=== PATIENT | male | born 1940 | race Caucasian/White ===

== ENCOUNTER 2017-06-29 17:19 | Emergency (ER) | payer MEDICARE ==
[~2017-06-29] VITALS: Ht 182.9 cm; Wt 115.7 kg
[~2017-06-29 17:19] MED LIST: ALBU3IS INH; ALBU90OI6 INH; ASPI325 PO; AZIT250; CAPT25; CAPT25 PO; CEPH500 PO; CIPR500 PO; CLAR500 PO; CLIN300 PO; Cipro500 MG PO; DILT120ERA PO; DILT60 PO; DIPH25 PO; DOXY100 PO; ELIQUIS5 MG PO; ESOM20; ESOM20 PO; FLUSAL2505; FLUSAL2505 IH; FURO40; FURO40 PO; Flonase 0.05% N16 GM; GABA300 PO; GLIP2.5ER PO; GLYB2.5 PO; GUAI600T33 PO; HYDACE10B PO; HYDACE5 PO; HYDACE7.5; HYDCHL25; HYDCHL50; INDO50 PO; ISRA5 PO; LEVFLO500 PO; LEVO750 PO; LISI20 PO; LORA2 PO; METF500; METF500 PO; METO.5 PO; METO100ER PO; METO2.5 PO; METO25ER; METO25ER PO; METO50ER; METO50ER PO; METR500 PO; MONT10T; MONT10T PO; Micro-K10 MEQ PO; Mupirocin22 GM TOP; Norco 7.5-3251 EACH PO; OMEPRAZOLE MAGN20 MG PO; ONDA4 PO; OSEL75CA PO; PIOG15; PIOG30 PO; PIOG45 PO; POTCHL10ER; POTCHL10ER PO; PRED10 PO; PRED20 PO; PROCODE120 PO; Prednisone50 MG PO; Prinivil5 MG; RANI150 PO; SIMV40 PO; SODCHL.65S; Silvadene20 GM TOP; TRAZ100; Zofran Odt4 MG SL; [UNRECOGNIZED DRUG - CODE]; [UNRECOGNIZED DRUG - REMARK]
[2017-06-29] MEDS ORDERED: Voltaren100 GM TOP (18:49)
[2018-01-10] MEDS ORDERED: METO100ER PO (19:55)
[2018-01-11] MEDS ORDERED: GABA300 PO (08:26)
[2018-01-11] MEDS ORDERED: CITA20 PO (17:30)
[2018-01-17] MEDS ORDERED: LIDO700A20 TOP (13:00)
[2018-01-17] MEDS ORDERED: CLARITIN10 MG PO (13:02)
[2018-01-17] MEDS ORDERED: LORA2 PO (13:03)
[2018-01-17] MEDS ORDERED: PIOG30 PO (13:04)
[2018-05-26] MEDS ORDERED: ALLO100 PO (17:10)
[2018-05-26] MEDS ORDERED: METO2.5 PO (17:11)
[2018-05-26] MEDS ORDERED: LOSA50 PO (17:15)
[2018-05-26] MEDS ORDERED: MONT10T PO (17:17)
[2018-05-26] MEDS ORDERED: ONDA8 PO (17:18)
[2018-05-26] MEDS ORDERED: ALBU90OI INH (17:19)
[2018-05-26] MEDS ORDERED: CEPH500 PO (17:27)
[2018-06-01] MEDS ORDERED: ALBU90OI INH (14:39)
[2018-06-01] MEDS ORDERED: FURO40 PO (14:47)
== END 2017-06-29 18:52 | disposition home or self-care (01) ==
LOC: ER 17:19
DX: M25.561 Pain in right knee (principal); E11.9 Type 2 diabetes mellitus without complications; I10 Essential (primary) hypertension; I48.91 Unspecified atrial fibrillation; Z79.84 Long term (current) use of oral hypoglycemic drugs; Z87.891 Personal history of nicotine dependence; Z88.0 Allergy status to penicillin; Z91.018 Allergy to other foods; Z79.899 Other long term (current) drug therapy
CPT/HCPCS: 73562-RT; 99282

== ENCOUNTER → 2017-07-15 | Outpatient (CLI) | payer MEDICARE ==
[~2017-07-15] MED LIST changes: +ALBU90OI INH; +ALLO100 PO; +BENZ100A PO; +CITA20 PO; +CLARITIN10 MG PO; +HYDR1TAB94 PO; +K-Tab10 MEQ PO; +LIDO700A20 TOP; +LOSA50 PO; +ONDA8 PO; +Voltaren100 GM TOP
[2017-07-15 14:26] LABS: BASOPHILS ABSOLUTE AUTO 0.05 K/mm3 (0.00-0.23); BASOPHILS PERCENT AUTO 1 % (0-2); EOSINOPHILS ABSOLUTE AUTO 0.16 K/mm3 (0.00-0.68); EOSINOPHILS PERCENT AUTO 2 % (0-6); Hematocrit 33.5 % (37.0-53.0); Hemoglobin 11.1 g/dL (13.5-17.5); IMMATURE GRAN ABSOLUTE AUTO 0.09 K/mm3 (0.00-0.10); IMMATURE GRAN PERCENT AUTO 1 % (0-1); LYMPHOCYTES ABSOLUTE AUTO 1.96 K/mm3 (0.84-5.20); LYMPHOCYTES PERCENT AUTO 24 % (21-46); MONOCYTES ABSOLUTE AUTO 0.63 K/mm3 (0.16-1.47); MONOCYTES PERCENT AUTO 8 % (4-13); Mean Corpuscular HGB 28.3 pg (26.0-34.0); Mean Corpuscular HGB Conc 33.1 g/dL (31.5-36.5); Mean Corpuscular Volume 86 fL (80-100); Mean Platelet Volume 10.1 fL (9.1-12.4); NEUTROPHILS ABSOLUTE AUTO 5.39 K/mm3 (1.96-9.15); NEUTROPHILS PERCENT AUTO 65 % (41-73); Platelet Count 207 K/mm3 (150-400); RDW Coefficient Variation 16.1 % (11.7-14.2); RDW Standard Deviation 49.5 fL (35.1-46.3); Red Blood Cell Count 3.92 M/mm3 (4.30-5.90); White Blood Cell Count 8.28 K/mm3 (4.00-11.30)
[2017-07-15 14:34] LABS: Alanine Aminotransfer (ALT/SGP 20 U/L (12-78); Albumin, Blood 3.5 g/dL (3.4-5.0); Albumin/Globulin Ratio 1.1 (0.8-1.8); Alk Phos 99 U/L (40-126); Anion Gap 8 mmol/L (6-16); Aspartate Aminotrans (AST/SGOT 19 U/L (12-37); Bilirubin, Total 0.9 mg/dL (0.1-1.0); Blood Urea Nitrogen 10 mg/dL (8-24); Bun/Creatinine Ratio 9.5 (12.0-20.0); CO2, Blood 25 mmol/L (21-32); Calcium, Blood 8.6 mg/dL (8.5-10.1); Chloride, Blood 98 mmol/L (98-108); Creatinine, Blood 1.05 mg/dL (0.60-1.20); Globulin, Blood 3.1 g/dL (2.2-4.0); Glomerular Filtration Rate >60 (60-); Glucose, Blood 124 mg/dL (70-99); Potassium, Blood 4.4 mmol/L (3.5-5.5); Sodium, Blood 131 mmol/L (136-145); Total Protein, Blood 6.6 g/dL (6.4-8.2)
== END ==
LOC: LAB SHORT 14:11
PROVIDERS: Physician Assistant
DX: R06.00 Dyspnea, unspecified (principal)
CPT/HCPCS: 80053; 83880; 85025

== ENCOUNTER → 2017-11-30 | Outpatient (CLI) | payer MEDICARE ==
[~2017-11-30] MED LIST changes: -ALBU90OI INH; -ALLO100 PO; -BENZ100A PO; -CITA20 PO; -CLARITIN10 MG PO; +DILT120 PO; -GLIP2.5ER PO; +GLIP5 PO; -HYDR1TAB94 PO; -K-Tab10 MEQ PO; -LIDO700A20 TOP; -LOSA50 PO; +Norco 10-325 T1 EACH PO; -ONDA8 PO
== END | disposition home or self-care (01) ==
LOC: LAB 14:30 → LAB SHORT 14:30
DX: L03.115 Cellulitis of right lower limb (principal)
CPT/HCPCS: 87070; 87205

== ENCOUNTER 2018-01-05 14:08 | Emergency (ER) | payer MEDICARE ==
[~2018-01-05] VITALS: Ht 185.4 cm; Wt 118.8 kg
[2018-01-05 16:24] LABS: BASOPHILS ABSOLUTE AUTO 0.06 K/mm3 (0.00-0.23); BASOPHILS PERCENT AUTO 1 % (0-2); EOSINOPHILS ABSOLUTE AUTO 0.17 K/mm3 (0.00-0.68); EOSINOPHILS PERCENT AUTO 2 % (0-6); Hemoglobin 12.3 g/dL (13.5-17.5); IMMATURE GRAN ABSOLUTE AUTO 0.09 K/mm3 (0.00-0.10); IMMATURE GRAN PERCENT AUTO 1 % (0-1); LYMPHOCYTES ABSOLUTE AUTO 2.57 K/mm3 (0.84-5.20); LYMPHOCYTES PERCENT AUTO 22 % (21-46); MONOCYTES ABSOLUTE AUTO 1.65 K/mm3 (0.16-1.47); MONOCYTES PERCENT AUTO 14 % (4-13); Mean Corpuscular HGB 28.1 pg (26.0-34.0); Mean Corpuscular HGB Conc 33.2 g/dL (31.5-36.5); Mean Corpuscular Volume 85 fL (80-100); Mean Platelet Volume 9.4 fL (9.1-12.4); NEUTROPHILS ABSOLUTE AUTO 6.91 K/mm3 (1.96-9.15); NEUTROPHILS PERCENT AUTO 60 % (41-73); Platelet Count 325 K/mm3 (150-400); RDW Coefficient Variation 14.2 % (11.7-14.2); Red Blood Cell Count 4.37 M/mm3 (4.30-5.90); White Blood Cell Count 11.45 K/mm3 (4.00-11.30)
[2018-01-05 16:39] LABS: Bun/Creatinine Ratio 33.8 (12.0-20.0); Calcium, Blood 9.4 mg/dL (8.5-10.1); Creatinine, Blood 1.45 mg/dL (0.60-1.20); Potassium, Blood 2.7 mmol/L (3.5-5.5)
[2018-01-05] MEDS ORDERED: HYDR1TAB94 PO (17:22)
[2018-01-05] MEDS ORDERED: K-Tab10 MEQ PO (17:22)
== END 2018-01-05 19:22 | disposition home or self-care (01) ==
LOC: ER 14:08
PROVIDERS: Emergency Medicine
DX: M17.0 Bilateral primary osteoarthritis of knee (principal); E87.6 Hypokalemia; E11.40 Type 2 diabetes mellitus with diabetic neuropathy, unspecified; I10 Essential (primary) hypertension; I48.91 Unspecified atrial fibrillation; Z88.0 Allergy status to penicillin; Z91.018 Allergy to other foods; Z79.899 Other long term (current) drug therapy; Z79.01 Long term (current) use of anticoagulants; Z79.84 Long term (current) use of oral hypoglycemic drugs
CPT/HCPCS: 36415; 80048; 82550; 85025; 96365; 96366; 96368; 99283-25; J3475; J3480

== ENCOUNTER → 2018-01-24 | Outpatient (CLI) | payer MEDICARE ==
[~2018-01-24] MED LIST changes: +CITA20 PO; +CLARITIN10 MG PO; +HYDR1TAB94 PO; +K-Tab10 MEQ PO; +LIDO700A20 TOP
== END | disposition home or self-care (01) ==
LOC: LAB SHORT 17:00 → LAB 17:00
DX: L03.115 Cellulitis of right lower limb (principal)
CPT/HCPCS: 87070; 87077; 87147; 87186; 87205

== ENCOUNTER 2018-02-18 12:33 | Inpatient (IN) | payer MEDICARE ==
[~2018-02-18] VITALS: Ht 182.9 cm; Wt 125.0 kg
[2018-02-18 13:01] LABS: BASOPHILS ABSOLUTE AUTO 0.06 K/mm3 (0.00-0.23); BASOPHILS PERCENT AUTO 1 % (0-2); EOSINOPHILS ABSOLUTE AUTO 0.14 K/mm3 (0.00-0.68); EOSINOPHILS PERCENT AUTO 2 % (0-6); Hematocrit 35.1 % (37.0-53.0); Hemoglobin 11.1 g/dL (13.5-17.5); IMMATURE GRAN ABSOLUTE AUTO 0.04 K/mm3 (0.00-0.10); IMMATURE GRAN PERCENT AUTO 1 % (0-1); LYMPHOCYTES ABSOLUTE AUTO 2.13 K/mm3 (0.84-5.20); LYMPHOCYTES PERCENT AUTO 26 % (21-46); MONOCYTES ABSOLUTE AUTO 0.86 K/mm3 (0.16-1.47); MONOCYTES PERCENT AUTO 11 % (4-13); Mean Corpuscular HGB 26.9 pg (26.0-34.0); Mean Corpuscular HGB Conc 31.6 g/dL (31.5-36.5); Mean Corpuscular Volume 85 fL (80-100); Mean Platelet Volume 9.4 fL (9.1-12.4); NEUTROPHILS ABSOLUTE AUTO 4.91 K/mm3 (1.96-9.15); NEUTROPHILS PERCENT AUTO 60 % (41-73); Platelet Count 298 K/mm3 (150-400); RDW Coefficient Variation 15.9 % (11.7-14.2); RDW Standard Deviation 48.5 fL (35.1-46.3); Red Blood Cell Count 4.12 M/mm3 (4.30-5.90); White Blood Cell Count 8.14 K/mm3 (4.00-11.30)
[2018-02-18 13:25] LABS: Alanine Aminotransfer (ALT/SGP 21 U/L (12-78); Albumin/Globulin Ratio 0.7 (0.8-1.8); Alk Phos 106 U/L (50-136); Anion Gap 10 mmol/L (6-16); Aspartate Aminotrans (AST/SGOT 36 U/L (12-37); Bilirubin, Total 3.2 mg/dL (0.1-1.0); Blood Urea Nitrogen 8 mg/dL (8-24); Bun/Creatinine Ratio 9.5 (12.0-20.0); CO2, Blood 25 mmol/L (21-32); Calcium, Blood 7.9 mg/dL (8.5-10.1); Chloride, Blood 91 mmol/L (98-108); Creatinine, Blood 0.84 mg/dL (0.60-1.20); Ethanol (Alcohol), Blood, Med <3 mg/dL; Globulin, Blood 4.2 g/dL (2.2-4.0); Glomerular Filtration Rate >60 (60-); Glucose, Blood 139 mg/dL (70-99); Magnesium, Blood 1.7 mg/dL (1.6-2.4); Potassium, Blood 4.1 mmol/L (3.5-5.5); Sodium, Blood 126 mmol/L (136-145); Total Protein, Blood 7.2 g/dL (6.4-8.2); Troponin I <0.015 ng/mL (0.000-0.040)
[2018-02-18 13:40] LABS: Bicarbonate Venous 26.7 mmol/L (24.0-30.0); PCO2 Venous 44.3 mmHg (38-42); PO2 Venous 149 mmHg (38-42); pH Blood Venous 7.41 (7.34-7.37)
[2018-02-18 13:52] LABS: Source, Urine Clean Catch
[2018-02-18 14:07] LABS: Appearance, Urine Clear (Clear); Bilirubin, Urine Neg (Neg); Blood, Urine Neg (Neg); Color, Urine Yellow (P-Yellow); Glucose Qualitative, Urine Neg (Neg); Ketones, Urine Neg (Neg); Leukocyte Esterase, Urine Neg (Neg); Nitrite, Urine Neg (Neg); Protein, Urine 1+ (Neg); Urobilinogen, Urine 1+ (Normal); pH, Urine 6.5 (5.0-8.0)
[2018-02-18 14:11] LABS: U Amphetamine Screen Not Detected; U Barbituate Screen Not Detected; U Benzodiazapine Screen DETECTED; U Buprenorphine Screen Not Detected; U Cannabinoids Screen Not Detected; U Cocaine Screen Not Detected; U Methadone Screen Not Detected; U Methamphetamine Screen Not Detected; U Opiates Screen DETECTED; U Oxycodone Screen Not Detected; U Phencyclidine Screen Not Detected; U Propoxyphene Screen Not Detected
[2018-02-19 04:14] LABS: Hematocrit 34.4 % (37.0-53.0); Hemoglobin 11.1 g/dL (13.5-17.5); Mean Corpuscular HGB 27.3 pg (26.0-34.0); Mean Corpuscular HGB Conc 32.3 g/dL (31.5-36.5); Mean Corpuscular Volume 85 fL (80-100); Mean Platelet Volume 8.8 fL (9.1-12.4); Platelet Count 270 K/mm3 (150-400); RDW Coefficient Variation 15.8 % (11.7-14.2); RDW Standard Deviation 48.3 fL (35.1-46.3); Red Blood Cell Count 4.07 M/mm3 (4.30-5.90); White Blood Cell Count 7.92 K/mm3 (4.00-11.30)
[2018-02-19 04:33] LABS: Alanine Aminotransfer (ALT/SGP 16 U/L (12-78); Albumin/Globulin Ratio 0.8 (0.8-1.8); Alk Phos 99 U/L (50-136); Anion Gap 10 mmol/L (6-16); Aspartate Aminotrans (AST/SGOT 26 U/L (12-37); Bilirubin, Total 2.5 mg/dL (0.1-1.0); Blood Urea Nitrogen 8 mg/dL (8-24); CO2, Blood 26 mmol/L (21-32); Chloride, Blood 95 mmol/L (98-108); Creatinine, Blood 0.89 mg/dL (0.60-1.20); Globulin, Blood 3.8 g/dL (2.2-4.0); Glomerular Filtration Rate >60 (60-); Glucose, Blood 100 mg/dL (70-99); Potassium, Blood 3.9 mmol/L (3.5-5.5); Sodium, Blood 131 mmol/L (136-145); Total Protein, Blood 6.8 g/dL (6.4-8.2)
[2018-02-19 09:00] LABS: Adenovirus F 40/41 Not Detected (NOT DETECT); Astrovirus Not Detected (NOT DETECT); Campylobacter Sp Not Detected (NOT DETECT); Cryptosporidium Not Detected (NOT DETECT); Cyclospora Cayetanensis Not Detected (NOT DETECT); E. Coli O157 Not Detected (NOT DETECT); Entamoeba Histolytica Not Detected (NOT DETECT); Enteroaggregative E. coli-EAEC Not Detected (NOT DETECT); Enteropathogenic E. coli-EPEC Not Detected (NOT DETECT); Enterotoxigenic E. coli-ETEC Not Detected (NOT DETECT); Giardia Lamblia Not Detected (NOT DETECT); Norovirus GI/GII Not Detected (NOT DETECT); Plesiomonas Shigelloides Not Detected (NOT DETECT); Rotavirus A Not Detected (NOT DETECT); Sapovirus Not Detected (NOT DETECT); Shiga Toxin-prod E. coli-STEC Not Detected (NOT DETECT); Shigella/Enteroin E. coli-EIEC Not Detected (NOT DETECT); Vibrio Cholerae Not Detected (NOT DETECT); Vibrio Sp Not Detected (NOT DETECT); Yersinia Enterocolitica Not Detected (NOT DETECT)
[2018-02-19 10:35] LABS: Salmonella Sp Detected (NOT DETECT)
[2018-02-20 04:58] LABS: Anion Gap 10 mmol/L (6-16); Blood Urea Nitrogen 9 mg/dL (8-24); Bun/Creatinine Ratio 10.1 (12.0-20.0); CO2, Blood 28 mmol/L (21-32); Calcium, Blood 8.4 mg/dL (8.5-10.1); Chloride, Blood 97 mmol/L (98-108); Creatinine, Blood 0.89 mg/dL (0.60-1.20); Glomerular Filtration Rate >60 (60-); Glucose, Blood 132 mg/dL (70-99); Potassium, Blood 3.3 mmol/L (3.5-5.5); Sodium, Blood 135 mmol/L (136-145)
== END 2018-02-20 14:04 | disposition home or self-care (01) | DRG 372 ==
LOC: ER 12:33 → SURS 12:34
PROVIDERS: Emergency Medicine; Hospitalist; Internal Medicine
DX: A02.0 Salmonella enteritis (principal); E87.1 Hypo-osmolality and hyponatremia; I50.30 Unspecified diastolic (congestive) heart failure; L97.919 Non-pressure chronic ulcer of unspecified part of right lower leg with unspecified severity; I11.0 Hypertensive heart disease with heart failure; I48.2 Chronic atrial fibrillation; E11.40 Type 2 diabetes mellitus with diabetic neuropathy, unspecified; E78.00 Pure hypercholesterolemia, unspecified; G47.33 Obstructive sleep apnea (adult) (pediatric); J44.9 Chronic obstructive pulmonary disease, unspecified; K21.9 Gastro-esophageal reflux disease without esophagitis; M19.90 Unspecified osteoarthritis, unspecified site; K80.20 Calculus of gallbladder without cholecystitis without obstruction; F32.9 Major depressive disorder, single episode, unspecified; G89.4 Chronic pain syndrome; Z99.81 Dependence on supplemental oxygen; Z87.891 Personal history of nicotine dependence; Z88.0 Allergy status to penicillin; Z91.018 Allergy to other foods; Z79.01 Long term (current) use of anticoagulants; Z79.84 Long term (current) use of oral hypoglycemic drugs; Z79.899 Other long term (current) drug therapy
CPT/HCPCS: 36415; 71045; 74177; 76705; 80048; 80053; 82803; 82947; 83690; 83735; 84484; 85025; 85027; 87507; 93005; 93010; 94640; 94760; 96374; 96375; 99285-25; G0480; J1200; J1940; J2405; J2765; J7030; J7120; Q9967

== ENCOUNTER 2018-02-21 10:51 | Inpatient (IN) | payer MEDICARE ==
[~2018-02-21] VITALS: Ht 182.9 cm; Wt 142.0 kg
[2018-02-21 11:53] LABS: BASOPHILS ABSOLUTE AUTO 0.06 K/mm3 (0.00-0.23); BASOPHILS PERCENT AUTO 0 % (0-2); EOSINOPHILS PERCENT AUTO 0 % (0-6); Hematocrit 35.8 % (37.0-53.0); Hemoglobin 11.4 g/dL (13.5-17.5); IMMATURE GRAN ABSOLUTE AUTO 0.11 K/mm3 (0.00-0.10); IMMATURE GRAN PERCENT AUTO 1 % (0-1); LYMPHOCYTES ABSOLUTE AUTO 1.38 K/mm3 (0.84-5.20); LYMPHOCYTES PERCENT AUTO 9 % (21-46); MONOCYTES ABSOLUTE AUTO 1.46 K/mm3 (0.16-1.47); MONOCYTES PERCENT AUTO 9 % (4-13); Mean Corpuscular HGB 27.3 pg (26.0-34.0); Mean Corpuscular HGB Conc 31.8 g/dL (31.5-36.5); Mean Corpuscular Volume 86 fL (80-100); Mean Platelet Volume 8.7 fL (9.1-12.4); NEUTROPHILS ABSOLUTE AUTO 12.94 K/mm3 (1.96-9.15); NEUTROPHILS PERCENT AUTO 81 % (41-73); Platelet Count 244 K/mm3 (150-400); RDW Coefficient Variation 16.6 % (11.7-14.2); RDW Standard Deviation 50.3 fL (35.1-46.3); Red Blood Cell Count 4.18 M/mm3 (4.30-5.90); White Blood Cell Count 15.95 K/mm3 (4.00-11.30)
[2018-02-21 12:10] LABS: Alanine Aminotransfer (ALT/SGP 19 U/L (12-78); Albumin, Blood 3.1 g/dL (3.4-5.0); Albumin/Globulin Ratio 0.8 (0.8-1.8); Alk Phos 96 U/L (50-136); Anion Gap 11 mmol/L (6-16); Aspartate Aminotrans (AST/SGOT 29 U/L (12-37); Bilirubin, Total 2.5 mg/dL (0.1-1.0); Blood Urea Nitrogen 7 mg/dL (8-24); Bun/Creatinine Ratio 9.3 (12.0-20.0); CO2, Blood 25 mmol/L (21-32); Calcium, Blood 8.2 mg/dL (8.5-10.1); Chloride, Blood 92 mmol/L (98-108); Creatinine, Blood 0.76 mg/dL (0.60-1.20); Glomerular Filtration Rate >60 (60-); Glucose, Blood 129 mg/dL (70-99); Potassium, Blood 3.8 mmol/L (3.5-5.5); Sodium, Blood 128 mmol/L (136-145); Total Protein, Blood 7.1 g/dL (6.4-8.2)
[2018-02-21 16:11] LABS: Source, Urine Clean Catch
[2018-02-21 16:16] LABS: Appearance, Urine Clear (Clear); Bilirubin, Urine Neg (Neg); Blood, Urine 2+ (Neg); Color, Urine Yellow (P-Yellow); Glucose Qualitative, Urine Neg (Neg); Ketones, Urine 3+ (Neg); Leukocyte Esterase, Urine 1+ (Neg); Nitrite, Urine Neg (Neg); Protein, Urine 2+ (Neg); Specific Gravity, Urine 1.015 (1.003-1.022); Urobilinogen, Urine NORM (Normal)
[2018-02-21 16:28] LABS: Bacteria Rare /hpf; Red Blood Cells, Urine 0-2 /hpf (0-2); Squamous Epithelial Cells Rare /hpf (Few); White Blood Cells, Urine 0-2 /hpf (0-5)
[2018-02-22 05:34] LABS: BASOPHILS ABSOLUTE AUTO 0.02 K/mm3 (0.00-0.23); BASOPHILS PERCENT AUTO 0 % (0-2); EOSINOPHILS PERCENT AUTO 0 % (0-6); Hematocrit 32.5 % (37.0-53.0); Hemoglobin 10.4 g/dL (13.5-17.5); IMMATURE GRAN ABSOLUTE AUTO 0.05 K/mm3 (0.00-0.10); IMMATURE GRAN PERCENT AUTO 1 % (0-1); LYMPHOCYTES ABSOLUTE AUTO 0.65 K/mm3 (0.84-5.20); LYMPHOCYTES PERCENT AUTO 7 % (21-46); MONOCYTES ABSOLUTE AUTO 0.85 K/mm3 (0.16-1.47); MONOCYTES PERCENT AUTO 10 % (4-13); Mean Corpuscular HGB 26.8 pg (26.0-34.0); Mean Corpuscular Volume 84 fL (80-100); Mean Platelet Volume 9.1 fL (9.1-12.4); NEUTROPHILS ABSOLUTE AUTO 7.26 K/mm3 (1.96-9.15); NEUTROPHILS PERCENT AUTO 82 % (41-73); Platelet Count 201 K/mm3 (150-400); RDW Coefficient Variation 16.4 % (11.7-14.2); RDW Standard Deviation 49.4 fL (35.1-46.3); Red Blood Cell Count 3.88 M/mm3 (4.30-5.90); White Blood Cell Count 8.83 K/mm3 (4.00-11.30)
[2018-02-22 05:57] LABS: Alanine Aminotransfer (ALT/SGP 18 U/L (12-78); Albumin, Blood 2.5 g/dL (3.4-5.0); Albumin/Globulin Ratio 0.7 (0.8-1.8); Alk Phos 74 U/L (50-136); Anion Gap 11 mmol/L (6-16); Aspartate Aminotrans (AST/SGOT 32 U/L (12-37); Bilirubin, Direct 0.7 mg/dL (0.0-0.3); Bilirubin, Indirect 1.2 mg/dL (0.1-0.7); Bilirubin, Total 1.9 mg/dL (0.1-1.0); Blood Urea Nitrogen 8 mg/dL (8-24); Bun/Creatinine Ratio 11.2 (12.0-20.0); CO2, Blood 23 mmol/L (21-32); Calcium, Blood 7.9 mg/dL (8.5-10.1); Chloride, Blood 93 mmol/L (98-108); Creatinine, Blood 0.71 mg/dL (0.60-1.20); Globulin, Blood 3.5 g/dL (2.2-4.0); Glomerular Filtration Rate >60 (60-); Glucose, Blood 134 mg/dL (70-99); Potassium, Blood 2.9 mmol/L (3.5-5.5); Sodium, Blood 127 mmol/L (136-145)
[2018-02-23 04:59] LABS: BASOPHILS ABSOLUTE AUTO 0.02 K/mm3 (0.00-0.23); BASOPHILS PERCENT AUTO 0 % (0-2); EOSINOPHILS ABSOLUTE AUTO 0.03 K/mm3 (0.00-0.68); EOSINOPHILS PERCENT AUTO 1 % (0-6); Hemoglobin 10.2 g/dL (13.5-17.5); IMMATURE GRAN ABSOLUTE AUTO 0.04 K/mm3 (0.00-0.10); IMMATURE GRAN PERCENT AUTO 1 % (0-1); LYMPHOCYTES ABSOLUTE AUTO 0.93 K/mm3 (0.84-5.20); LYMPHOCYTES PERCENT AUTO 15 % (21-46); MONOCYTES ABSOLUTE AUTO 0.93 K/mm3 (0.16-1.47); MONOCYTES PERCENT AUTO 15 % (4-13); Mean Corpuscular HGB 27.1 pg (26.0-34.0); Mean Corpuscular HGB Conc 32.9 g/dL (31.5-36.5); Mean Corpuscular Volume 82 fL (80-100); NEUTROPHILS ABSOLUTE AUTO 4.38 K/mm3 (1.96-9.15); NEUTROPHILS PERCENT AUTO 69 % (41-73); Platelet Count 184 K/mm3 (150-400); RDW Coefficient Variation 16.1 % (11.7-14.2); RDW Standard Deviation 48.1 fL (35.1-46.3); Red Blood Cell Count 3.76 M/mm3 (4.30-5.90); White Blood Cell Count 6.33 K/mm3 (4.00-11.30)
[2018-02-23 05:16] LABS: Alanine Aminotransfer (ALT/SGP 17 U/L (12-78); Albumin, Blood 2.4 g/dL (3.4-5.0); Albumin/Globulin Ratio 0.7 (0.8-1.8); Alk Phos 68 U/L (50-136); Anion Gap 9 mmol/L (6-16); Aspartate Aminotrans (AST/SGOT 27 U/L (12-37); Bilirubin, Total 1.5 mg/dL (0.1-1.0); Blood Urea Nitrogen 10 mg/dL (8-24); Bun/Creatinine Ratio 13.9 (12.0-20.0); CO2, Blood 25 mmol/L (21-32); Calcium, Blood 7.4 mg/dL (8.5-10.1); Chloride, Blood 94 mmol/L (98-108); Creatinine, Blood 0.72 mg/dL (0.60-1.20); Globulin, Blood 3.3 g/dL (2.2-4.0); Glomerular Filtration Rate >60 (60-); Glucose, Blood 114 mg/dL (70-99); Sodium, Blood 128 mmol/L (136-145); Total Protein, Blood 5.7 g/dL (6.4-8.2)
[2018-02-24 04:52] LABS: BASOPHILS ABSOLUTE AUTO 0.03 K/mm3 (0.00-0.23); BASOPHILS PERCENT AUTO 1 % (0-2); EOSINOPHILS ABSOLUTE AUTO 0.12 K/mm3 (0.00-0.68); EOSINOPHILS PERCENT AUTO 2 % (0-6); Hematocrit 31.6 % (37.0-53.0); Hemoglobin 10.1 g/dL (13.5-17.5); IMMATURE GRAN ABSOLUTE AUTO 0.04 K/mm3 (0.00-0.10); IMMATURE GRAN PERCENT AUTO 1 % (0-1); LYMPHOCYTES ABSOLUTE AUTO 1.32 K/mm3 (0.84-5.20); LYMPHOCYTES PERCENT AUTO 25 % (21-46); MONOCYTES ABSOLUTE AUTO 0.76 K/mm3 (0.16-1.47); MONOCYTES PERCENT AUTO 15 % (4-13); Mean Corpuscular HGB 26.8 pg (26.0-34.0); Mean Corpuscular Volume 84 fL (80-100); Mean Platelet Volume 9.2 fL (9.1-12.4); NEUTROPHILS ABSOLUTE AUTO 2.96 K/mm3 (1.96-9.15); NEUTROPHILS PERCENT AUTO 57 % (41-73); Platelet Count 181 K/mm3 (150-400); RDW Coefficient Variation 15.8 % (11.7-14.2); RDW Standard Deviation 47.9 fL (35.1-46.3); Red Blood Cell Count 3.77 M/mm3 (4.30-5.90); White Blood Cell Count 5.23 K/mm3 (4.00-11.30)
[2018-02-24 05:06] LABS: Anion Gap 8 mmol/L (6-16); Blood Urea Nitrogen 11 mg/dL (8-24); Bun/Creatinine Ratio 14.9 (12.0-20.0); CO2, Blood 25 mmol/L (21-32); Calcium, Blood 7.7 mg/dL (8.5-10.1); Chloride, Blood 98 mmol/L (98-108); Creatinine, Blood 0.74 mg/dL (0.60-1.20); Glomerular Filtration Rate >60 (60-); Glucose, Blood 102 mg/dL (70-99); Potassium, Blood 3.1 mmol/L (3.5-5.5); Sodium, Blood 131 mmol/L (136-145)
[2018-02-25 06:09] LABS: BASOPHILS ABSOLUTE AUTO 0.04 K/mm3 (0.00-0.23); BASOPHILS PERCENT AUTO 1 % (0-2); EOSINOPHILS ABSOLUTE AUTO 0.25 K/mm3 (0.00-0.68); EOSINOPHILS PERCENT AUTO 4 % (0-6); Hematocrit 33.5 % (37.0-53.0); Hemoglobin 10.6 g/dL (13.5-17.5); IMMATURE GRAN ABSOLUTE AUTO 0.03 K/mm3 (0.00-0.10); IMMATURE GRAN PERCENT AUTO 1 % (0-1); LYMPHOCYTES ABSOLUTE AUTO 1.67 K/mm3 (0.84-5.20); LYMPHOCYTES PERCENT AUTO 29 % (21-46); MONOCYTES ABSOLUTE AUTO 0.77 K/mm3 (0.16-1.47); MONOCYTES PERCENT AUTO 14 % (4-13); Mean Corpuscular HGB 26.6 pg (26.0-34.0); Mean Corpuscular HGB Conc 31.6 g/dL (31.5-36.5); Mean Corpuscular Volume 84 fL (80-100); Mean Platelet Volume 9.4 fL (9.1-12.4); NEUTROPHILS ABSOLUTE AUTO 2.93 K/mm3 (1.96-9.15); NEUTROPHILS PERCENT AUTO 52 % (41-73); Platelet Count 195 K/mm3 (150-400); RDW Coefficient Variation 15.9 % (11.7-14.2); RDW Standard Deviation 48.7 fL (35.1-46.3); Red Blood Cell Count 3.99 M/mm3 (4.30-5.90); White Blood Cell Count 5.69 K/mm3 (4.00-11.30)
[2018-02-25 06:23] LABS: Anion Gap 9 mmol/L (6-16); Blood Urea Nitrogen 9 mg/dL (8-24); Bun/Creatinine Ratio 12.9 (12.0-20.0); CO2, Blood 26 mmol/L (21-32); Calcium, Blood 7.9 mg/dL (8.5-10.1); Chloride, Blood 101 mmol/L (98-108); Glomerular Filtration Rate >60 (60-); Glucose, Blood 127 mg/dL (70-99); Potassium, Blood 3.1 mmol/L (3.5-5.5); Sodium, Blood 136 mmol/L (136-145)
[2018-02-26 04:58] LABS: BASOPHILS ABSOLUTE AUTO 0.04 K/mm3 (0.00-0.23); BASOPHILS PERCENT AUTO 1 % (0-2); EOSINOPHILS ABSOLUTE AUTO 0.24 K/mm3 (0.00-0.68); EOSINOPHILS PERCENT AUTO 4 % (0-6); Hematocrit 33.6 % (37.0-53.0); Hemoglobin 10.6 g/dL (13.5-17.5); IMMATURE GRAN ABSOLUTE AUTO 0.04 K/mm3 (0.00-0.10); IMMATURE GRAN PERCENT AUTO 1 % (0-1); LYMPHOCYTES ABSOLUTE AUTO 1.63 K/mm3 (0.84-5.20); LYMPHOCYTES PERCENT AUTO 29 % (21-46); MONOCYTES PERCENT AUTO 13 % (4-13); Mean Corpuscular HGB Conc 31.5 g/dL (31.5-36.5); Mean Corpuscular Volume 86 fL (80-100); Mean Platelet Volume 9.3 fL (9.1-12.4); NEUTROPHILS PERCENT AUTO 52 % (41-73); Platelet Count 223 K/mm3 (150-400); RDW Coefficient Variation 16.2 % (11.7-14.2); RDW Standard Deviation 50.3 fL (35.1-46.3); Red Blood Cell Count 3.92 M/mm3 (4.30-5.90); White Blood Cell Count 5.55 K/mm3 (4.00-11.30)
[2018-02-26 05:14] LABS: Anion Gap 10 mmol/L (6-16); Blood Urea Nitrogen 5 mg/dL (8-24); Bun/Creatinine Ratio 7.1 (12.0-20.0); CO2, Blood 26 mmol/L (21-32); Calcium, Blood 7.8 mg/dL (8.5-10.1); Chloride, Blood 102 mmol/L (98-108); Creatinine, Blood 0.71 mg/dL (0.60-1.20); Glomerular Filtration Rate >60 (60-); Glucose, Blood 167 mg/dL (70-99); Potassium, Blood 3.2 mmol/L (3.5-5.5); Sodium, Blood 138 mmol/L (136-145)
[2018-02-28] MEDS ORDERED: SIMV40 PO (10:21)
[2018-02-28] MEDS ORDERED: BENZ100A PO (10:21)
== END 2018-02-28 11:05 | disposition home or self-care (01) | DRG 372 ==
LOC: ER 10:51 → MEDS 10:52 → ENPENDDIS 02-28 10:07 → MEDS 02-28 11:05
PROVIDERS: Emergency Medicine; Hospitalist
DX: A02.0 Salmonella enteritis (principal); F11.20 Opioid dependence, uncomplicated; E87.1 Hypo-osmolality and hyponatremia; I50.30 Unspecified diastolic (congestive) heart failure; I13.0 Hypertensive heart and chronic kidney disease with heart failure and stage 1 through stage 4 chronic kidney disease, or unspecified chronic kidney disease; K81.0 Acute cholecystitis; Z99.81 Dependence on supplemental oxygen; Z87.891 Personal history of nicotine dependence; G25.81 Restless legs syndrome; T43.3X5A Adverse effect of phenothiazine antipsychotics and neuroleptics, initial encounter; Y92.9 Unspecified place or not applicable; E11.40 Type 2 diabetes mellitus with diabetic neuropathy, unspecified; J44.9 Chronic obstructive pulmonary disease, unspecified; I48.2 Chronic atrial fibrillation; E78.00 Pure hypercholesterolemia, unspecified; I07.1 Rheumatic tricuspid insufficiency; K21.9 Gastro-esophageal reflux disease without esophagitis; G89.4 Chronic pain syndrome; M19.90 Unspecified osteoarthritis, unspecified site; R26.89 Other abnormalities of gait and mobility; K52.9 Noninfective gastroenteritis and colitis, unspecified; E87.6 Hypokalemia; M79.604 Pain in right leg; R06.02 Shortness of breath; Z79.84 Long term (current) use of oral hypoglycemic drugs
CPT/HCPCS: 36415; 36416; 71045; 78226; 80048; 80053; 81001; 82247; 82248; 82947; 84145; 85025; 87040; 87081; 87086; 87493; 94640; 94664; 94667; 94760; 96361; 96365; 96366; 96367; 96368; 96372; 96374; 96375; 96376; 97116; 97161; 97166; 97530; 97535; 98960; 99284-25; A9537; G0378; G8978; G8979; G8987; G8988; J0696; J1200; J1644; J2405; J3480; J7030; J7050

== ENCOUNTER 2018-03-24 21:10 | Emergency (ER) | payer MEDICARE ==
[~2018-03-24] VITALS: Ht 185.4 cm; Wt 102.1 kg
[~2018-03-24 21:10] MED LIST changes: +BENZ100A PO
== END 2018-03-24 23:01 | disposition home or self-care (01) ==
LOC: ER 21:10
DX: S90.421A Blister (nonthermal), right great toe, initial encounter (principal); E11.9 Type 2 diabetes mellitus without complications; I10 Essential (primary) hypertension; I48.91 Unspecified atrial fibrillation; Z88.0 Allergy status to penicillin; Z91.018 Allergy to other foods; Z79.899 Other long term (current) drug therapy; Z79.01 Long term (current) use of anticoagulants; Z79.84 Long term (current) use of oral hypoglycemic drugs; Z87.891 Personal history of nicotine dependence; X19.XXXA Contact with other heat and hot substances, initial encounter
CPT/HCPCS: 73630; 99283-25

== ENCOUNTER 2018-07-09 23:37 | Emergency (ER) | payer MEDICARE ==
[~2018-07-09] VITALS: Ht 182.9 cm; Wt 122.5 kg
[~2018-07-09 23:37] MED LIST changes: +ALBU90OI INH; +ALLO100 PO; -DILT120 PO; +GLIP2.5ER PO; -GLIP5 PO; +LOSA50 PO; -Norco 10-325 T1 EACH PO; +ONDA8 PO
[2018-07-10 00:25] LABS: BASOPHILS ABSOLUTE AUTO 0.05 K/mm3 (0.00-0.23); BASOPHILS PERCENT AUTO 1 % (0-2); EOSINOPHILS ABSOLUTE AUTO 0.13 K/mm3 (0.00-0.68); EOSINOPHILS PERCENT AUTO 2 % (0-6); Hematocrit 28.9 % (37.0-53.0); Hemoglobin 9.2 g/dL (13.5-17.5); IMMATURE GRAN ABSOLUTE AUTO 0.05 K/mm3 (0.00-0.10); IMMATURE GRAN PERCENT AUTO 1 % (0-1); LYMPHOCYTES PERCENT AUTO 21 % (21-46); MONOCYTES ABSOLUTE AUTO 0.69 K/mm3 (0.16-1.47); MONOCYTES PERCENT AUTO 10 % (4-13); Mean Corpuscular HGB 27.2 pg (26.0-34.0); Mean Corpuscular HGB Conc 31.8 g/dL (31.5-36.5); Mean Corpuscular Volume 86 fL (80-100); Mean Platelet Volume 8.8 fL (9.1-12.4); NEUTROPHILS ABSOLUTE AUTO 4.29 K/mm3 (1.96-9.15); NEUTROPHILS PERCENT AUTO 65 % (41-73); Platelet Count 285 K/mm3 (150-400); RDW Coefficient Variation 15.1 % (11.7-14.2); RDW Standard Deviation 46.8 fL (35.1-46.3); Red Blood Cell Count 3.38 M/mm3 (4.30-5.90); White Blood Cell Count 6.61 K/mm3 (4.00-11.30)
[2018-07-10 00:36] LABS: Source, Urine Voided
[2018-07-10 00:41] LABS: Albumin, Blood 3.1 g/dL (3.4-5.0); Albumin/Globulin Ratio 0.7 (0.8-1.8); Bilirubin, Total 0.9 mg/dL (0.1-1.0); Bun/Creatinine Ratio 19.4 (12.0-20.0); Calcium, Blood 8.1 mg/dL (8.5-10.1); Creatinine, Blood 1.34 mg/dL (0.60-1.20); Globulin, Blood 4.4 g/dL (2.2-4.0); Total Protein, Blood 7.5 g/dL (6.4-8.2)
[2018-07-10 00:44] LABS: Bilirubin, Urine Neg (Neg); Blood, Urine 1+ (Neg); Glucose Qualitative, Urine Neg (Neg); Ketones, Urine Neg (Neg); Leukocyte Esterase, Urine Neg (Neg); Nitrite, Urine Neg (Neg); Protein, Urine Neg (Neg); Urobilinogen, Urine NORM (Normal)
[2018-07-10 00:51] LABS: Appearance, Urine Clear (Clear); Color, Urine Yellow (P-Yellow)
[2018-07-10 00:52] LABS: Bacteria Few /hpf; Red Blood Cells, Urine 0-2 /hpf (0-2); Squamous Epithelial Cells Not Seen /hpf (Few); White Blood Cells, Urine 0-2 /hpf (0-5)
== END 2018-07-10 03:01 | disposition home or self-care (01) ==
LOC: ER 23:37
PROVIDERS: Emergency Medicine
DX: E87.6 Hypokalemia (principal); I11.9 Hypertensive heart disease without heart failure; E11.9 Type 2 diabetes mellitus without complications; I48.91 Unspecified atrial fibrillation; Z88.0 Allergy status to penicillin; Z91.018 Allergy to other foods; Z79.899 Other long term (current) drug therapy
CPT/HCPCS: 80053; 81001; 83735; 85025; 93005; 93010; 96365; 96374; 96376; 99285-25; J1170; J3475

== ENCOUNTER → 2018-07-17 | Outpatient (CLI) | payer MEDICARE ==
[2018-07-17 17:33] LABS: BASOPHILS ABSOLUTE AUTO 0.07 K/mm3 (0.00-0.23); BASOPHILS PERCENT AUTO 1 % (0-2); EOSINOPHILS PERCENT AUTO 3 % (0-6); Hematocrit 28.9 % (37.0-53.0); Hemoglobin 9.4 g/dL (13.5-17.5); IMMATURE GRAN ABSOLUTE AUTO 0.06 K/mm3 (0.00-0.10); IMMATURE GRAN PERCENT AUTO 1 % (0-1); LYMPHOCYTES PERCENT AUTO 21 % (21-46); MONOCYTES ABSOLUTE AUTO 0.86 K/mm3 (0.16-1.47); MONOCYTES PERCENT AUTO 12 % (4-13); Mean Corpuscular HGB 26.9 pg (26.0-34.0); Mean Corpuscular HGB Conc 32.5 g/dL (31.5-36.5); NEUTROPHILS ABSOLUTE AUTO 4.39 K/mm3 (1.96-9.15); NEUTROPHILS PERCENT AUTO 62 % (41-73); Platelet Count 329 K/mm3 (150-400); RDW Coefficient Variation 15.3 % (11.7-14.2); RDW Standard Deviation 46.1 fL (35.1-46.3); White Blood Cell Count 7.08 K/mm3 (4.00-11.30)
[2018-07-17 17:44] LABS: Mean Corpuscular Volume 83 fL (80-100)
[2018-07-17 17:46] LABS: Albumin, Blood 3.2 g/dL (3.4-5.0); Albumin/Globulin Ratio 0.7 (0.8-1.8); Bilirubin, Total 1.4 mg/dL (0.1-1.0); Bun/Creatinine Ratio 15.8 (12.0-20.0); Calcium, Blood 8.9 mg/dL (8.5-10.1); Creatinine, Blood 1.39 mg/dL (0.60-1.20); Globulin, Blood 4.8 g/dL (2.2-4.0); Potassium, Blood 3.3 mmol/L (3.5-5.5)
== END ==
LOC: LAB EV 17:30 → LAB SHORT 17:30
PROVIDERS: Emergency Medicine
DX: L03.119 Cellulitis of unspecified part of limb (principal)
CPT/HCPCS: 80053; 85025; 87040

== ENCOUNTER 2018-08-14 12:54 | Observation (INO) | payer MEDICARE ==
[~2018-08-14] VITALS: Ht 182.9 cm; Wt 113.4 kg
[2018-08-14 14:37] LABS: BASOPHILS ABSOLUTE AUTO 0.06 K/mm3 (0.00-0.23); BASOPHILS PERCENT AUTO 1 % (0-2); EOSINOPHILS ABSOLUTE AUTO 0.31 K/mm3 (0.00-0.68); EOSINOPHILS PERCENT AUTO 5 % (0-6); Hematocrit 25.1 % (37.0-53.0); Hemoglobin 8.1 g/dL (13.5-17.5); IMMATURE GRAN ABSOLUTE AUTO 0.06 K/mm3 (0.00-0.10); IMMATURE GRAN PERCENT AUTO 1 % (0-1); LYMPHOCYTES ABSOLUTE AUTO 1.21 K/mm3 (0.84-5.20); LYMPHOCYTES PERCENT AUTO 21 % (21-46); MONOCYTES ABSOLUTE AUTO 0.81 K/mm3 (0.16-1.47); MONOCYTES PERCENT AUTO 14 % (4-13); Mean Corpuscular HGB 26.3 pg (26.0-34.0); Mean Corpuscular HGB Conc 32.3 g/dL (31.5-36.5); Mean Corpuscular Volume 82 fL (80-100); Mean Platelet Volume 8.9 fL (9.1-12.4); NEUTROPHILS ABSOLUTE AUTO 3.37 K/mm3 (1.96-9.15); NEUTROPHILS PERCENT AUTO 58 % (41-73); Platelet Count 334 K/mm3 (150-400); RDW Coefficient Variation 15.9 % (11.7-14.2); RDW Standard Deviation 46.9 fL (35.1-46.3); Red Blood Cell Count 3.08 M/mm3 (4.30-5.90); White Blood Cell Count 5.82 K/mm3 (4.00-11.30)
[2018-08-14 14:56] LABS: Alanine Aminotransfer (ALT/SGP 17 U/L (12-78); Albumin, Blood 3.1 g/dL (3.4-5.0); Albumin/Globulin Ratio 0.7 (0.8-1.8); Alk Phos 120 U/L (50-136); Anion Gap 9 mmol/L (6-16); Aspartate Aminotrans (AST/SGOT 21 U/L (12-37); Bilirubin, Total 0.7 mg/dL (0.1-1.0); Blood Urea Nitrogen 38 mg/dL (8-24); CO2, Blood 26 mmol/L (21-32); Calcium, Blood 8.6 mg/dL (8.5-10.1); Chloride, Blood 96 mmol/L (98-108); Creatinine, Blood 0.95 mg/dL (0.60-1.20); Globulin, Blood 4.5 g/dL (2.2-4.0); Glomerular Filtration Rate >60 (60-); Glucose, Blood 132 mg/dL (70-99); Potassium, Blood 3.7 mmol/L (3.5-5.5); Sodium, Blood 131 mmol/L (136-145); Total Protein, Blood 7.6 g/dL (6.4-8.2)
[2018-08-14] MEDS ORDERED: VICODIN HP 10-1 EACH PO (16:15)
--- NOTE | 2018-08-14 22:00 | NUR ---
PATIENT COMPLAINING OF PAIN IN BLE. PATIENT WAS MEDICATED FOR PAIN AT 2012. THIS RN EXPLAINED THAT THE PAIN HE WAS FEELING WAS EXPECTED FOR HE HAD JUST HAD DRESSING CHANGES TO BLE BY SALLY NIEVES. PATIENT ALSO REQUESTING HE HAVE ATIVAN AND GABAPENTIN. THIS RN CALLED AND RECEIVED ORDER FOR BOTH MEDICATIONS. PATIENT WAS MEDICATED FOR BOTH AT 2234. PATIENT CONTINUES TO ASK FOR PAIN MEDICATION. PATIENT WAS EDUCATED THAT HE NEEDED TO GIVE THE MEDICATIONS HE JUST RECEIVED TIME TO WORK. PATIENT REQUESTED TO TALK TO THE NEWS COMMENTATOR. KATHARINA NIEVES WAS NOTIFIED.
--- NOTE | 2018-08-15 00:27 | NUR ---
PATIENT STANDING AT BEDSIDE WITH WALKER AN SON IN ROOM. PATIENT STATES HIS LEGS HURT LESS IF HE IS STANDING. FOLLOWED UP WITH PATIENT ON HIS PREVIOUS REQUEST TO TALK TO THE NURSING CERAMIC TILE INSTALLATION HELPER. PATIENT STATES HE WAS SATISIFIED WITH HIS TALK WITH THE CHARGE FOR NOW. PATIENT MEDICATED FOR PAIN ORDERED SEE EMAR. STAFF BRINGING RECLYINER FOR PATIENT TO TRY AND SIT WITH FEET PARTIALLY ELEVATED. PATIENT HAS NOT TOLERATED HAVING LEGS UP IN BED. PT STATES THEY BURN AND HURT TOO MUCH. CALL LIGHT IS WITHIN REACH ANTIBIOTIC STILL INFUSING.
--- NOTE | 2018-08-15 02:10 | NUR ---
PATIENT ASLEEP IN RECLINER CHAIR WITH SON AT BEDSIDE. PATIENTS FEET ARE NOT ELEVATED. CALL LIGHT WITHIN REACH.
[2018-08-15 05:54] LABS: BASOPHILS ABSOLUTE AUTO 0.05 K/mm3 (0.00-0.23); BASOPHILS PERCENT AUTO 1 % (0-2); EOSINOPHILS ABSOLUTE AUTO 0.36 K/mm3 (0.00-0.68); EOSINOPHILS PERCENT AUTO 5 % (0-6); Hematocrit 24.2 % (37.0-53.0); Hemoglobin 7.8 g/dL (13.5-17.5); IMMATURE GRAN ABSOLUTE AUTO 0.08 K/mm3 (0.00-0.10); IMMATURE GRAN PERCENT AUTO 1 % (0-1); LYMPHOCYTES ABSOLUTE AUTO 1.44 K/mm3 (0.84-5.20); LYMPHOCYTES PERCENT AUTO 21 % (21-46); MONOCYTES ABSOLUTE AUTO 0.93 K/mm3 (0.16-1.47); MONOCYTES PERCENT AUTO 14 % (4-13); Mean Corpuscular HGB 26.5 pg (26.0-34.0); Mean Corpuscular HGB Conc 32.2 g/dL (31.5-36.5); Mean Corpuscular Volume 82 fL (80-100); Mean Platelet Volume 8.6 fL (9.1-12.4); NEUTROPHILS PERCENT AUTO 58 % (41-73); Platelet Count 328 K/mm3 (150-400); RDW Coefficient Variation 15.8 % (11.7-14.2); RDW Standard Deviation 47.3 fL (35.1-46.3); Red Blood Cell Count 2.94 M/mm3 (4.30-5.90); White Blood Cell Count 6.86 K/mm3 (4.00-11.30)
--- NOTE | 2018-08-15 05:54 | NUR ---
*SHIFT SUMMARY* PATIENT WELL PATIENT'S SON CALLED VERY FREQUENTLY ASKING STAFF FOR MORE PAIN MEDICATIONS. PATIENT AND FAMILY HAD BEEN INFORMED AND EDUCATED ON THE PAIN MEDICATION SCHEDULE. PATIENT WAS OFFERED TO BE REPOSITIONED FREQUENTLY TO RELIEVE PAIN. PATIENT WAS ALSO OFFERED NON-PHARMACOLOGICAL MEASURES SUCH HEAT/COLD THERAPY, AND DISTRACTION TECHNIQUES. PATIENT DENIED ANY OF THESE. PATIENT FELL ASLEEP AROUND [id number] AND SLEPT UNTIL 0430 IN RECLINER WITH FEET NOT ELEVATED. PATIENT REQUESTED PAIN MEDICATIONS AND WAS MEDICATED ORDERED. RESPIRATIONS ARE EQUAL AND UNLABORED. VITAL SIGNS ARE WNL EXCEPT FOR AN ELEVATED HR THIS AM, PATIENT STATES THIS IS HIS NORMAL. DRESSINGS TO BLE WERE CHANGED NEAR BEGINING OF SHIFT BY EZEQUIEL ZAVALA. CALL LIGHT WITHIN REACH,
[2018-08-15 06:11] LABS: Bun/Creatinine Ratio 33.6 (12.0-20.0); Calcium, Blood 8.9 mg/dL (8.5-10.1); Creatinine, Blood 1.37 mg/dL (0.60-1.20); Potassium, Blood 3.5 mmol/L (3.5-5.5)
--- NOTE | 2018-08-15 19:10 | NUR ---
SHIFT SUMMARY PT STANDS TO URINATE WITH SONS HELP. DRESSINGS CHANGED TO BOTH LEGS THIS MORNING AND R LEG AGAIN THIS AFTERNOON. DR. COELHO IN TO SEE PT THIS EVENING AND ORDERED TEST FOR LEGS WITH POSSIBILITY TO HAVE PROCEDURE AFTER IF NEEDED. SON AT BEDSIDE MOST OF DAY. MEDICATED FOR PAIN REGULARLY AND REPORTS PAIN HAS BEEN CONTROLLED TODAY ACCEPTABLY. REFUSES TO LAY IN BED OR ELEVATE FEET DUE TO INCREASED PAIN.
--- NOTE | 2018-08-16 04:27 | NUR ---
VSS, AFEBRILE, A/O, SON ROOMING IN WITH PT, BILATE LE WEEPING CELLULITIS, BANDAGES CHANGED ON THIS SHIFT BECAUSE THEY WWERE SOAKED WITH SEROUS FLUID. NPO AFTER 0200 FOR POSSIBLE PROCEDURE TODAY, SLEEPS IN CHAIR, SLEPT WELL, NORCO PRN PAIN
[2018-08-16 06:08] LABS: Bun/Creatinine Ratio 31.7 (12.0-20.0); Calcium, Blood 8.7 mg/dL (8.5-10.1); Creatinine, Blood 1.64 mg/dL (0.60-1.20); Potassium, Blood 3.5 mmol/L (3.5-5.5)
--- NOTE | 2018-08-16 11:00 | NUR ---
THIS NURSE, DR DAVE, LUAN ESTRADA, PINSETTER MECHANIC HELPER, & EDSON JAQUEZ, U/S TECH IN ROOM FROM [facility] FOR SCLEROTHERAPY TO PT LLE. CONTINOUS HEART MONITOR IN PLACE. VSS. NADN. PT LEFT LOWER LEG UNWRAPPED FROM [place]AN FOR PROCEDURE. SEE SEDATION SHEET.
--- NOTE | 2018-08-16 11:29 | NUR ---
Pt. is sitting in a c hair resting ,he reports of some improvement encouraged pt. and prayed for him.
--- NOTE | 2018-08-16 11:50 | NUR ---
PT TOLERATED SCLEROTHERAPY TO LLE BY DR COELHO WELL. VSS. NADN. PT RESTING COMFORTABLY. DENIES PAIN OR NEEDS. CALL LIGHT WITHIN REACH. REPORT GIVEN TO EZEQUIEL HEDRICK TO ASSUME CARE.
--- NOTE | 2018-08-16 18:21 | NUR ---
D/C INSTRUCTIONS PROVIDED AND EXPLAINED. IV REMOVED. PT D/C VIA WHEELCHAIR WITH SON IN [facility] AT 1621.
== END 2018-08-16 18:21 | disposition home or self-care (01) ==
LOC: ER 12:54 → ERHOLD 12:55 → MEDS 12:55 → ENPENDDIS 08-16 13:00 → MEDS 08-16 18:21
PROVIDERS: Physician Assistant; ADMIT Hospitalist
DX: I87.2 Venous insufficiency (chronic) (peripheral) (principal); E11.622 Type 2 diabetes mellitus with other skin ulcer; L97.829 Non-pressure chronic ulcer of other part of left lower leg with unspecified severity; E11.40 Type 2 diabetes mellitus with diabetic neuropathy, unspecified; I12.9 Hypertensive chronic kidney disease with stage 1 through stage 4 chronic kidney disease, or unspecified chronic kidney disease; E11.22 Type 2 diabetes mellitus with diabetic chronic kidney disease; N18.3 Chronic kidney disease, stage 3 (moderate); I48.2 Chronic atrial fibrillation; E87.1 Hypo-osmolality and hyponatremia; E78.5 Hyperlipidemia, unspecified; G47.30 Sleep apnea, unspecified; M19.90 Unspecified osteoarthritis, unspecified site; K21.9 Gastro-esophageal reflux disease without esophagitis; F32.9 Major depressive disorder, single episode, unspecified; E66.01 Morbid (severe) obesity due to excess calories; Z88.0 Allergy status to penicillin; Z91.018 Allergy to other foods; Z79.899 Other long term (current) drug therapy; Z79.02 Long term (current) use of antithrombotics/antiplatelets; Z79.84 Long term (current) use of oral hypoglycemic drugs
CPT/HCPCS: 36415; 36470; 36471; 80048; 80053; 83605; 84145; 85025; 93970; 94640; 94664; 94667; 94760; 96361; 96365; 96366; 96375; 96376; 98960; 99284-25; G0378; J0690; J1940; J2250; J3010; J7040; J7050; J7120

== ENCOUNTER 2018-08-26 21:01 | Emergency (ER) | payer MEDICARE ==
[~2018-08-26] VITALS: Ht 182.9 cm; Wt 122.5 kg
[~2018-08-26 21:01] MED LIST changes: +VICODIN HP 10-1 EACH PO
[2018-08-26] MEDS ORDERED: CEPH500 (21:18)
[2018-08-26 21:52] LABS: BASOPHILS ABSOLUTE AUTO 0.02 K/mm3 (0.00-0.23); BASOPHILS PERCENT AUTO 0 % (0-2); EOSINOPHILS ABSOLUTE AUTO 0.41 K/mm3 (0.00-0.68); EOSINOPHILS PERCENT AUTO 5 % (0-6); Hematocrit 23.8 % (37.0-53.0); Hemoglobin 7.5 g/dL (13.5-17.5); IMMATURE GRAN ABSOLUTE AUTO 0.11 K/mm3 (0.00-0.10); IMMATURE GRAN PERCENT AUTO 1 % (0-1); LYMPHOCYTES ABSOLUTE AUTO 1.08 K/mm3 (0.84-5.20); LYMPHOCYTES PERCENT AUTO 12 % (21-46); MONOCYTES ABSOLUTE AUTO 1.18 K/mm3 (0.16-1.47); MONOCYTES PERCENT AUTO 13 % (4-13); Mean Corpuscular HGB 26.1 pg (26.0-34.0); Mean Corpuscular HGB Conc 31.5 g/dL (31.5-36.5); Mean Corpuscular Volume 83 fL (80-100); Mean Platelet Volume 8.6 fL (9.1-12.4); NEUTROPHILS ABSOLUTE AUTO 6.08 K/mm3 (1.96-9.15); NEUTROPHILS PERCENT AUTO 69 % (41-73); Platelet Count 308 K/mm3 (150-400); RDW Coefficient Variation 16.3 % (11.7-14.2); RDW Standard Deviation 49.9 fL (35.1-46.3); Red Blood Cell Count 2.87 M/mm3 (4.30-5.90); White Blood Cell Count 8.88 K/mm3 (4.00-11.30)
[2018-08-26 22:09] LABS: Albumin, Blood 2.8 g/dL (3.4-5.0); Albumin/Globulin Ratio 0.6 (0.8-1.8); Bilirubin, Total 0.6 mg/dL (0.1-1.0); Bun/Creatinine Ratio 31.3 (12.0-20.0); Calcium, Blood 8.6 mg/dL (8.5-10.1); Creatinine, Blood 2.49 mg/dL (0.60-1.20); Globulin, Blood 4.7 g/dL (2.2-4.0); Potassium, Blood 4.6 mmol/L (3.5-5.5); Total Protein, Blood 7.5 g/dL (6.4-8.2)
== END 2018-08-26 23:40 | disposition home or self-care (01) ==
LOC: ER 21:01
PROVIDERS: Emergency Medicine
DX: E86.0 Dehydration (principal); I12.9 Hypertensive chronic kidney disease with stage 1 through stage 4 chronic kidney disease, or unspecified chronic kidney disease; E11.22 Type 2 diabetes mellitus with diabetic chronic kidney disease; N18.9 Chronic kidney disease, unspecified; Z88.0 Allergy status to penicillin; Z91.018 Allergy to other foods; Z79.899 Other long term (current) drug therapy; Z79.891 Long term (current) use of opiate analgesic; I48.91 Unspecified atrial fibrillation
CPT/HCPCS: 71046; 80053; 85025; 93005; 93010; 96361; 96374; 96375; 99285-25; J2405; J3010; J7030

== ENCOUNTER 2018-08-31 18:04 | Inpatient (IN) | payer MEDICARE ==
[~2018-08-31] VITALS: Ht 182.9 cm; Wt 113.1 kg
[2018-08-31 18:57] LABS: BASOPHILS ABSOLUTE AUTO 0.06 K/mm3 (0.00-0.23); BASOPHILS PERCENT AUTO 1 % (0-2); EOSINOPHILS ABSOLUTE AUTO 0.52 K/mm3 (0.00-0.68); EOSINOPHILS PERCENT AUTO 7 % (0-6); Hematocrit 23.9 % (37.0-53.0); Hemoglobin 7.6 g/dL (13.5-17.5); IMMATURE GRAN ABSOLUTE AUTO 0.38 K/mm3 (0.00-0.10); IMMATURE GRAN PERCENT AUTO 5 % (0-1); LYMPHOCYTES ABSOLUTE AUTO 1.38 K/mm3 (0.84-5.20); LYMPHOCYTES PERCENT AUTO 17 % (21-46); MONOCYTES ABSOLUTE AUTO 0.95 K/mm3 (0.16-1.47); MONOCYTES PERCENT AUTO 12 % (4-13); Mean Corpuscular HGB 26.3 pg (26.0-34.0); Mean Corpuscular HGB Conc 31.8 g/dL (31.5-36.5); Mean Corpuscular Volume 83 fL (80-100); NEUTROPHILS ABSOLUTE AUTO 4.69 K/mm3 (1.96-9.15); NEUTROPHILS PERCENT AUTO 59 % (41-73); Platelet Count 340 K/mm3 (150-400); RDW Coefficient Variation 16.2 % (11.7-14.2); RDW Standard Deviation 49.1 fL (35.1-46.3); Red Blood Cell Count 2.89 M/mm3 (4.30-5.90); White Blood Cell Count 7.98 K/mm3 (4.00-11.30)
[2018-08-31 19:19] LABS: Albumin, Blood 2.8 g/dL (3.4-5.0); Albumin/Globulin Ratio 0.6 (0.8-1.8); Bilirubin, Total 0.6 mg/dL (0.1-1.0); Bun/Creatinine Ratio 39.3 (12.0-20.0); Calcium, Blood 9.2 mg/dL (8.5-10.1); Creatinine, Blood 1.68 mg/dL (0.60-1.20); Globulin, Blood 4.8 g/dL (2.2-4.0); Potassium, Blood 4.3 mmol/L (3.5-5.5); Total Protein, Blood 7.6 g/dL (6.4-8.2)
[2018-08-31] MEDS ORDERED: PIOG45 PO (21:12)
[2018-08-31] MEDS ORDERED: METO5 PO (21:13)
[2018-08-31] MEDS ORDERED: LORA2 PO (21:13)
[2018-08-31] MEDS ORDERED: LOSA50 PO (21:13)
[2018-08-31] MEDS ORDERED: Norco 10-325 T1 EACH PO (21:14)
[2018-08-31] MEDS ORDERED: GABA300 PO (21:14)
[2018-08-31] MEDS ORDERED: BENADRYL25 MG PO (23:52)
[2018-09-01 02:33] LABS: Source, Urine Clean Catch
[2018-09-01 02:35] LABS: Bilirubin, Urine Neg (Neg); Blood, Urine Neg (Neg); Glucose Qualitative, Urine Neg (Neg); Ketones, Urine Neg (Neg); Leukocyte Esterase, Urine Neg (Neg); Nitrite, Urine Neg (Neg); Protein, Urine Neg (Neg); Urobilinogen, Urine NORM (Normal)
[2018-09-01 02:36] LABS: Appearance, Urine Clear (Clear); Color, Urine Yellow (P-Yellow)
[2018-09-01 05:26] LABS: Hematocrit 24.6 % (37.0-53.0); Hemoglobin 7.8 g/dL (13.5-17.5); Mean Corpuscular HGB 25.9 pg (26.0-34.0); Mean Corpuscular HGB Conc 31.7 g/dL (31.5-36.5); Mean Corpuscular Volume 82 fL (80-100); Mean Platelet Volume 8.5 fL (9.1-12.4); Platelet Count 326 K/mm3 (150-400); RDW Coefficient Variation 16.7 % (11.7-14.2); RDW Standard Deviation 49.3 fL (35.1-46.3); Red Blood Cell Count 3.01 M/mm3 (4.30-5.90); White Blood Cell Count 9.04 K/mm3 (4.00-11.30)
[2018-09-01 05:51] LABS: Albumin, Blood 2.7 g/dL (3.4-5.0); Albumin/Globulin Ratio 0.6 (0.8-1.8); Bilirubin, Total 0.9 mg/dL (0.1-1.0); Creatinine, Blood 1.54 mg/dL (0.60-1.20); Globulin, Blood 4.6 g/dL (2.2-4.0); Potassium, Blood 4.4 mmol/L (3.5-5.5); Total Protein, Blood 7.3 g/dL (6.4-8.2)
--- NOTE | 2018-09-01 07:23 | NUR ---
SHIFT SUMMARY PT AWAKE MOST OF NIGHT, HAS SLEPT ROUGHLY 1-2 HRS. AOX4. VSS. DENIES N/V. FREQUENTLY REPORTS 9/10 PAIN IN BLE, MEDICATED 2X W/NORCO & 1X W/50MCG FENTANYL PER ORDERS. PT REPORTS SOB & BREATHING TX GIVEN BY RT PER ORDERS, PT ON 3L O2 VIA NC, LUNGS SOUND DIMINISHED T/O. BLE ARE RED, WEEPING, PEELING & HAVE +2 EDEMA, CURRENTLY WOUNDS ARE OPEN TO AIR & HAVE A MODERATE AMOUNT SEROUS DRAINAGE. PT HAS STAGE 2 PRESSURE ULCER UPON ADMISSION ON GLUTEAL CLEFT/LEFT BUTTOCKS, MEPILEX PLACED. PT RECIEVED 1U OF BLOOD IN ER LAST NIGHT & DR. AZUL ASKED FOR 2ND UNIT TO BE HELD. PT INDEPENDENTLY USES URINAL. CALL LIGHT IN REACH & SON @BEDSIDE.
[2018-09-01 10:28] LABS: IMMATURE RETIC FRACTION 26.2 % (2.3-16.0); RETIC HGB EQUIVALENT 29.7 pg (28.20-36.60); RETICULOCYTE ABSOLUTE 0.0538 M/mm3 (0.0200-0.1100); RETICULOCYTE COUNT PERCENT 1.78 % (0.50-2.50)
--- NOTE | 2018-09-01 14:53 | NUR ---
PATIENT REPORTING PAIN AND NAUSEA AT THIS TIME. PATIENT HAS BEEN MEDICATED WITH PAIN MEDICATION AND NAUSEA MEDICATION. STATES HE JUST ISN'T FEELING RIGHT. HE FEELS WEAK AND TIRED. NO ACUTE CONCERNS MINUS THE PATIENT'S FEELINGS OF WEAKNESS. HE DID GET UP TO THE COMMODE TODAY WELL.
--- NOTE | 2018-09-01 19:12 | NUR ---
SHIFT SUMMARY PATIENT PLEASANT AT THIS POINT. STILL COMPLAINING OF PAIN Q4. HYDROCODONE ON BOARD. NO OTHER ACUTE CONCERNS.
[2018-09-02 05:19] LABS: BASOPHILS ABSOLUTE AUTO 0.05 K/mm3 (0.00-0.23); BASOPHILS PERCENT AUTO 1 % (0-2); EOSINOPHILS ABSOLUTE AUTO 0.61 K/mm3 (0.00-0.68); EOSINOPHILS PERCENT AUTO 7 % (0-6); Hematocrit 25.3 % (37.0-53.0); Hemoglobin 7.9 g/dL (13.5-17.5); IMMATURE GRAN ABSOLUTE AUTO 0.37 K/mm3 (0.00-0.10); IMMATURE GRAN PERCENT AUTO 4 % (0-1); LYMPHOCYTES ABSOLUTE AUTO 1.41 K/mm3 (0.84-5.20); LYMPHOCYTES PERCENT AUTO 15 % (21-46); MONOCYTES ABSOLUTE AUTO 1.13 K/mm3 (0.16-1.47); MONOCYTES PERCENT AUTO 12 % (4-13); Mean Corpuscular HGB 26.6 pg (26.0-34.0); Mean Corpuscular HGB Conc 31.2 g/dL (31.5-36.5); Mean Platelet Volume 8.5 fL (9.1-12.4); NEUTROPHILS ABSOLUTE AUTO 5.72 K/mm3 (1.96-9.15); NEUTROPHILS PERCENT AUTO 62 % (41-73); Platelet Count 317 K/mm3 (150-400); RDW Coefficient Variation 16.8 % (11.7-14.2); RDW Standard Deviation 51.7 fL (35.1-46.3); Red Blood Cell Count 2.97 M/mm3 (4.30-5.90); White Blood Cell Count 9.29 K/mm3 (4.00-11.30)
[2018-09-02 05:28] LABS: Mean Corpuscular Volume 85 fL (80-100)
[2018-09-02 05:39] LABS: Bun/Creatinine Ratio 41.1 (12.0-20.0); Calcium, Blood 8.5 mg/dL (8.5-10.1); Creatinine, Blood 1.51 mg/dL (0.60-1.20); Potassium, Blood 4.7 mmol/L (3.5-5.5)
--- NOTE | 2018-09-02 06:57 | NUR ---
SHIFT SUMMARY PT WAS AWAKE T/O NIGHT & JUST FELL ASLEEP THIS AM AROUND 0500. VSS. DENIES SOB OR N/V. REPORTS 8-9/10 PAIN IN BLE, MEDICATED 3X W/NORCO & 2X W/50MCG FENTANYL PER ORDERS & WHEN REASSESSED PT STILL REPORTED 8-9/10 PAIN & STATED THE PAIN MEDICATION WAS NOT TOUCHING HIS PAIN LEVEL. NOTIFIED DR. AZUL & HE ORDERED 1MG DILAUDID & CHANGED HIS GABAPENTIN ORDER TO BID, SINCE ADMINISTRATION OF THESE MEDICATIONS PT HAS BEEN RESTING COMFORTABLY. BLE WOUNDS ARE OPEN TO AIR, RED, WEEPING, PEELING & HAVE +2 PITTING EDEMA. MEPILEX ON GLUTEAL CLEFT/LEFT BUTTOCKS PRESSURE SORE WAS CHANED LAST NIGHT. CALL LIGHT IS IN REACH & PT USES IT FREQUENTLY. I WILL CONT TO MONITOR PT.
[2018-09-02] MEDS ORDERED: FERSU90EL PO (13:12)
[2018-09-02] MEDS ORDERED: ROXICODONE5 MG PO (13:12)
--- NOTE | 2018-09-02 17:33 | NUR ---
SHIFT SUMMARY PATIENT DISCHARGED. AWAITING FAMILY FOR HIS RIDE HOME. ASSESSED TIME FOR DISCHARGE 1800.
== END 2018-09-02 19:17 | disposition home health service (06) | DRG 812 ==
LOC: ER 18:04 → MEDS 18:05 → ENPENDDIS 09-02 12:40 → MEDS 09-02 19:17
PROVIDERS: Hospitalist; Physician Assistant; ADMIT Internal Medicine
PROC: 30233N1 Transfusion of Nonautologous Red Blood Cells into Peripheral Vein, Percutaneous Approach (ICD-10-PCS; principal; 2018-08-31)
DX: D50.9 Iron deficiency anemia, unspecified (principal); I50.30 Unspecified diastolic (congestive) heart failure; E87.1 Hypo-osmolality and hyponatremia; Z99.81 Dependence on supplemental oxygen; E11.40 Type 2 diabetes mellitus with diabetic neuropathy, unspecified; E78.5 Hyperlipidemia, unspecified; I48.2 Chronic atrial fibrillation; I07.1 Rheumatic tricuspid insufficiency; E86.0 Dehydration; Z68.33 Body mass index [BMI] 33.0-33.9, adult; E66.9 Obesity, unspecified; I87.2 Venous insufficiency (chronic) (peripheral); G47.33 Obstructive sleep apnea (adult) (pediatric); K21.9 Gastro-esophageal reflux disease without esophagitis; M19.90 Unspecified osteoarthritis, unspecified site; I95.9 Hypotension, unspecified; Z79.84 Long term (current) use of oral hypoglycemic drugs; Z79.891 Long term (current) use of opiate analgesic; I11.0 Hypertensive heart disease with heart failure
CPT/HCPCS: 36415; 36430; 71046; 80048; 80053; 81003; 82272; 82947; 85025; 85027; 85045; 86850; 86900; 86901; 86923; 93005; 93010; 94640; 94760; 96360; 97116; 97161; 99285-25; J1170; J1750; J2405; J3010; J7030; P9016

== ENCOUNTER 2018-09-06 01:22 | Inpatient (IN) | payer MEDICARE ==
[~2018-09-06] VITALS: Ht 182.9 cm; Wt 123.3 kg
[~2018-09-06 01:22] MED LIST changes: +BENADRYL25 MG PO; +FERSU90EL PO; +METO5 PO; +Norco 10-325 T1 EACH PO; +ROXICODONE5 MG PO
[2018-09-06 02:13] LABS: BASOPHILS ABSOLUTE AUTO 0.08 K/mm3 (0.00-0.23); BASOPHILS PERCENT AUTO 1 % (0-2); EOSINOPHILS ABSOLUTE AUTO 0.45 K/mm3 (0.00-0.68); EOSINOPHILS PERCENT AUTO 4 % (0-6); Hematocrit 24.3 % (37.0-53.0); Hemoglobin 7.7 g/dL (13.5-17.5); IMMATURE GRAN ABSOLUTE AUTO 0.58 K/mm3 (0.00-0.10); IMMATURE GRAN PERCENT AUTO 5 % (0-1); LYMPHOCYTES ABSOLUTE AUTO 1.74 K/mm3 (0.84-5.20); LYMPHOCYTES PERCENT AUTO 14 % (21-46); MONOCYTES ABSOLUTE AUTO 1.55 K/mm3 (0.16-1.47); MONOCYTES PERCENT AUTO 12 % (4-13); Mean Corpuscular HGB 26.6 pg (26.0-34.0); Mean Corpuscular HGB Conc 31.7 g/dL (31.5-36.5); Mean Corpuscular Volume 84 fL (80-100); Mean Platelet Volume 8.9 fL (9.1-12.4); NEUTROPHILS ABSOLUTE AUTO 8.43 K/mm3 (1.96-9.15); NEUTROPHILS PERCENT AUTO 66 % (41-73); NRBC ABSOLUTE 0.02 K/mm3 (0.00-0.02); NRBC Auto 0.2 /100 WBC (0.0-0.2); Platelet Count 345 K/mm3 (150-400); RDW Standard Deviation 51.8 fL (35.1-46.3); White Blood Cell Count 12.83 K/mm3 (4.00-11.30)
[2018-09-06 02:24] LABS: International Normalized Ratio 1.3; Prothrombin Time Results 13.5 Sec (9.7-11.5)
[2018-09-06 02:25] LABS: Calcium, Ionized (POC) 0.95 mmol/L (1.10-1.46); Chloride (POC) 93 mmol/L (98-108); Creatinine (POC) 3.1 mg/dL (0.8-1.3); Glucose (ISTAT POC) 122 mg/dL (70-99); Hemoglobin (POC) 7.5 g/dL (13.5-17.5); Potassium (POC) 5.9 mmol/L (3.5-5.5); Sodium (POC) 120 mmol/L (135-148); Total CO2 (POC) 16 mmol/L (21-32)
[2018-09-06 02:31] LABS: Alanine Aminotransfer (ALT/SGP 100 U/L (12-78); Albumin, Blood 2.4 g/dL (3.4-5.0); Albumin/Globulin Ratio 0.6 (0.8-1.8); Alk Phos 171 U/L (50-136); Anion Gap 13 mmol/L (6-16); Aspartate Aminotrans (AST/SGOT 146 U/L (12-37); Bilirubin, Total 0.7 mg/dL (0.1-1.0); Blood Urea Nitrogen 80 mg/dL (8-24); Bun/Creatinine Ratio 31.4 (12.0-20.0); CO2, Blood 18 mmol/L (21-32); Calcium, Blood 7.9 mg/dL (8.5-10.1); Chloride, Blood 92 mmol/L (98-108); Creatinine, Blood 2.55 mg/dL (0.60-1.20); Globulin, Blood 4.3 g/dL (2.2-4.0); Glomerular Filtration Rate 26 (60-); Glucose, Blood 120 mg/dL (70-99); Potassium, Blood 5.9 mmol/L (3.5-5.5); Sodium, Blood 123 mmol/L (136-145); Total Protein, Blood 6.7 g/dL (6.4-8.2); Troponin I <0.015 ng/mL (0.000-0.040)
[2018-09-06 02:43] LABS: Source, Urine Catheter
[2018-09-06 02:45] LABS: Bilirubin, Urine Neg (Neg); Blood, Urine Neg (Neg); Glucose Qualitative, Urine Neg (Neg); Ketones, Urine Neg (Neg); Leukocyte Esterase, Urine Neg (Neg); Nitrite, Urine Neg (Neg); Protein, Urine 1+ (Neg); Urobilinogen, Urine NORM (Normal)
[2018-09-06 02:47] LABS: Appearance, Urine Clear (Clear); Color, Urine Yellow (P-Yellow)
[2018-09-06 10:59] LABS: U Amphetamine Screen Not Detected; U Barbituate Screen Not Detected; U Benzodiazapine Screen DETECTED; U Methamphetamine Screen Not Detected
[2018-09-06 11:00] LABS: U Buprenorphine Screen Not Detected; U Cannabinoids Screen Not Detected; U Cocaine Screen Not Detected; U Methadone Screen Not Detected; U Opiates Screen DETECTED; U Oxycodone Screen DETECTED; U Phencyclidine Screen Not Detected; U Propoxyphene Screen Not Detected
--- NOTE | 2018-09-06 11:21 | NUR ---
PT ADMITTED TO ICU 5 AT 0750 FOR ACUTE RENAL FAILURE POSSIBLY D/T DEHYDRATION. PT AWAKE, ORINETED TO SELF AND PLACE ONLY. PT WRITHING IN PAIN, 10/ TO LEGS BILAT. PT ON 3L 02 VIA N/C, SATS 96-99%. CRACKLES/RHONCHI TO LEFT SIDE, CLEAR BUT DIMINISHED TO RIGHT SIDE. PT LOOKS SOMEWHAT SOB WITH EXERTION BUT STABLE ( PT IS WRITHING SEVERLY). ABD FIRM DISTENDED, NON-TENDER, W HYPERATIVE BT'S. PT ABLE TO TAKE PO MEDS. PO XANAX GIVEN FOR EXTREME ANXIETY. BP LABILE; FROM NORMAL TO HYPOTENSIVE W MAP >65. PT NSR TO TACHY DEPENDING ON INCREASED MOVEMENT AND AGITATION. VERY LITTLE CLOUDY PINK URINE W SEDIMENT TO PARKINSON. SAMPLE SENT TO LAB. 2ND UNIT OF [facility]'S CONFIRMED AND STARTED PER DR SOTO. DR SOTO IN AT 0830 TO SEE PT. DILAUDID 1MG IVP X 1 GIVEN FOR PAIN 03/28. PT CONT TO WRITHE AN HOUR AFTER PAIN MED. PO MEDS; IVÁN. AND XANAX APPEARED TO HELP SOMEWHAT. PT SLIGHTLY MORE CONFUSED THAN ON ADMIT. BLOOD SUGAR 54, WITH INCREASED SEDATION D50 25ML PUSHED. BS 77 15MIN LATER. BED LINEN CHANGED. EXTENSIVE EXCORIATION TO LEGS BILATERALLY FROM PT'S CONSTANT RUBBING OF LEGS ON BED AND CHAIR AT HOME PER FAMILY. PT CONT TO VIGOROUSLY RUB CALVES/LEGS ON BED. PT C/O ITCHING WELL PAIN. LEGS WEEPING, BLOOD ON SHEETS. LINED CHANGED, UNNA BOOTS PLACED ON PT'S LEGS BILAT. MULTIPLE SCRATCHES ALL OVER PT'S BODY IN VARIOUS STAGES OF HEALING, PT STATES HE SCRATCHES HIMSELF, FAMILY CONFIRMS THIS. STAGE 2 DECUB ULCER FOUND ON PT'S RIGHT BUTTOCK NEAR GLUTEAL FOLD, CRACKING/OPEN SKIN FOUND AT GLUTEAL FOLD WELL. MEPIPLEX PLACED. SEE PICTURES.
--- NOTE | 2018-09-06 11:38 | NUR ---
DR SOTO GIVEN A FULL UPDATE
--- NOTE | 2018-09-06 13:01 | NUR ---
TRANSFUSION COMPLETE. CRACKLES REMAIN UNCHANGED. SLIGHT EXP WHEEZE TO RUL. SATS 96% ON 3L. PT RESP EVEN UNLABORED. VSS. LABS TO BE DRAWN. MRSA SWAB OF THROAT AND NARES SENT TO BE CLEARED
[2018-09-06 13:21] LABS: Hemoglobin 9.3 g/dL (13.5-17.5); Mean Corpuscular HGB Conc 33.2 g/dL (31.5-36.5); Mean Corpuscular Volume 84 fL (80-100); Mean Platelet Volume 8.8 fL (9.1-12.4); NRBC ABSOLUTE 0.04 K/mm3 (0.00-0.02); NRBC Auto 0.1 /100 WBC (0.0-0.2); Platelet Count 314 K/mm3 (150-400); RDW Coefficient Variation 17.7 % (11.7-14.2); RDW Standard Deviation 52.6 fL (35.1-46.3); Red Blood Cell Count 3.32 M/mm3 (4.30-5.90); White Blood Cell Count 27.64 K/mm3 (4.00-11.30)
[2018-09-06 13:57] LABS: Albumin, Blood 2.4 g/dL (3.4-5.0); Albumin/Globulin Ratio 0.6 (0.8-1.8); Bilirubin, Total 2.3 mg/dL (0.1-1.0); Bun/Creatinine Ratio 30.6 (12.0-20.0); Calcium, Blood 8.1 mg/dL (8.5-10.1); Creatinine, Blood 2.58 mg/dL (0.60-1.20); Globulin, Blood 4.1 g/dL (2.2-4.0); Potassium, Blood 6.1 mmol/L (3.5-5.5); Total Protein, Blood 6.5 g/dL (6.4-8.2)
--- NOTE | 2018-09-06 14:18 | NUR ---
DR SOTO CALLED W CRITICAL LAB RESULTS. WILL WATCH K+ WITH REPEAT BNP AT 1800. NS INCREASED TO 150CC. PT REMAINS RESTLESS/WRITHING BUT LETHARGIC AND DROWSY. RESPONDS TO VOICE BUT CONFUSED, UNABLE TO KEEP AWAKE, CONFUSED. PT NOW ICU STATUS
--- NOTE | 2018-09-06 15:59 | NUR ---
DR SOTO IN TO SEE PT. NS INCREASED TO 200CC/HR FOR 1LITER
--- NOTE | 2018-09-06 17:03 | NUR ---
PT BS 59, 1/2AMP D50 GIVEN PER [address] SOTO. CHECK BS IN ONE HR, IF HYPOGLYCEMIC D5 1/2 NS WILL BE STARTED
--- NOTE | 2018-09-06 18:07 | NUR ---
PT AROUSES TO VOICE AND ANSWERS QUESTIONS, REMAINS SOMEWHAT CONFUSED. PT DID HAVE A SHORT VISIT WITH HIS FRUIT DRYER. BP TRENDING DOWN W MAPS 50'S. DR SOTO CALLED AND NOTIFIED. AWAITING LACTIC ACID RESULTS
[2018-09-06 19:06] LABS: Bun/Creatinine Ratio 30.6 (12.0-20.0); Calcium, Blood 8.1 mg/dL (8.5-10.1); Creatinine, Blood 2.55 mg/dL (0.60-1.20)
--- NOTE | 2018-09-06 19:15 | NUR ---
ASSUMED CARE REPORT AND ASSESSMENT COMPLETED. PT AWAKE, RESPONDS TO VOICE, AND ALERT TO SELF, FAMILY, LOCATION AND FOLLOWING DIRECTIONS BUT IS RESTLESS AND CONFUSED TO DATE. FAMILY INCLUDING , DAUGHTERS AND GRANDDAUGHTER IN ROOM EXPRESSING CONCERNS AND REPORT THEY ALL HELP CARE FOR PT AT HOME AND PT HAS HAD INCREASING/RAPID DECLINE IN HEALTH. BP IS LOW AND CONTINUES TO TREND DOWN, AM RN PLANS TO CALL DR SOTO TO UPDATE ON BP AT 1700 LABS. BG HAS BEEN LOW, PLAN TO RECHECK AND START D5 1/2 NS IF BG CONTINUES TO DROP. NS AT 200ML/HR NOW. ECG SHOWS AFIB 80-100, O2 SATS LOW 90'S ON 3L/NC.
--- NOTE | 2018-09-06 20:36 | NUR ---
DR SOTO CALLED TO REVIEW 1800 LAB RESULTS. REPORT GIVEN TO ELVIRA NIEVES. PT HYPOTENSIVE WITH MAP 50'S WHILE ON THE PHONE W DR SOTO. 1L NS BOLUS ORDERED AND STARTED. DEXAMETH. 4MG IV X 1 ORDERED. PICC LINE DISCUSSED. DOPAMINE MAY BE STARTED PERIPHERALLY IF NEEDED TO KEEP MAP >65 IF PT DOES NOT RESPOND TO BOLUS. PT IS LETHARGIC BUT IS AWAKE CONVERSING WITH FAMILY AT BEDSIDE. KAYEXALATE ORDERED FOR K+ OF 6.0. DR SOTO NOTIFIED OF GLUCOSE AND LACTIC ACID WELL. D5 1/2 NS AT 150CC STARTED. PODIATRY TO BE CONSULTED FOR PT'S LONG/SHARP TOENAILS. ECHO ORDERED WELL.
--- NOTE | 2018-09-06 21:51 | NUR ---
EVENTS UP TO THIS TIME PT HYPOTENSIVE AT START OF SHIFT, AM RN CALLED DAY SHIFT PRIMARY DR SOTO AND HAD ORDERS FOR KAYEXALATE, DECADRON, NS BOLUS AND DOPAMINE. ORDERS PLACED, CALL FROM PHARMACIST WHO REPORTED HE DISCUSSED KAYEXALATE WITH DR SOTO AND ORDERED TO HOLD FOR NOW AND THAT K+ NOT HIGH ENOUGH. DECADRON GIVEN, BP REMAINS LOW W/ MAP <60 AND SBP <80. CALL TO FAREED MEJIA AND OBTAINED ORDER FOR PICC PLACEMENT FOR PRESSORS. PEDRITO NIEVES HERE AND WILL PLACE.
[2018-09-06] MEDS ORDERED: SILVER SULFADIA50 G1 TOP (22:39)
[2018-09-06] MEDS ORDERED: Hydrocodone-Ap1 EA20 PO (22:53)
--- NOTE | 2018-09-06 23:36 | NUR ---
CALL TO RT O2 SATS SUSTAINING AT 87-88% DESPITE UPWARD TITRATION OF OXYGEN, CURRENTLY AT 5L/NC. BED CPT COMPLETED AND RT IN ROOM FOR UDN. IF O2 SATS DO NOT RESPOND, NT SUCTION PLANNED.
--- NOTE | 2018-09-07 02:06 | NUR ---
UPDATE PT CALLING OUT FOR "NURSE" AND REQUESTING JELLO AND SOMETHING FOR PAIN. PT'S MENTATION HAS IMPROVED SINCE START OF SHIFT. INITIALLY PT WAS ALERT BUT SLOW TO RESPOND. NOW, PT IS AWAKE AND ALERT TO ALL BUT DATE. WHEN ASKED, PT STATES HIS BREATING IS MUCH BETTER DESPITE PRODCUTIVE, WEAK MOIST SOUNDING COUGH. UOP HAS IMPROVED WITH A TOTAL OF 760ML SO FAR THIS SHIFT. DOPAMINE CONTINUES AT 4MCG/KG/MIN AND HAS BEEN TITRATED DOWN FROM 10.
[2018-09-07 04:03] LABS: BASOPHILS ABSOLUTE AUTO 0.03 K/mm3 (0.00-0.23); BASOPHILS PERCENT AUTO 0 % (0-2); EOSINOPHILS PERCENT AUTO 0 % (0-6); Hemoglobin 9.4 g/dL (13.5-17.5); IMMATURE GRAN ABSOLUTE AUTO 0.29 K/mm3 (0.00-0.10); IMMATURE GRAN PERCENT AUTO 1 % (0-1); LYMPHOCYTES ABSOLUTE AUTO 0.65 K/mm3 (0.84-5.20); LYMPHOCYTES PERCENT AUTO 3 % (21-46); MONOCYTES ABSOLUTE AUTO 0.95 K/mm3 (0.16-1.47); MONOCYTES PERCENT AUTO 4 % (4-13); Mean Corpuscular HGB Conc 32.4 g/dL (31.5-36.5); Mean Corpuscular Volume 83 fL (80-100); Mean Platelet Volume 8.9 fL (9.1-12.4); NEUTROPHILS ABSOLUTE AUTO 20.65 K/mm3 (1.96-9.15); NEUTROPHILS PERCENT AUTO 92 % (41-73); NRBC ABSOLUTE 0.03 K/mm3 (0.00-0.02); NRBC Auto 0.1 /100 WBC (0.0-0.2); Platelet Count 305 K/mm3 (150-400); RDW Coefficient Variation 17.9 % (11.7-14.2); RDW Standard Deviation 50.7 fL (35.1-46.3); Red Blood Cell Count 3.48 M/mm3 (4.30-5.90); White Blood Cell Count 22.57 K/mm3 (4.00-11.30)
[2018-09-07 04:21] LABS: Anion Gap 15 mmol/L (6-16); Blood Urea Nitrogen 77 mg/dL (8-24); Bun/Creatinine Ratio 38.9 (12.0-20.0); CO2, Blood 16 mmol/L (21-32); Chloride, Blood 97 mmol/L (98-108); Creatinine, Blood 1.98 mg/dL (0.60-1.20); Glomerular Filtration Rate 35 (60-); Glucose, Blood 157 mg/dL (70-99); Potassium, Blood 5.8 mmol/L (3.5-5.5); Sodium, Blood 128 mmol/L (136-145); Vancomycin, Random 15.2 ug/mL
--- NOTE | 2018-09-07 05:13 | NUR ---
CALL TO DR AZUL PT YELLING OUT IN PAIN, PREVIOUSLY GIVEN 1MG PO DILAUDID BUT DID NOT DO WELL WITH PO ADMINISTRATION D/T COUGH. WAITING FOR CALL BACK.
--- NOTE | 2018-09-07 06:26 | NUR ---
SHIFT SUMMARY SEE PREVIOUS NOTE FOR SHIFT. PT HAS NOT SLEPT FOR ENTIRE SHIFT, REMAINS ALERT TO ALL BUT DATE AND IS FORGETFUL. THIS AM, PT REPORTS FEELING BETTER AND WANTS TO GET UP OUT OF BED, EAT AND HAVE PAIN MEDICATIONS INCREASED. PT HAS BEEN EDUCATED FREQUENTLY TO WHY PO MEDICATIONS ARE NOT BEING GIVEN D/T SWALLOWING PROBLEMS AND AVOIDING SEDATING MEDICATIONS ALONG WITH PLAN FOR SPEECH EVAL TODAY. PT IS NOT HAPPY WITH THIS AND FREQUENTLY YELLS OUT. PT CONTINUES TO HAVE A FREQUENT COUGH BUT SWALLOWS SPUTUM. DOPAMINE REMAINS ON AT 3MCG/KG/MIN TITRATED DOWN FROM 10 AND D5 1/2 NS AT 100ML TO MAINTAIN BG'S D/T HYPOGLYCEMIA. ECG SHOWS AFIB 100-120'S AND O2 SATS MID 90'S ON 3L/NC. FENTANYL GIVEN PER ORDER BUT PT IS AGAIN YELLING OUT DEMANDING PAIN MEDICATIONS SO HE CAN BE "KNOCKED OUT." UNNA BOOTS REMAIN IN PLACE, PT HAS CONTINUOUSLY MOVED FOOT BACK AND FORTH REPORTING ITCHING. PLAN TO REPLACE UNNA BOOTS TODAY.
--- NOTE | 2018-09-07 07:30 | NUR ---
Recieved report from Veena NIEVES.Patient laying in bed yelling out for nurse and wanting pain meds. He is alert and able to communicate his needs. He is on 4L O2 gvia NC and sats 94%. He has PICC line in KIRSTEN dressing intact and site WNL's and is infusing Dopamine at 3 mcg/kg/min with systolics low 100's and D5 1/2 NS at 100ml/hr. He also has 20ga IV in left lower forearm, dresssining intact and site WNL's and currently infusing Vanco. He has FS 2o ga IV in LW and dressing intact and site WNL's and flushed and SL. He is in A-fib in the 100-130's. He has rutherford 14Fr. draining to gravity sarbjit colored urine. He has bilateral LE jorge alberto wraps and has restless leggs and rubs back and forth in bed.
--- NOTE | 2018-09-07 08:44 | NUR ---
Late entry note. Met with nursing to review pt care needs. Nallely Deluna spoke with a few times that day about pt care needs. Strategy at this time is to have her call pt and review change to code status or indroduce subject. Review of care Nurisng concerned daughters will not accept conversation about prognosis. Supportive strategy at this time is to start conversation about levels of care.
--- NOTE | 2018-09-07 09:40 | NUR ---
Dr Suh by to assess patient and no new orders , he took in glass of water to evaluate and states no large sips or he aspirates. Speech in room now evaluating, nectar by spoon and puree diet. I medicated for pain earlier and he was resting until the Dr came in and awoke him. Son at bedside Dopamine just decreased to 2 mcg/kg/min.
--- NOTE | 2018-09-07 09:45 | NUR ---
speech in to see patient. Brief review with nursing and physician. REview of recent events with grandson. historically pt has refused most care and that has been excalating. Will review symptoms with patient after speech recomendations for swallow.
--- NOTE | 2018-09-07 11:22 | NUR ---
Echocardiogram completed.
--- NOTE | 2018-09-07 11:30 | NUR ---
Patient has been resting since ECHO. No significant changes and has not asked for pain meds. Son continues to be at bedside.
--- NOTE | 2018-09-07 11:33 | NUR ---
Called in consult to DR Willson and will be in later to evaluate. Turned Dopamine down to 2 mcg/kg/min and had to turn back up to three after giving some pain medication. He is still up in chair and will be getting lunch soon. He continue in a-fib low 100's and systolic 97-131. He remains on 4L O2 and sats low to mid 90%'s
--- NOTE | 2018-09-07 15:30 | NUR ---
Patient has no significant changes except i decreased Dopamine back to 2mcg/kg/min for systolic 131. Son has gone home and he is resting quietly
--- NOTE | 2018-09-07 17:13 | NUR ---
Dr Merrill has been by and stated that have patient follow up out patient and have wound care eval bailateral LE's. He continues on 2 mcg/kg/min and systolic low 100's. I placed him back in bed just prior to Dr merrill assessing him. He remains on 4 L O2 and sats low 90%'s. D5 1/2 NS continues at 100ml/hr. He remains in A-Fib.
--- NOTE | 2018-09-07 20:00 | NUR ---
ASSUMED CARE OF PT AT 1915. REPORT RECEIVED. PT PRESENTS IN BED ASLEEP. ON DOPAMINE AT 2MCG/KG/MIN. SBP 110'S. DECREASED DRIP TO 1 MCG/KG/MIN. ALSO PT HAS HIS OXYGEN TUBE OFF AND CANNULA IS RESTING ON HIS CHEEK. OF NOTE, PT'S SATURATIONS ARE > 90 PERCENT. WILL OBSERVE PT AND IF HIS OXYGEN SATURATIONS REMAIN ADEQUATE WILL REMOVE O2 CANNULA. WILL REVIEW CHART AND PLAN OF CARE FOR THIS PT.
--- NOTE | 2018-09-07 22:21 | NUR ---
HAVE BEEN ABLE TO DECREASE DOPAMINE DOWN TO 1MCG/MCG/MIN. PT MAINTAINING MAP > 60 AT THIS TIME. DOES HAVE OCCASSIONAL LOWER READING SECONDARY TO PT RAISING HIS BLOOD PRESSURE ARM UP HIGHER THAN HEART AT TIMES. PT WAS ABLE TO TAKE PO MEDS WITH APPLESAUCE AND WITH NECTAR THICK FLUIDS. PT HAD HIS NASAL CANNULA ON HIS CHEEK AND NOT IN NARES UPON TAKING OVER CARE AT 1915. HAVE JUST MONITORED HIS OXYGEN SATURATIONS DURING THIS TIME. HAS MAINTAINED > 93 PERCENT SATURATIONS ON ROOM AIR. HAVE REMOVED NASAL CANNULA. WILL CONTINUE TO MONITOR FOR ABILITY TO TITRATE DOPAMINE TO OFF.
--- NOTE | 2018-09-08 00:56 | NUR ---
PT'S GRANDDAUGHTER AND FRIEND COME IN TO SEE PT. PT ASSISTS SOME IN TURNS. DENIES COMPLAINTS OF PAIN OR DISTRESS. IS ABLE TO STATE HE WOULD LIKE MORE BLANKETS. THIS PROVIDED. WILL CONTINUE TO MONITOR PT.
[2018-09-08 04:05] LABS: BASOPHILS ABSOLUTE AUTO 0.01 K/mm3 (0.00-0.23); BASOPHILS PERCENT AUTO 0 % (0-2); EOSINOPHILS PERCENT AUTO 0 % (0-6); Hemoglobin 9.1 g/dL (13.5-17.5); IMMATURE GRAN ABSOLUTE AUTO 0.27 K/mm3 (0.00-0.10); IMMATURE GRAN PERCENT AUTO 2 % (0-1); LYMPHOCYTES PERCENT AUTO 5 % (21-46); MONOCYTES ABSOLUTE AUTO 1.28 K/mm3 (0.16-1.47); MONOCYTES PERCENT AUTO 9 % (4-13); Mean Corpuscular HGB 27.7 pg (26.0-34.0); Mean Corpuscular HGB Conc 32.5 g/dL (31.5-36.5); Mean Corpuscular Volume 85 fL (80-100); Mean Platelet Volume 8.8 fL (9.1-12.4); NEUTROPHILS ABSOLUTE AUTO 12.42 K/mm3 (1.96-9.15); NEUTROPHILS PERCENT AUTO 85 % (41-73); NRBC ABSOLUTE 0.02 K/mm3 (0.00-0.02); NRBC Auto 0.1 /100 WBC (0.0-0.2); Platelet Count 272 K/mm3 (150-400); RDW Coefficient Variation 18.3 % (11.7-14.2); RDW Standard Deviation 53.3 fL (35.1-46.3); Red Blood Cell Count 3.28 M/mm3 (4.30-5.90); White Blood Cell Count 14.68 K/mm3 (4.00-11.30)
[2018-09-08 04:19] LABS: Anion Gap 11 mmol/L (6-16); Blood Urea Nitrogen 61 mg/dL (8-24); Bun/Creatinine Ratio 52.6 (12.0-20.0); CO2, Blood 21 mmol/L (21-32); Calcium, Blood 8.1 mg/dL (8.5-10.1); Chloride, Blood 100 mmol/L (98-108); Creatinine, Blood 1.16 mg/dL (0.60-1.20); Glomerular Filtration Rate >60 (60-); Glucose, Blood 219 mg/dL (70-99); Potassium, Blood 4.2 mmol/L (3.5-5.5); Sodium, Blood 132 mmol/L (136-145)
--- NOTE | 2018-09-08 04:55 | NUR ---
PT COMPLAINS OF HIS LEGS HURTING WHICH HE RATES 8/10. MEDICATED PT WITH 50 MCG FENTANYL. PT FALLS ASLEEP AFTER DOSING, AND NOTED O2 SATURATIONS DROP. PLACED O2 AT 3 LITERS PER MINUTE WHICH IS HIS HOME FLOW RATE. HAVE DECREASED TO 1 L/M PER NASAL CANNULA. PT MAINTAINING > 90 PERCENT SATURATION WITH THIS. HAVE PROVIDED PT WITH YAUNKEUR SO THAT HE IS ABLE TO CLEAR EXPECTORATED SECRETIONS. DOPAMINE NEEDED TO BE INCREASED BACK TO 2 MCG'S SECONDARY TO BLOOD PRESSURES DECREASING AFTER FENTANYL. WILL CONTINUE TO MONITOR.
--- NOTE | 2018-09-08 06:45 | NUR ---
MEDICATED PT WITH NEURONTIN PER PRN EMAR FOR LEG PAIN DESCRIBED BY PT. PENDING RESULTS. PT HAS BEEN ABLE TO SELF CLEAR SECRETIONS THAT HE HAS EXPECTORATED. CONTINUES ON DOPAMINE AT 1 MCG/KG/MIN. BLOOD PRESSURES REMAIN WITH MAP AT OR ABOVE 60. HAVE NOT BEEN ABLE TO TITRATE DOWN FURTHER. WILL CONTINUE TO MONITOR PT, AND WILL REPORT OFF TO ONCOMING RN.
--- NOTE | 2018-09-08 07:45 | NUR ---
Recieved reort from Jonathan NIEVES. Patient is in bed with bed in chait=r position. He is on 2L O2 via NC and sats mid 90%. He has PICC line, dressing intact and site WNL's and is infusing D5 1/2 NS at 100 ml/hr and Dopamine at 1mcg/kg/min and systolic 90-120's. He was asking for pain nedication and recieved 50mcg Fentanyl for 8/10 pain from LE's. He is much more alert in room currently. Bilateral LE dressings and will changes this afternoon. See Pics for wounds. He has 14Fr. Keita draining to gravity sarbjit colored urine.
--- NOTE | 2018-09-08 09:30 | NUR ---
Patient ate 90% of breakfast and 240ml in thickened liquids and neded no help during this task. O2 remains at 2L O2 via NC and sats mid 90%'s. No other significant changes with patient.
--- NOTE | 2018-09-08 11:30 | NUR ---
Used lift to get in chair and changed LE's dressing after washing them and applied non adherance dressings with curlex and jorge alberto wraps. smothered feet in lotion and between toes. He is starting to eat lunch and states he does not need any help. Started Midodrine for BP and stopped Dopamine. Systolic 121, HR low 100's.
--- NOTE | 2018-09-08 14:12 | NUR ---
Patient was up out of bed with PT and stood using walker. He did this several times. HR while working with PT 120-150 A-Fib and came beack to the low 100's after back in chair where he states more comfortable. Dopamine remains off and systolic 112, HR 108. He requested something for cough and called Dr Jordan and recieved order. He is changing to med with tele.
--- NOTE | 2018-09-08 14:59 | NUR ---
Pt alert, resting off nd aon but does not relay restfull or full sleep. pt has difficult cough. abdomen firm and tight pt states it feels like it always feels since his hernia has worsened. pt holds shoulders and arms tight. right arm very stiff. pt complains of fatigue and low back thighness and pain. he states his lower legs feel like constanct wasp stings. affect flat, states he can only see a lttle out of one eye. he is hard of hearing seems to hear best out of left ear. EZEQUIEL Isbell got pt up to chair. Worked with patient on some relaxation techniques and movment for his extremeties. instructed family on how to assit him with with relaxingation. trying some ice therapy pt states it may help. Review of medications. Suggest lowest dose neurontin scheduled since half life is 8 hours. suggest po or rectal tylenol in low dose prn for pain and lowest does narcotic for breakthrough pain or before dressing changes or pysical therapy. suggest lidoderm patch to low back. will review OT and PT findings for further care plan interventions for pain and comfort. Suggest pharmacy review of medications. will continue to meet with family and gain rapport for group home goals. Pt very high risk for readmissions. He wants to try rehab. pt KPS score is 35%. Need to review pt wishes again and get them to complete polst. Patient high risk for sudden event. Pt unable to walk. swallow shows some signs of improvement. depedent in ADL's, Patient has poorly controlled complex pain and decline in vision and hearing. Will atttempt to get pt and family to set up plan of care of when hospice care will be appropriate as pt expresses suffering and has complex comorbid conditions.
--- NOTE | 2018-09-08 16:30 | NUR ---
Patient comntinues up in chair. He remains on 2L O2 via NC while sleeping. Called report to med/cardiovascular surgical tech and will take patient up to 339. He remains off Dopamine with systolics 100-120's. He was wheeled in chair with all belongings and dinner. Family at bedside. He has abx infusing in PICC and D5 1/2 NS at 100ml/hr. Reset pumps while on med floor.
--- NOTE | 2018-09-08 19:24 | NUR ---
SHIFT SUMMARY ICU TRANSFER THIS AFTERNOON. PATIENT SETTLED INTO ROOM. FAMILY AT BEDSIDE. PATIENT DENIES NAUSEA AND SHORTNESS OF BREATH. MEDICATED X 1 FOR PAIN IN LEG ULCERS. REPORT GIVEN TO KIMBERLEY NIEVES.
--- NOTE | 2018-09-09 03:44 | NUR ---
SHIFT SUMMARY PATIENT HAD NO ACUTE CHANGES OBSERVED THIS SHIFT. AXOX 3 AND BEDFAST THIS SHIFT. USES BARIATRIC BEDPAN IF TOO WEAK FOR BSC. TAKES MEDICATION WHOLE W/APPLESAUCE. PICC KIRSTEN INTACT. D5 1/2 NS INFUSING AT 150 mL/HR. CBG 273. PARKINSON PATENT AND DRAINING. GRAPPLER REPORTS A-FIB AVERAGE 98. ON 2L O2 NC. REPORTS LE PAIN AND FENTANYL 50 MCG X ONE. IV ABX INFUSED. DENIES SOB AND N/V. VSS/AFEBRILE. CALL LIGHT IN REACH. BED IN LOWEST POSITION. WILL CONTINUE TO MONITOR UNTIL DAY SHIFT NURSE ASSUMES CARE.
[2018-09-09 08:09] LABS: BASOPHILS ABSOLUTE AUTO 0.02 K/mm3 (0.00-0.23); BASOPHILS PERCENT AUTO 0 % (0-2); EOSINOPHILS PERCENT AUTO 1 % (0-6); Hematocrit 26.1 % (37.0-53.0); Hemoglobin 8.4 g/dL (13.5-17.5); IMMATURE GRAN PERCENT AUTO 1 % (0-1); LYMPHOCYTES ABSOLUTE AUTO 1.15 K/mm3 (0.84-5.20); LYMPHOCYTES PERCENT AUTO 14 % (21-46); MONOCYTES ABSOLUTE AUTO 0.99 K/mm3 (0.16-1.47); MONOCYTES PERCENT AUTO 12 % (4-13); Mean Corpuscular HGB 27.6 pg (26.0-34.0); Mean Corpuscular HGB Conc 32.2 g/dL (31.5-36.5); Mean Corpuscular Volume 86 fL (80-100); Mean Platelet Volume 8.6 fL (9.1-12.4); NEUTROPHILS ABSOLUTE AUTO 5.66 K/mm3 (1.96-9.15); NEUTROPHILS PERCENT AUTO 71 % (41-73); Platelet Count 200 K/mm3 (150-400); RDW Standard Deviation 54.6 fL (35.1-46.3); Red Blood Cell Count 3.04 M/mm3 (4.30-5.90); White Blood Cell Count 8.02 K/mm3 (4.00-11.30)
[2018-09-09 08:20] LABS: Vancomycin, Trough 13.3 ug/mL (5.0-10.0)
[2018-09-09 08:24] LABS: Anion Gap 8 mmol/L (6-16); Blood Urea Nitrogen 30 mg/dL (8-24); Bun/Creatinine Ratio 40.6 (12.0-20.0); CO2, Blood 24 mmol/L (21-32); Calcium, Blood 7.7 mg/dL (8.5-10.1); Chloride, Blood 99 mmol/L (98-108); Creatinine, Blood 0.74 mg/dL (0.60-1.20); Glomerular Filtration Rate >60 (60-); Glucose, Blood 212 mg/dL (70-99); Potassium, Blood 3.8 mmol/L (3.5-5.5); Sodium, Blood 131 mmol/L (136-145)
--- NOTE | 2018-09-09 18:25 | NUR ---
PT REPORTING THAT HIS PAIN NOT WELL CONTROLLED WITH PO DILAUDID ONLY. MSCONTIN 15MG PO BID ADDED, THIS HAS AFFORDED PT SOME RELIEF AND HE REPORTS THAT HE IS MORE COMFORTABLE. NO ACUTE CHANGES NOTED THIS SHIFT, WILL CONTINUE TO MONITOR AND REPORT TO ONCOMING RN
--- NOTE | 2018-09-09 19:17 | NUR ---
pt more alert today and interactive. he really wants his legs fixed. We reviewed steps it would take to get him the help he needs. reviewed increasing his movement and turn cough deep breath. challenged him to do some arm circles and two deep breaths every first commercial. Encouraged him to take control of his plan. Pt still high risk for readmission or failure of plan. will arrange time for family to meet for future plans.
--- NOTE | 2018-09-10 00:04 | NUR ---
PHARMACY ADJUSTED ZOSYN IV RATE FROM ICU/PCU 12.5Mml/HR TO 100 mL/HR.
--- NOTE | 2018-09-10 00:07 | NUR ---
PATIENT REQUESTED STOOL SOFTENER AND ATIVAN PO AND GIVEN PRN PER EMAR. FAMILY PRESENT IN ROOM.
--- NOTE | 2018-09-10 01:38 | NUR ---
PATIENT REPORTS GRAND-DAUGHTER AND BOY FRIEND IN ROOM KEEPING HIM UP. THEY EXIT ROOM AND RETURN AND TURN LIGHTS BACK ON AND START HAVING CONVERSATION. PATIENT WAS MEDICATED FOR PAIN AND ANXIETY TO HELP HIM SLEEP. FAMILY AWAKE IN ROOM. CALL LIGHT IN REACH.
--- NOTE | 2018-09-10 02:08 | NUR ---
GRAND-DAUGHTER AND BOY FRIEND STAYING IN ROOM AND KEEPING PATIENT UP. PATIENT SAID HE WOULD GO TO SLEEP AND FAMILY AND THEY HAVE NOT. CALL LIGHT IN REACH.
--- NOTE | 2018-09-10 02:11 | NUR ---
PATIENT REPORTS LEG PAIN AND GABAPENTIN 600 MG PRN GIVEN PER EMAR. WILL CONTINUE TO MONITOR.
--- NOTE | 2018-09-10 03:26 | NUR ---
SHIFT SUMMARY PATIENT HAD NO ACUTE CHANGES OBSERVED DURING THE SHIFT. AXOX 3 AND BEDFAST. TAKES MEDICATION WHOLE IN APPLE SAUCE. SCHEDULE MS CONTIN FOR LE PAIN. PATIENT REQUESTED STOOL SOFTNER AND ATIVAN FOR ANXIETY PRN AND RECEIVED PER EMAR. PICC KIRSTEN INTACT. DIESEL ENGINE TESTER REPORTS A-FIB 108. CBG 212. IV ABX INFUSED. REPORTED LE PAIN X 2 AND RECEIVED DILAUDID PO AND GABAPENTIN 600 MG. GRANDDAUGHTER AND BOY FRIEND IN AND OUT OF ROOM T/O SHIFT KEEPING PATIENT UP TURNING LIGHTS ON AND OFF REPORTS PATIENT. FAMILY HAVING CONVERSATION FOR AN ADDITIONAL HOUR AFTER THEY SAID THEY WOULD GO TO BED. TESSALON GIVEN AT START OF SHIFT FOR COUGH. VSS/AFEBRILE. DENIES SOB AND N/V. USES BARIATRIC BEDPAN. PARKINSON PATENT AND DRAINING. CALL LIGHT IN REACH. BED IN LOWEST POSITION. WILL CONTINUE TO MONITOR UNTIL DAY SHIFT NURSE ASSUMES CARE.
[2018-09-10 05:42] LABS: BASOPHILS ABSOLUTE AUTO 0.04 K/mm3 (0.00-0.23); BASOPHILS PERCENT AUTO 1 % (0-2); EOSINOPHILS ABSOLUTE AUTO 0.29 K/mm3 (0.00-0.68); EOSINOPHILS PERCENT AUTO 4 % (0-6); Hematocrit 26.2 % (37.0-53.0); Hemoglobin 8.2 g/dL (13.5-17.5); IMMATURE GRAN PERCENT AUTO 2 % (0-1); LYMPHOCYTES ABSOLUTE AUTO 1.18 K/mm3 (0.84-5.20); LYMPHOCYTES PERCENT AUTO 18 % (21-46); MONOCYTES ABSOLUTE AUTO 0.92 K/mm3 (0.16-1.47); MONOCYTES PERCENT AUTO 14 % (4-13); Mean Corpuscular HGB 27.2 pg (26.0-34.0); Mean Corpuscular HGB Conc 31.3 g/dL (31.5-36.5); Mean Corpuscular Volume 87 fL (80-100); Mean Platelet Volume 8.7 fL (9.1-12.4); NEUTROPHILS ABSOLUTE AUTO 4.09 K/mm3 (1.96-9.15); NEUTROPHILS PERCENT AUTO 62 % (41-73); Platelet Count 183 K/mm3 (150-400); RDW Coefficient Variation 19.3 % (11.7-14.2); RDW Standard Deviation 57.2 fL (35.1-46.3); Red Blood Cell Count 3.02 M/mm3 (4.30-5.90); White Blood Cell Count 6.62 K/mm3 (4.00-11.30)
[2018-09-10 06:04] LABS: Anion Gap 8 mmol/L (6-16); Blood Urea Nitrogen 18 mg/dL (8-24); Bun/Creatinine Ratio 26.1 (12.0-20.0); CO2, Blood 25 mmol/L (21-32); Calcium, Blood 7.7 mg/dL (8.5-10.1); Chloride, Blood 98 mmol/L (98-108); Creatinine, Blood 0.69 mg/dL (0.60-1.20); Glomerular Filtration Rate >60 (60-); Glucose, Blood 140 mg/dL (70-99); Potassium, Blood 3.6 mmol/L (3.5-5.5); Sodium, Blood 131 mmol/L (136-145)
[2018-09-10] MEDS ORDERED: Acidophilus1 EAC1 (16:16)
[2018-09-10] MEDS ORDERED: Humalog100 UNIT/3 (16:17)
[2018-09-10] MEDS ORDERED: DOXY100 PO (16:18)
[2018-09-10] MEDS ORDERED: MORP15ER PO (16:18)
[2018-09-10] MEDS ORDERED: LEVEMIR FL100 UNIT/1 SC (16:19)
[2018-09-10] MEDS ORDERED: ROXICODONE5 MG PO (16:20)
--- NOTE | 2018-09-10 16:36 | NUR ---
SUMMARY/DISCHARGE PT BEING DISCHARGED TO SNF, [facility], FAMILY IN THE ROOM HAS BEEN NOTIFIED, PICC DC'D BY PICC RN, TRANSPORTATION SET UP BY CARE MANAGEMENT, ORDERS SENT OVER BY CARE MANAGEMENT, AWATING TRANSPORT AROUND 5
--- NOTE | 2018-09-10 17:17 | NUR ---
SUMMARY PT DC'D TO [facility], TRANSPORTED BY FITZ, REPORT CALLED TO MARY AT [facility]
== END 2018-09-10 17:09 | DRG 871 ==
LOC: ER 01:22 → MEDS 05:09 → ERHOLD 05:09 → ICUE 07:50 → MEDS 09-08 17:20
PROVIDERS: Emergency Medicine; Hospitalist; Internal Medicine; ADMIT Internal Medicine
PROC: 02HV33Z Insertion of Infusion Device into Superior Vena Cava, Percutaneous Approach (ICD-10-PCS; principal; 2018-09-06)
PROC: 5A1945Z Respiratory Ventilation, 24-96 Consecutive Hours (ICD-10-PCS; 2018-09-06)
DX: A41.9 Sepsis, unspecified organism (principal); R65.21 Severe sepsis with septic shock; G92 Toxic encephalopathy; J96.00 Acute respiratory failure, unspecified whether with hypoxia or hypercapnia; J15.212 Pneumonia due to Methicillin resistant Staphylococcus aureus; N17.9 Acute kidney failure, unspecified; I13.0 Hypertensive heart and chronic kidney disease with heart failure and stage 1 through stage 4 chronic kidney disease, or unspecified chronic kidney disease; I50.32 Chronic diastolic (congestive) heart failure; E87.1 Hypo-osmolality and hyponatremia; E87.2 Acidosis; Z51.5 Encounter for palliative care; E11.22 Type 2 diabetes mellitus with diabetic chronic kidney disease; N18.3 Chronic kidney disease, stage 3 (moderate); I48.91 Unspecified atrial fibrillation; G89.29 Other chronic pain; G47.33 Obstructive sleep apnea (adult) (pediatric); E86.0 Dehydration; E78.5 Hyperlipidemia, unspecified; E87.5 Hyperkalemia; D63.1 Anemia in chronic kidney disease; E11.40 Type 2 diabetes mellitus with diabetic neuropathy, unspecified; E11.59 Type 2 diabetes mellitus with other circulatory complications; F32.9 Major depressive disorder, single episode, unspecified; I87.2 Venous insufficiency (chronic) (peripheral); K21.9 Gastro-esophageal reflux disease without esophagitis; E66.01 Morbid (severe) obesity due to excess calories; R62.7 Adult failure to thrive; Z79.4 Long term (current) use of insulin; Z91.19 Patient's noncompliance with other medical treatment and regimen; L89.899 Pressure ulcer of other site, unspecified stage; I36.1 Nonrheumatic tricuspid (valve) insufficiency; Z68.33 Body mass index [BMI] 33.0-33.9, adult
CPT/HCPCS: 36415; 36430; 36569; 51702; 71045; 80047; 80048; 80053; 80202; 82947; 83605; 83690; 84145; 84443; 84484; 85014; 85025; 85027; 85610; 85651; 85730; 86850; 86900; 86901; 86923; 87040; 87070; 87077; 87081; 87086; 87147; 87186; 87205; 92526; 92610; 93005; 93010; 93306; 94640; 94667; 94760; 96361-59; 96365-59; 96375-59; 97162; 97166; 97530; 99285-25; C1751; J0610; J1100; J1170; J1265; J1650; J1815; J1940; J2310; J2543; J3010; J3360; J3370; J7030; J7040; J7042; J7050; P9016

== ENCOUNTER 2018-10-22 07:27 | Inpatient (IN) | payer MEDICARE ==
[~2018-10-22] VITALS: Ht 182.9 cm; Wt 108.0 kg
[~2018-10-22 07:27] MED LIST changes: -ALBU3IS INH; +ALBU3IS NEB; +Acidophilus1 EAC1; -CITA20 PO; +Celexa10 MG PO; +Humalog100 UNIT/3; +Hydrocodone-Ap1 EA20 PO; +LEVEMIR FL100 UNIT/1 SC; +LORA1 PO; +MORP15ER PO; +SILVER SULFADIA50 G1 TOP
[2018-10-22 07:50] LABS: BASOPHILS PERCENT AUTO 0 % (0-2); EOSINOPHILS ABSOLUTE AUTO 0.04 K/mm3 (0.00-0.68); EOSINOPHILS PERCENT AUTO 0 % (0-6); Hematocrit 32.7 % (37.0-53.0); Hemoglobin 10.5 g/dL (13.5-17.5); IMMATURE GRAN ABSOLUTE AUTO 0.23 K/mm3 (0.00-0.10); IMMATURE GRAN PERCENT AUTO 1 % (0-1); LYMPHOCYTES ABSOLUTE AUTO 3.03 K/mm3 (0.84-5.20); LYMPHOCYTES PERCENT AUTO 11 % (21-46); MONOCYTES ABSOLUTE AUTO 2.37 K/mm3 (0.16-1.47); MONOCYTES PERCENT AUTO 9 % (4-13); Mean Corpuscular HGB Conc 32.1 g/dL (31.5-36.5); Mean Platelet Volume 8.7 fL (9.1-12.4); NEUTROPHILS ABSOLUTE AUTO 20.77 K/mm3 (1.96-9.15); NEUTROPHILS PERCENT AUTO 78 % (41-73); Platelet Count 257 K/mm3 (150-400); RDW Coefficient Variation 16.9 % (11.7-14.2); RDW Standard Deviation 49.7 fL (35.1-46.3); Red Blood Cell Count 4.04 M/mm3 (4.30-5.90); White Blood Cell Count 26.54 K/mm3 (4.00-11.30)
[2018-10-22 07:51] LABS: Mean Corpuscular Volume 81 fL (80-100)
[2018-10-22 07:53] LABS: Source, Urine Clean Catch
[2018-10-22] MEDS ORDERED: BISA10S PR (07:56)
[2018-10-22] MEDS ORDERED: ANTIFUNGAL POWD71 GM (07:57)
[2018-10-22] MEDS ORDERED: TUMS500 MG PO (07:57)
[2018-10-22] MEDS ORDERED: CBD OIL (07:57)
[2018-10-22] MEDS ORDERED: Milk Of Ma400 MG/5 M PO (07:58)
[2018-10-22] MEDS ORDERED: ALBU2.5V5 NEB (07:59)
[2018-10-22] MEDS ORDERED: Senna8.6 MG PO (08:00)
[2018-10-22] MEDS ORDERED: ALLERGY CREAM30 GM TOP (08:00)
[2018-10-22] MEDS ORDERED: POTCHL20ER PO (08:01)
[2018-10-22] MEDS ORDERED: ACET325 PO (08:01)
[2018-10-22] MEDS ORDERED: GUAI600T33 PO (08:01)
[2018-10-22 08:06] LABS: Bilirubin, Urine Neg (Neg); Blood, Urine 4+ (Neg); Glucose Qualitative, Urine Neg (Neg); Ketones, Urine Neg (Neg); Leukocyte Esterase, Urine 3+ (Neg); Nitrite, Urine Pos (Neg); Protein, Urine 2+ (Neg); Urobilinogen, Urine 2+ (Normal)
[2018-10-22 08:13] LABS: Alanine Aminotransfer (ALT/SGP 9 U/L (12-78); Albumin, Blood 2.1 g/dL (3.4-5.0); Albumin/Globulin Ratio 0.5 (0.8-1.8); Alk Phos 143 U/L (50-136); Anion Gap 6 mmol/L (6-16); Aspartate Aminotrans (AST/SGOT 21 U/L (12-37); Bilirubin, Total 2.7 mg/dL (0.1-1.0); Blood Urea Nitrogen 9 mg/dL (8-24); Bun/Creatinine Ratio 11.3 (12.0-20.0); CO2, Blood 26 mmol/L (21-32); Calcium, Blood 7.7 mg/dL (8.5-10.1); Chloride, Blood 99 mmol/L (98-108); Globulin, Blood 4.3 g/dL (2.2-4.0); Glomerular Filtration Rate >60 (60-); Glucose, Blood 94 mg/dL (70-99); Potassium, Blood 4.3 mmol/L (3.5-5.5); Sodium, Blood 131 mmol/L (136-145); Total Protein, Blood 6.4 g/dL (6.4-8.2)
[2018-10-22 08:16] LABS: Appearance, Urine Hazy (Clear); Color, Urine Yellow (P-Yellow)
[2018-10-22 08:19] LABS: Bacteria Many /hpf; Squamous Epithelial Cells Rare /hpf (Few); White Blood Cells, Urine TNTC /hpf (0-5)
[2018-10-22] MEDS ORDERED: OXYC5 PO (13:45)
[2018-10-22 15:59] LABS: Source, Urine Catheter
[2018-10-22 16:12] LABS: Bilirubin, Urine Neg (Neg); Blood, Urine 4+ (Neg); Glucose Qualitative, Urine Neg (Neg); Ketones, Urine Neg (Neg); Leukocyte Esterase, Urine 3+ (Neg); Nitrite, Urine Neg (Neg); Protein, Urine 2+ (Neg); Urobilinogen, Urine NORM (Normal)
[2018-10-22 16:19] LABS: Appearance, Urine Hazy (Clear); Color, Urine Yellow (P-Yellow)
[2018-10-22 16:20] LABS: Bacteria Mod /hpf; Squamous Epithelial Cells Rare /hpf (Few); Transitional Epithelial Cells Few /hpf (0-Rare); White Blood Cells, Urine TNTC /hpf (0-5)
[2018-10-22 16:21] LABS: Renal Epithelial Few /hpf (0-Rare)
--- NOTE | 2018-10-22 17:38 | NUR ---
PT ARRIVED TO UNIT ON 2 LPM NC, O2 SAT ABOVE 88%. PT HAS HOME PARKINSON IN PLACE, CHANGED OUT AND SET SAMPLE TO LAB PER PROTOCOL. PT HAS BLE WOUNDS TO LEGS AND HEELS, CLEANED AND REDRESSED LEGS WITH ABD PADS, GAUZE WRAP. MEPILEX PLACED TO COCCYX FOR REDDENED/BLISTERED AREA WITH SMALL SCAB IN PLACE. SEE EXTENSIVE PHOTOS IN CHART. CONTINUED FLUID BOLUS WHEN PATIENT ARRIVED TO UNIT. WILL CONTINUE TO MONITOR AND GIVE REPORT TO NOC RN.
[2018-10-23 03:38] LABS: BASOPHILS ABSOLUTE AUTO 0.03 K/mm3 (0.00-0.23); BASOPHILS PERCENT AUTO 0 % (0-2); EOSINOPHILS PERCENT AUTO 0 % (0-6); Hematocrit 33.7 % (37.0-53.0); Hemoglobin 10.7 g/dL (13.5-17.5); IMMATURE GRAN ABSOLUTE AUTO 0.16 K/mm3 (0.00-0.10); IMMATURE GRAN PERCENT AUTO 1 % (0-1); LYMPHOCYTES ABSOLUTE AUTO 1.94 K/mm3 (0.84-5.20); LYMPHOCYTES PERCENT AUTO 10 % (21-46); MONOCYTES ABSOLUTE AUTO 1.31 K/mm3 (0.16-1.47); MONOCYTES PERCENT AUTO 7 % (4-13); Mean Corpuscular HGB 26.7 pg (26.0-34.0); Mean Corpuscular HGB Conc 31.8 g/dL (31.5-36.5); Mean Platelet Volume 9.5 fL (9.1-12.4); NEUTROPHILS ABSOLUTE AUTO 15.27 K/mm3 (1.96-9.15); NEUTROPHILS PERCENT AUTO 82 % (41-73); Platelet Count 238 K/mm3 (150-400); RDW Coefficient Variation 16.9 % (11.7-14.2); RDW Standard Deviation 52.3 fL (35.1-46.3); Red Blood Cell Count 4.01 M/mm3 (4.30-5.90); White Blood Cell Count 18.71 K/mm3 (4.00-11.30)
[2018-10-23 03:41] LABS: Mean Corpuscular Volume 84 fL (80-100)
[2018-10-23 04:00] LABS: Alanine Aminotransfer (ALT/SGP 11 U/L (12-78); Albumin, Blood 2.1 g/dL (3.4-5.0); Albumin/Globulin Ratio 0.5 (0.8-1.8); Alk Phos 120 U/L (50-136); Anion Gap 8 mmol/L (6-16); Aspartate Aminotrans (AST/SGOT 22 U/L (12-37); Bilirubin, Total 2.2 mg/dL (0.1-1.0); Blood Urea Nitrogen 14 mg/dL (8-24); Bun/Creatinine Ratio 18.4 (12.0-20.0); CO2, Blood 25 mmol/L (21-32); Calcium, Blood 7.5 mg/dL (8.5-10.1); Chloride, Blood 100 mmol/L (98-108); Creatinine, Blood 0.76 mg/dL (0.60-1.20); Globulin, Blood 4.2 g/dL (2.2-4.0); Glomerular Filtration Rate >60 (60-); Glucose, Blood 215 mg/dL (70-99); Magnesium, Blood 1.8 mg/dL (1.6-2.4); Potassium, Blood 4.5 mmol/L (3.5-5.5); Sodium, Blood 133 mmol/L (136-145); Total Protein, Blood 6.3 g/dL (6.4-8.2); Troponin I <0.015 ng/mL (0.000-0.040)
--- NOTE | 2018-10-23 06:50 | NUR ---
PATIENT SLEPT ABOUT FIVE HOURS LAST NIGHT. VSS. WILL CONTINUE TO MONITOR AND ASSESS UNTIL END OF SHIFT. FAMILY MEMBERS AT BEDSIDE AT TIMES. XRAY COMPLETED THIS MORNING. BOWEL MOVEMENT LAST NIGHT.
--- NOTE | 2018-10-23 09:33 | NUR ---
CHANGED BANDAGES ON LEGS B/L. USED WARM WASHCLOHES TO SOFTEN, LOOSEN AND REMOVE SKIN, REAPPLIED SILICONE LOTION LIBERALLY AND USED ABD PADS AND KERLEX TO RECOVER. WOUNDS ARE C/D/I AT THIS TIME. PT TOLERATED WELL.,
--- NOTE | 2018-10-23 09:35 | NUR ---
RECEIVED REPORT AND ASSUMED CARE OF PATIENT. HIS COLORING LOOKS A BIT BETTER THIS AM, SLIGHT BIT OF PINK IN HIS CHEEKS. PT IS USING THE SUCTION AD FLORI AND TRIES TO COUGH AND SUCTION OUT THE SPUTUM. PT CONTINUES ON 2 LPM O2 VIA NC, TOLERATING WELL. PT GIVEN BED BATH, MEDS, BREAKFAST AND WOUND DRESSINGS CHANGED THIS AM. WILL CONTINUE TO MONITOR AND TREAT.
--- NOTE | 2018-10-23 14:21 | NUR ---
Upon receiving a referral requesting spiritual care, I entered patient's room and found Patient sitting up in bed and alert. Patient openly shares about his pentacostal background, the addictions he has overcome and his medical history. I listened empathically, provided pastoral equal opportunity counselor, quoted inspirational Bible verses and provided prayer. Patient responded well and displayed evidence of an elevated mood. Patient also requested to see Father Dar and so I told Father Dar about the request and he said he will follow up.
--- NOTE | 2018-10-23 17:35 | NUR ---
SHIFT SUMMARY: PT HAS HAD A GOOD DAY TODAY, HIS COLOR CONTINUES TO IMPROVE AND HIS CHEEKS ARE A LITTLE MARCELINO THIS AFTERNOON, HE CONTINUES TO BE AFEBRILE AND USING 2 LPM O2 VIA NC. BEGAN USING FLUTTER VALVE THIS MORNING TO HELP BREAK UP THE CONGESTION, OKAY'D BY DR. MACIAS. PT HAS A PARKINSON CATH IN PLACE PATENT AND DRAINING DARK YELLOW URINE. HAVE DUMPED AT INTERVALS TODAY TO ENSURE PROPER OUTPUT. RUNNING NS AT 100 ML/HR AND GIVING ABX PRESCRIBED. FAMILY AT BEDSIDE THROUGHOUT THE SHIFT. TANESHA WAS SLEEPING IN ROOM WITH BOYFRIEND UNTIL NEARLY 1030. TRIED TO AWAKE HER AND SHE WOULD NOT AWAKE TO CALLING OUT HER NAME AND SHAKING HER. CALLED FAMILY TO ENSURE THEY WOULD COME CHECK ON HER, AFTER AWOKEN, SHE HAS BEEN OUT OF ROOM FOR THE AFTERNOON, HER AUNT STATED SHE WOULD LIKE TO COME BACK AND STAY THE NIGHT WITH HER GRANDFATHER KIRSTY. PT AFFECT HAS BEEN POSITIVE SINCE HE HAD SPIRITUAL CARE AND HIS HOME BACK TENDER FOURDRINIER VISIT TODAY. BED LOCKED AND LOW, SUCTION YOUNKER AND CALL LIGHT IN EASY REACH OF PATIENT. WILL CONTINUE TO MONITOR AND FOLLOW ORDERS AND PREPARE TO GIVE REPORT TO NOC RN.
--- NOTE | 2018-10-24 04:47 | NUR ---
ASSUMED CARE OF PATIENT AT APPROXIMATELY 1910 FROM MICHAEL Mosqueda RN. PATIENT ALERT AND ORIENTED TO FAMILY, SELF AND . PATIENT COMPLAINS OF CHRONIC PAIN IN LEGS; MEDICATED PER EMAR; PATIENT REPORTS FEELING ANXIOUS; MEDICATED PER EMAR ONCE LAST NIGHT. PATIENT HAS CHRONIC NUMBNESS AND TINGLING. PATIENT HAS BOWEL MOVEMENT SHORTLY AFTER SHIFT CHANGE. PATIENT CONFUSED AND FORGETFUL AT TIMES. PATIENT HAS SUCTIONS; NEEDS ENCOURAGED TO USE FLUTTER DEVICE. PATIENT REPORTS HE CANNOT BREATH ONE TIME LAST NIGHT; VSS; PATIENT RECIEVING BREATHING TREATMENT WITH MASK OVER FACE; REPORTS CLAUSTROPHOBIC; TREATMENT MASK CHANGED; PATIENT FELT BETTER; REPORTS UNABLE TO COUGH UP SPUTUM; CALLED DR. WALKER; ORDERS RECIEVED; DID NOT DEEP SUCTION. URINARY CATH DRAINING YELLOW URINE; IMPROVING COMPARED TO LAST NIGHT. IVF INFUSING PER ORDER; TURNED FREQUENTLY. AFIB ON TELE; RATE 105-110'S; OXYGEN SATURATION ABOVE 90% ON 2LPM VIA NC. FAMILY MEMBERS IN AND OUT OF ROOM THROUGH OUT NIGHT. THICKENED LIQUIDS. PATIENT CURRENTLY SLEEPING IN BED; CALL LIGHT IN REACH; BED IN LOWEST POSISTION; WILL CONTINUE TO MONITOR AND ASSESS UNTIL END OF SHIFT.
[2018-10-24 09:25] LABS: BASOPHILS ABSOLUTE AUTO 0.02 K/mm3 (0.00-0.23); BASOPHILS PERCENT AUTO 0 % (0-2); EOSINOPHILS ABSOLUTE AUTO 0.05 K/mm3 (0.00-0.68); EOSINOPHILS PERCENT AUTO 0 % (0-6); Hematocrit 33.8 % (37.0-53.0); Hemoglobin 10.5 g/dL (13.5-17.5); IMMATURE GRAN ABSOLUTE AUTO 0.13 K/mm3 (0.00-0.10); IMMATURE GRAN PERCENT AUTO 1 % (0-1); LYMPHOCYTES ABSOLUTE AUTO 1.82 K/mm3 (0.84-5.20); LYMPHOCYTES PERCENT AUTO 15 % (21-46); MONOCYTES PERCENT AUTO 10 % (4-13); Mean Corpuscular HGB Conc 31.1 g/dL (31.5-36.5); Mean Corpuscular Volume 84 fL (80-100); Mean Platelet Volume 9.3 fL (9.1-12.4); NEUTROPHILS ABSOLUTE AUTO 8.65 K/mm3 (1.96-9.15); NEUTROPHILS PERCENT AUTO 73 % (41-73); Platelet Count 218 K/mm3 (150-400); RDW Coefficient Variation 16.9 % (11.7-14.2); RDW Standard Deviation 52.3 fL (35.1-46.3); Red Blood Cell Count 4.04 M/mm3 (4.30-5.90); White Blood Cell Count 11.87 K/mm3 (4.00-11.30)
[2018-10-24 09:48] LABS: Alanine Aminotransfer (ALT/SGP 11 U/L (12-78); Albumin, Blood 2.1 g/dL (3.4-5.0); Albumin/Globulin Ratio 0.5 (0.8-1.8); Alk Phos 98 U/L (50-136); Anion Gap 6 mmol/L (6-16); Aspartate Aminotrans (AST/SGOT 18 U/L (12-37); Bilirubin, Total 1.2 mg/dL (0.1-1.0); Blood Urea Nitrogen 19 mg/dL (8-24); Bun/Creatinine Ratio 21.3 (12.0-20.0); CO2, Blood 24 mmol/L (21-32); Calcium, Blood 7.5 mg/dL (8.5-10.1); Chloride, Blood 103 mmol/L (98-108); Creatinine, Blood 0.89 mg/dL (0.60-1.20); Globulin, Blood 4.6 g/dL (2.2-4.0); Glomerular Filtration Rate >60 (60-); Glucose, Blood 181 mg/dL (70-99); Potassium, Blood 3.9 mmol/L (3.5-5.5); Sodium, Blood 133 mmol/L (136-145); Total Protein, Blood 6.7 g/dL (6.4-8.2)
--- NOTE | 2018-10-24 11:48 | NUR ---
Met pt in bed resting and his nurse in the room attending to hois needs , encouraged pt.and offered some prayer for the pt.
[2018-10-24 12:12] LABS: Vancomycin, Trough 20.3 ug/mL (5.0-10.0)
--- NOTE | 2018-10-24 12:26 | NUR ---
BEGINNING OF SHIFT Assumed care at 0700. Report recieved from Claudia NIEVES. Meds administered whole with applesauce prior to ST eval. Pt tolerated meds well. Pt states he does not want to go back to his home facility. When this RN inquired on reason for not wanting to return, pt stated dissatisfaction with pureed food and thickened liquids. Pt educated on reason for these precautions. ST reported to this RN that pt stated he would rather eat as he pleases, despite risk for PNA. This RN spoke to it sales consultant to inquire about pt's likes and dislikes. This RN also spoke to Lisandra from Palliative Care. Pt to transfer to room 310. Telephone report given to Kimberlee NIEVES.
--- NOTE | 2018-10-24 14:31 | NUR ---
LATE ENTRY- PT TRANSFERED PT TRANSFERED AT 1300. PT IN STABLE CONDITION. PT ORIENTED TO ROOM. SUCTION PROVIDED FOR PT. CALL LIGHT IN REACH. WILL CONTINUE TO MONITOR. REPORT RECIEVED FROM KIARA RICHARDSON RN.
--- NOTE | 2018-10-24 17:34 | NUR ---
SHIFT SUMMARY PT MEDICATED FOR PAIN & ANXIETY SINCE TRANSFER. PT VERY GURGLY WHEN DEEP BREATHING OR COUGHING. PT ENCOURAGED TO USE SUCTION WHEN HE COUGHS ANYTHING UP. PT COMPLIANT WITH THIS. PT USING HIS FLUTTER VALUE THROUGHOUT THE SHIFT. NO CHANGES IN ASSESSMENT AT THIS TIME. PT TOLERATING REPOSITIONING. VSS. WILL CONTINUE TO MONITOR UNTIL TURNOVER IS COMPLETE.
[2018-10-25 05:40] LABS: BASOPHILS ABSOLUTE AUTO 0.03 K/mm3 (0.00-0.23); BASOPHILS PERCENT AUTO 0 % (0-2); EOSINOPHILS ABSOLUTE AUTO 0.34 K/mm3 (0.00-0.68); EOSINOPHILS PERCENT AUTO 4 % (0-6); Hematocrit 33.2 % (37.0-53.0); Hemoglobin 10.2 g/dL (13.5-17.5); IMMATURE GRAN ABSOLUTE AUTO 0.08 K/mm3 (0.00-0.10); IMMATURE GRAN PERCENT AUTO 1 % (0-1); LYMPHOCYTES ABSOLUTE AUTO 1.68 K/mm3 (0.84-5.20); LYMPHOCYTES PERCENT AUTO 20 % (21-46); MONOCYTES ABSOLUTE AUTO 0.76 K/mm3 (0.16-1.47); MONOCYTES PERCENT AUTO 9 % (4-13); Mean Corpuscular HGB 25.6 pg (26.0-34.0); Mean Corpuscular HGB Conc 30.7 g/dL (31.5-36.5); Mean Corpuscular Volume 83 fL (80-100); Mean Platelet Volume 9.7 fL (9.1-12.4); NEUTROPHILS ABSOLUTE AUTO 5.45 K/mm3 (1.96-9.15); NEUTROPHILS PERCENT AUTO 65 % (41-73); Platelet Count 211 K/mm3 (150-400); RDW Coefficient Variation 16.8 % (11.7-14.2); RDW Standard Deviation 51.4 fL (35.1-46.3); Red Blood Cell Count 3.99 M/mm3 (4.30-5.90); White Blood Cell Count 8.34 K/mm3 (4.00-11.30)
[2018-10-25 06:06] LABS: Alanine Aminotransfer (ALT/SGP 16 U/L (12-78); Albumin, Blood 2.1 g/dL (3.4-5.0); Albumin/Globulin Ratio 0.5 (0.8-1.8); Alk Phos 130 U/L (50-136); Anion Gap 7 mmol/L (6-16); Aspartate Aminotrans (AST/SGOT 36 U/L (12-37); Bilirubin, Total 1.2 mg/dL (0.1-1.0); Blood Urea Nitrogen 15 mg/dL (8-24); Bun/Creatinine Ratio 18.3 (12.0-20.0); CO2, Blood 25 mmol/L (21-32); Calcium, Blood 7.5 mg/dL (8.5-10.1); Chloride, Blood 104 mmol/L (98-108); Creatinine, Blood 0.82 mg/dL (0.60-1.20); Globulin, Blood 4.4 g/dL (2.2-4.0); Glomerular Filtration Rate >60 (60-); Glucose, Blood 116 mg/dL (70-99); Potassium, Blood 3.4 mmol/L (3.5-5.5); Sodium, Blood 136 mmol/L (136-145); Total Protein, Blood 6.5 g/dL (6.4-8.2)
--- NOTE | 2018-10-25 06:14 | NUR ---
SUMMARY: 76 Y/O MALE RESTED IN HIGH FOWLERS POSITION ALL EVENING AND WAS ASSISTED WITH REPOSITIONING BY STAFF. THIS NURSE WASHED BILATERAL LOWER LEGS WITH SOAP AND WARM WATER AND REMOVED LARGE AMOUNT DRIED SCALLY SKIN, LEGS REWRAPPED WITH KERLIX. NO DRAINAGE NOTED FROM LEGS. PT ALERT AND ORIENTED X 2, USING CALL LIGHT FREQUENTLY FOR NUMEROUS REQUESTS FROM STAFF. PT MAINTAINED IN DROPLET ISOLATION. PT LUNGS SOUNDS ARE COARSE THROUGHOUT WITH FREQUENT HARSH PRODUCTIVE COUGH--PT USING BEDSIDE SUCTION PRN. PT TAKING IN NECTAR THICKENED WATER WELL. PT DENIES PAIN OR NAUSEA. PTS BED LOW POSITION, CALL LIGHT AT SIDE.
--- NOTE | 2018-10-25 14:00 | NUR ---
Met pt. sitting up in a chair taking his lunch, he reports doing well encouraged pt. and offered some prayers.
--- NOTE | 2018-10-25 16:18 | NUR ---
Brief Initial Visit: Palliative Care Consult for Pulmonary, Advanced Care Planning, End of Life/Comfort Care. Inital vist was brief due to physical therapy coming to work with Pt. Pt is A&Ox4 and denies pain at this time. Pt reports anxiety and states this is due to not being able to be himself. Pt reports managed dyspnea and states his SOB worsens with activity. Pt reports that he lives at home with his and daughter and is of Mandaen mehran. Asked Pt to elaborate on the statement "not able to be myself". Pt reports that he is not able to do the activities he likes to do and states this has been going on for 2 years. At this time physical therapy has come to work with Pt. Instructed Pt that palliative care will F/U at a later time to discuss goals of care. Pt is agreeable. Plan: Palliative Care will discuss goals of care and assess needs.
--- NOTE | 2018-10-25 18:05 | NUR ---
SHIFT SUMMARY 78 YR OLD MALE. ADMITTED FOR SEVERE SEPSIS/PNEUMONIA. FULL CODE. FROM [facility]. HX: DM 2, CHF, AFIB. PT IS ACHS, LOW SS, NECTAR THICK/PUREE DIET/NO STRAWS. CHRONIC PARKINSON FOR RETENTION. LUNGS COARSE. PT SUCTIONS SELF AND RT SUCTIONS PT. THICKENED MUCUS. 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 PILLS SHOULD BE CRUSHED IN SAUCE. O2 IS 2 LPM. OCEAN SPRAY NASAL SPRAY ORDERED TODAY FOR DRY MUCUS DEPOSITS IN NARES.
--- NOTE | 2018-10-26 06:42 | NUR ---
SHIFT SUMMARY ALERT AND ANSWERING QUESTIONS APPROPRIATELY THROUGHOUT SHIFT. COOPERATIVE WITH CARE. C/O PAIN PERIODICALLY. PARKINSON PATENT AND SECURED. BLE WASHED, NEW PICTURES TAKEN AND RE-WRAPPED. LUNG SOUNDS REMAIN COARSE AND DIMINISHED. USING YANKER APPROPRIATELY. REMAINS ON 2L VIA NC, SATING 97%. GRAND-DAUGHTER IN AND OUT OF ROOM THROUGHOUT SHIFT. NO ACUTE CHANGES OVERNIGHT. BED IN LOWEST POSITION. CALL LIGHT AND BELONGINGS WITHIN REACH. WCTM. REPORT TO ONCOMING RN.
--- NOTE | 2018-10-26 07:40 | NUR ---
PT STATUS INFORMED BY PILLAR MAN THAT BLOOD GLUCOSE FINGERSTICK WAS 64. GAVE PT NECTAR THICK ORANGE JUICE AND VANILLA PUDDING. BREAKFAST WILL BE ARRIVING SHORTLY WELL. WILL CONTINUE TO MONITOR. PT SLEEPY BUT ABLE TO TALK. INFORMED ME HE DID NOT SLEEP WELL LAST NIGHT.
--- NOTE | 2018-10-26 07:56 | NUR ---
ASPIRATION-DYSPHAGIA/MEDICATION ISSUE IT IS OF NOTE THAN CERTAIN MEDICATIONS ON THIS PT'S EMAR CANNOT BE CRUSHED. THE PT IS A HIGH ASPIRATION RISK AND HAS DYSPHAGIA, REQUIRING FREQUENT SUCTIONING. I WILL HOLD UNCRUSHABLE MEDS FOR NOW AND INFORM HOSPITALIST.
[2018-10-26 09:25] LABS: Anion Gap 6 mmol/L (6-16); Blood Urea Nitrogen 13 mg/dL (8-24); Bun/Creatinine Ratio 18.2 (12.0-20.0); CO2, Blood 23 mmol/L (21-32); Calcium, Blood 6.3 mg/dL (8.5-10.1); Chloride, Blood 107 mmol/L (98-108); Creatinine, Blood 0.71 mg/dL (0.60-1.20); Glomerular Filtration Rate >60 (60-); Glucose, Blood 71 mg/dL (70-99); Potassium, Blood 5.1 mmol/L (3.5-5.5); Sodium, Blood 136 mmol/L (136-145)
[2018-10-26 09:51] LABS: BASOPHILS ABSOLUTE AUTO 0.06 K/mm3 (0.00-0.23); BASOPHILS PERCENT AUTO 1 % (0-2); EOSINOPHILS ABSOLUTE AUTO 0.62 K/mm3 (0.00-0.68); EOSINOPHILS PERCENT AUTO 8 % (0-6); Hematocrit 33.6 % (37.0-53.0); Hemoglobin 10.2 g/dL (13.5-17.5); IMMATURE GRAN ABSOLUTE AUTO 0.07 K/mm3 (0.00-0.10); IMMATURE GRAN PERCENT AUTO 1 % (0-1); LYMPHOCYTES PERCENT AUTO 21 % (21-46); MONOCYTES ABSOLUTE AUTO 0.82 K/mm3 (0.16-1.47); MONOCYTES PERCENT AUTO 11 % (4-13); Mean Corpuscular HGB 26.3 pg (26.0-34.0); Mean Corpuscular HGB Conc 30.4 g/dL (31.5-36.5); Mean Platelet Volume 10.1 fL (9.1-12.4); NEUTROPHILS ABSOLUTE AUTO 4.35 K/mm3 (1.96-9.15); NEUTROPHILS PERCENT AUTO 58 % (41-73); Platelet Count 194 K/mm3 (150-400); RDW Coefficient Variation 16.8 % (11.7-14.2); RDW Standard Deviation 53.6 fL (35.1-46.3); Red Blood Cell Count 3.88 M/mm3 (4.30-5.90); White Blood Cell Count 7.52 K/mm3 (4.00-11.30)
[2018-10-26 09:57] LABS: Mean Corpuscular Volume 87 fL (80-100)
--- NOTE | 2018-10-26 14:03 | NUR ---
Pt. is lying in bed resting ,he reports doing well but slow, encouraged pt . and offered prayed for him
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
[2018-10-26 18:03] LABS: Vancomycin, Trough 20.3 ug/mL (5.0-10.0)
--- NOTE | 2018-10-27 04:52 | NUR ---
SHIFT SUMMARY PT HAS BEEN AWAKE MUCH OF THE NIGHT, GRANDDAUGHTER CAME IN DURING THE NIGHT AND VISITED. PT HAS BEEN MEDICATED X2 FOR PAIN. LOWER EXTREMITIES UP INTO THIGHS EDEMATOUS AND TIGHT. DRESSING CHANGE DONE ON LOWER EXTREMITIES. IVF'S INFUSING WITHOUT DIFFICULTY. WILL CONTINUE TO MONITOR.
[2018-10-27 05:04] LABS: BASOPHILS ABSOLUTE AUTO 0.04 K/mm3 (0.00-0.23); BASOPHILS PERCENT AUTO 1 % (0-2); EOSINOPHILS ABSOLUTE AUTO 0.55 K/mm3 (0.00-0.68); EOSINOPHILS PERCENT AUTO 7 % (0-6); Hematocrit 32.2 % (37.0-53.0); Hemoglobin 9.8 g/dL (13.5-17.5); IMMATURE GRAN PERCENT AUTO 1 % (0-1); LYMPHOCYTES ABSOLUTE AUTO 1.74 K/mm3 (0.84-5.20); LYMPHOCYTES PERCENT AUTO 22 % (21-46); MONOCYTES ABSOLUTE AUTO 1.01 K/mm3 (0.16-1.47); MONOCYTES PERCENT AUTO 13 % (4-13); Mean Corpuscular HGB 26.1 pg (26.0-34.0); Mean Corpuscular HGB Conc 30.4 g/dL (31.5-36.5); Mean Corpuscular Volume 86 fL (80-100); Mean Platelet Volume 9.2 fL (9.1-12.4); NEUTROPHILS ABSOLUTE AUTO 4.45 K/mm3 (1.96-9.15); NEUTROPHILS PERCENT AUTO 56 % (41-73); Platelet Count 171 K/mm3 (150-400); RDW Standard Deviation 52.2 fL (35.1-46.3); Red Blood Cell Count 3.76 M/mm3 (4.30-5.90); White Blood Cell Count 7.89 K/mm3 (4.00-11.30)
[2018-10-27 05:38] LABS: Alanine Aminotransfer (ALT/SGP 23 U/L (12-78); Albumin, Blood 1.9 g/dL (3.4-5.0); Albumin/Globulin Ratio 0.4 (0.8-1.8); Alk Phos 148 U/L (50-136); Anion Gap 6 mmol/L (6-16); Aspartate Aminotrans (AST/SGOT 36 U/L (12-37); Blood Urea Nitrogen 11 mg/dL (8-24); CO2, Blood 29 mmol/L (21-32); Calcium, Blood 7.2 mg/dL (8.5-10.1); Chloride, Blood 105 mmol/L (98-108); Creatinine, Blood 0.69 mg/dL (0.60-1.20); Globulin, Blood 4.3 g/dL (2.2-4.0); Glomerular Filtration Rate >60 (60-); Glucose, Blood 103 mg/dL (70-99); Potassium, Blood 3.3 mmol/L (3.5-5.5); Sodium, Blood 140 mmol/L (136-145); Total Protein, Blood 6.2 g/dL (6.4-8.2)
--- NOTE | 2018-10-27 18:15 | NUR ---
PATIENT UP TO CHAIR FOR LUNCH AND OUT SIDE IN W/C TODAY WITH FAMILY. 2-3 ASSIST FOR PIVOT TX. 20G IV TO R WRIST WNL AND SL. PATIENT TAKES PILLS CRUSHED IN APPLESAUCE, PUREE/NECTAR THIS LIQUIDS. ICE CHIPS GIVE TODAY PER MD ORDER. ACHS BLOOD SUGARS, NO COVERAGE NEEDED THIS SHIFT. COCCYX RED AND EXORIATED, MEPILEX CHANGED TODAY. YEAST RASH TO GROIN/FOLDS, NYSTATIN TO TREAT. CHRONIC PAIN IN LEGS AND BACK, MS CONTIN AND OXYCODONE GIVEN TO TREAT. 2.5L O2 TO MAINTAIN SATS. PATIENT ABLE TO SUCTION SELF. DRESSING TO BLE ARE CHANGED DAILY ON ASSOCIATE PROFESSOR OF LAW. PATIENT CALM AND COOPERATIVE WITH CARE AND CALLS APPROPRIATELY FOR ASSISTANCE.
[2018-10-28 05:15] LABS: BASOPHILS ABSOLUTE AUTO 0.04 K/mm3 (0.00-0.23); BASOPHILS PERCENT AUTO 1 % (0-2); EOSINOPHILS ABSOLUTE AUTO 0.57 K/mm3 (0.00-0.68); EOSINOPHILS PERCENT AUTO 7 % (0-6); Hemoglobin 9.5 g/dL (13.5-17.5); IMMATURE GRAN ABSOLUTE AUTO 0.12 K/mm3 (0.00-0.10); IMMATURE GRAN PERCENT AUTO 1 % (0-1); LYMPHOCYTES ABSOLUTE AUTO 1.73 K/mm3 (0.84-5.20); LYMPHOCYTES PERCENT AUTO 20 % (21-46); MONOCYTES ABSOLUTE AUTO 1.34 K/mm3 (0.16-1.47); MONOCYTES PERCENT AUTO 16 % (4-13); Mean Corpuscular HGB 26.2 pg (26.0-34.0); Mean Corpuscular HGB Conc 30.6 g/dL (31.5-36.5); Mean Corpuscular Volume 85 fL (80-100); Mean Platelet Volume 9.9 fL (9.1-12.4); NEUTROPHILS ABSOLUTE AUTO 4.78 K/mm3 (1.96-9.15); NEUTROPHILS PERCENT AUTO 56 % (41-73); Platelet Count 184 K/mm3 (150-400); RDW Coefficient Variation 17.2 % (11.7-14.2); RDW Standard Deviation 52.2 fL (35.1-46.3); Red Blood Cell Count 3.63 M/mm3 (4.30-5.90); White Blood Cell Count 8.58 K/mm3 (4.00-11.30)
[2018-10-28 05:35] LABS: Anion Gap 6 mmol/L (6-16); Blood Urea Nitrogen 10 mg/dL (8-24); Bun/Creatinine Ratio 16.3 (12.0-20.0); CO2, Blood 30 mmol/L (21-32); Calcium, Blood 7.4 mg/dL (8.5-10.1); Chloride, Blood 103 mmol/L (98-108); Creatinine, Blood 0.61 mg/dL (0.60-1.20); Glomerular Filtration Rate >60 (60-); Glucose, Blood 100 mg/dL (70-99); Potassium, Blood 3.2 mmol/L (3.5-5.5); Sodium, Blood 139 mmol/L (136-145)
--- NOTE | 2018-10-28 05:50 | NUR ---
SHIFT SUMMARY PT HAS BEEN AWAKE MUCH OF THE NIGHT, FINALLY FELL ASLEEP LATE THIS AM. NO ACUTE EVENTS OVERNIGHT. PT MEDICATED X1 PRN FOR PAIN. PT RECEIVED PRN NEB TREATMENTS DURING THE NIGHT. WILL CONTINUE TO MONITOR.
--- NOTE | 2018-10-28 18:23 | NUR ---
PATIENT UP IN W/C FOR MOST OF THE DAY. 2.5L O2 VIA NC TO MAINTAIN SATS, RT TX'S. DRESSING TO BLE WNL, CHANGING PRN. UP TO CHAIR WITH GAIT BELT AND 2 MAX ASSIST. VSS THIS SHIFT. NO ACUTE CHANGES THIS SHIFT. PLAN IS TO D/C BACK TO [facility] TOMORROW.
[2018-10-29 04:42] LABS: BASOPHILS ABSOLUTE AUTO 0.03 K/mm3 (0.00-0.23); BASOPHILS PERCENT AUTO 0 % (0-2); EOSINOPHILS ABSOLUTE AUTO 0.51 K/mm3 (0.00-0.68); EOSINOPHILS PERCENT AUTO 6 % (0-6); Hematocrit 30.2 % (37.0-53.0); Hemoglobin 9.6 g/dL (13.5-17.5); IMMATURE GRAN ABSOLUTE AUTO 0.15 K/mm3 (0.00-0.10); IMMATURE GRAN PERCENT AUTO 2 % (0-1); LYMPHOCYTES ABSOLUTE AUTO 1.79 K/mm3 (0.84-5.20); LYMPHOCYTES PERCENT AUTO 22 % (21-46); MONOCYTES ABSOLUTE AUTO 1.46 K/mm3 (0.16-1.47); MONOCYTES PERCENT AUTO 18 % (4-13); Mean Corpuscular HGB 25.9 pg (26.0-34.0); Mean Corpuscular HGB Conc 31.8 g/dL (31.5-36.5); Mean Corpuscular Volume 81 fL (80-100); Mean Platelet Volume 9.7 fL (9.1-12.4); NEUTROPHILS ABSOLUTE AUTO 4.11 K/mm3 (1.96-9.15); NEUTROPHILS PERCENT AUTO 51 % (41-73); Platelet Count 157 K/mm3 (150-400); RDW Coefficient Variation 17.4 % (11.7-14.2); RDW Standard Deviation 50.1 fL (35.1-46.3); Red Blood Cell Count 3.71 M/mm3 (4.30-5.90); White Blood Cell Count 8.05 K/mm3 (4.00-11.30)
[2018-10-29 04:53] LABS: Anion Gap 6 mmol/L (6-16); Blood Urea Nitrogen 10 mg/dL (8-24); Bun/Creatinine Ratio 15.7 (12.0-20.0); CO2, Blood 30 mmol/L (21-32); Calcium, Blood 7.5 mg/dL (8.5-10.1); Chloride, Blood 102 mmol/L (98-108); Creatinine, Blood 0.64 mg/dL (0.60-1.20); Glomerular Filtration Rate >60 (60-); Glucose, Blood 105 mg/dL (70-99); Potassium, Blood 3.8 mmol/L (3.5-5.5); Sodium, Blood 138 mmol/L (136-145)
--- NOTE | 2018-10-29 05:50 | NUR ---
SHIFT SUMMARY PT SLEPT FAIR, DRESSING CHANGES DONE TO BILATERAL LOWER EXTREMITIES THIS AM. PT RECEIVED MORE MILK OF MAGNESIA THIS AM TO HELP PROMOTE A BOWEL MOVEMENT. LEGS ELEVATED WITH PILLOWS. NO ACUTE EVENTS NOTED DURING THE NIGHT, WILL CONTINUE TO MONITOR.
--- NOTE | 2018-10-29 10:52 | NUR ---
Pt visit this AM. Pt reports 8/10 pain in his back. He also reports SOB and slight labored breathing noted with a wet non productive cough. Discussed goals of care with Pt. Pt reports his goal is to start feeling better and would like his dyspnea managed. Pt reports at baseline he wears his oxygen only at night. He is currently on 3 L of oxygen. Pt reports at baseline he uses a FWW and standbye assist with ambulation. He also reports needing assistance with bathing and dressing. He also experiences incontinence. Engaged in discussion regarding advanced care planning. Educated Pt on disease process. Encouraged Pt to have routine discussion with his PCP regarding his disease process in order to plan accordingly. Pt reports no other concerns at this time. Spoke with Pt's bedside nurse Bryn and she expresses concerns Pt shows decline with each visit. Bryn reports Pt is experiencing significant weakness and is a 2 person max assist. Palliative Care will remain available for therapeutic visits.
[2018-10-29] MEDS ORDERED: CEFP200 PO (12:12)
[2018-10-29] MEDS ORDERED: DOCU100 PO (12:12)
[2018-10-29] MEDS ORDERED: Banatrol1 EACH PO (12:12)
[2018-10-29] MEDS ORDERED: Lotrimin AF113 GM TOP (12:13)
[2018-10-29] MEDS ORDERED: FURO20 PO (12:13)
[2018-10-29] MEDS ORDERED: LEVOFLOXACIN750 MG PO (12:14)
[2018-10-29] MEDS ORDERED: ONDA4ODT MM (12:14)
[2018-10-29] MEDS ORDERED: Pedi-Dri 100,0060 GM TOP (12:14)
--- NOTE | 2018-10-29 16:17 | NUR ---
DISCHARGE PATIENT DISCHARGED TO [facility] FOR REHAB. REPORT CALLED TO [facility] NURSE. WOUND CARE AND UPDATED PICTURES COMPLETED. IV REMOVED WITHOUT DIFFICULTY. PATIENT TRANSPORTED TO VIA WHEELCHAIR TRANSPORT. DISCHARGE PACKET WITH TRANSPORT DRIVERS.
== END 2018-10-29 15:55 | DRG 871 ==
LOC: ER 07:27 → PCU 10:50 → MEDS 10-24 12:56 → ENPENDDIS 10-28 15:21 → MEDS 10-29 15:55
PROVIDERS: Emergency Medicine; ADMIT Family Medicine
DX: A40.9 Streptococcal sepsis, unspecified (principal); I50.23 Acute on chronic systolic (congestive) heart failure; G93.41 Metabolic encephalopathy; J69.0 Pneumonitis due to inhalation of food and vomit; J96.01 Acute respiratory failure with hypoxia; N39.0 Urinary tract infection, site not specified; E87.1 Hypo-osmolality and hyponatremia; L03.115 Cellulitis of right lower limb; L03.116 Cellulitis of left lower limb; E11.42 Type 2 diabetes mellitus with diabetic polyneuropathy; R65.20 Severe sepsis without septic shock; E78.5 Hyperlipidemia, unspecified; I48.91 Unspecified atrial fibrillation; M19.90 Unspecified osteoarthritis, unspecified site; Z87.891 Personal history of nicotine dependence; Z79.4 Long term (current) use of insulin; E66.9 Obesity, unspecified; Z68.33 Body mass index [BMI] 33.0-33.9, adult; F41.8 Other specified anxiety disorders; Z86.14 Personal history of Methicillin resistant Staphylococcus aureus infection; R26.89 Other abnormalities of gait and mobility; M17.0 Bilateral primary osteoarthritis of knee; I87.2 Venous insufficiency (chronic) (peripheral); G47.33 Obstructive sleep apnea (adult) (pediatric); I35.0 Nonrheumatic aortic (valve) stenosis; E87.6 Hypokalemia; Z79.891 Long term (current) use of opiate analgesic; I11.0 Hypertensive heart disease with heart failure
CPT/HCPCS: 31720; 36415; 51702; 71045; 71046; 80048; 80053; 80202; 81001; 82947; 83605; 83735; 84484; 85025; 87040; 87077; 87086; 87184; 87186; 92526; 92610; 93005; 93010; 93308; 93321; 94640; 94667; 94668; 94760; 94761; 94762; 96365; 96366; 96367; 97110; 97162; 97165; 97530; 99285-25; A9270-GY; J0692; J0744; J1650; J1940; J1956; J2405; J3370; J7030; J7050

== ENCOUNTER 2019-01-05 13:30 | Emergency (ER) | payer MEDICARE, OTHER ==
[~2019-01-05] VITALS: Ht 185.4 cm; Wt 106.6 kg
[~2019-01-05 13:30] MED LIST changes: +ACET325 PO; +ALBU2.5V5 NEB; +ALLERGY CREAM30 GM TOP; +ANTIFUNGAL POWD71 GM; +BISA10S PR; +Banatrol1 EACH PO; +CBD OIL; +CEFP200 PO; +DOCU100 PO; +FURO20 PO; +LEVOFLOXACIN750 MG PO; +Lotrimin AF113 GM TOP; +Milk Of Ma400 MG/5 M PO; +ONDA4ODT MM; +OXYC5 PO; +POTCHL20ER PO; +Pedi-Dri 100,0060 GM TOP; +Senna8.6 MG PO; +TUMS500 MG PO
[2019-01-05 14:06] LABS: BASOPHILS ABSOLUTE AUTO 0.09 K/mm3 (0.00-0.23); BASOPHILS PERCENT AUTO 1 % (0-2); EOSINOPHILS ABSOLUTE AUTO 0.16 K/mm3 (0.00-0.68); EOSINOPHILS PERCENT AUTO 2 % (0-6); Hematocrit 31.9 % (37.0-53.0); Hemoglobin 10.2 g/dL (13.5-17.5); IMMATURE GRAN ABSOLUTE AUTO 0.03 K/mm3 (0.00-0.10); IMMATURE GRAN PERCENT AUTO 0 % (0-1); LYMPHOCYTES ABSOLUTE AUTO 1.59 K/mm3 (0.84-5.20); LYMPHOCYTES PERCENT AUTO 19 % (21-46); MONOCYTES ABSOLUTE AUTO 0.94 K/mm3 (0.16-1.47); MONOCYTES PERCENT AUTO 11 % (4-13); Mean Corpuscular HGB 26.2 pg (26.0-34.0); Mean Corpuscular Volume 82 fL (80-100); NEUTROPHILS ABSOLUTE AUTO 5.71 K/mm3 (1.96-9.15); NEUTROPHILS PERCENT AUTO 67 % (41-73); Platelet Count 341 K/mm3 (150-400); RDW Coefficient Variation 16.9 % (11.7-14.2); RDW Standard Deviation 50.5 fL (35.1-46.3); Red Blood Cell Count 3.89 M/mm3 (4.30-5.90); White Blood Cell Count 8.52 K/mm3 (4.00-11.30)
[2019-01-05 14:16] LABS: Source, Urine Clean Catch
[2019-01-05 14:37] LABS: Appearance, Urine Clear (Clear); Bilirubin, Urine Neg (Neg); Blood, Urine 1+ (Neg); Color, Urine Yellow (P-Yellow); Glucose Qualitative, Urine Neg (Neg); Ketones, Urine Neg (Neg); Leukocyte Esterase, Urine 1+ (Neg); Nitrite, Urine Neg (Neg); Protein, Urine Neg (Neg); Specific Gravity, Urine 1.015 (1.003-1.022); Urobilinogen, Urine NORM (Normal)
[2019-01-05 14:54] LABS: Bacteria Rare /hpf; Red Blood Cells, Urine 0-2 /hpf (0-2); Squamous Epithelial Cells Few /hpf (Few)
[2019-01-05 14:56] LABS: Alanine Aminotransfer (ALT/SGP 14 U/L (12-78); Albumin, Blood 2.9 g/dL (3.4-5.0); Albumin/Globulin Ratio 0.5 (0.8-1.8); Alk Phos 107 U/L (50-136); Anion Gap 6 mmol/L (6-16); Aspartate Aminotrans (AST/SGOT 28 U/L (12-37); Bilirubin, Total 1.3 mg/dL (0.1-1.0); Blood Urea Nitrogen 16 mg/dL (8-24); Bun/Creatinine Ratio 18.6 (12.0-20.0); CO2, Blood 25 mmol/L (21-32); Calcium, Blood 8.7 mg/dL (8.5-10.1); Chloride, Blood 96 mmol/L (98-108); Creatinine, Blood 0.86 mg/dL (0.60-1.20); Globulin, Blood 5.4 g/dL (2.2-4.0); Glomerular Filtration Rate >60 (60-); Glucose, Blood 121 mg/dL (70-99); Potassium, Blood 4.2 mmol/L (3.5-5.5); Sodium, Blood 127 mmol/L (136-145); Total Protein, Blood 8.3 g/dL (6.4-8.2)
== END 2019-01-05 16:54 | disposition home or self-care (01) ==
LOC: ER 13:30
PROVIDERS: Physician Assistant
DX: N43.3 Hydrocele, unspecified (principal); I11.0 Hypertensive heart disease with heart failure; I50.9 Heart failure, unspecified; Z88.0 Allergy status to penicillin; Z91.018 Allergy to other foods; Z88.8 Allergy status to other drugs, medicaments and biological substances; Z79.899 Other long term (current) drug therapy; Z79.4 Long term (current) use of insulin; Z79.891 Long term (current) use of opiate analgesic; E11.9 Type 2 diabetes mellitus without complications; I48.91 Unspecified atrial fibrillation; Z99.81 Dependence on supplemental oxygen; Z87.891 Personal history of nicotine dependence
CPT/HCPCS: 36415; 76870; 80053; 81001; 83880; 85025; 87086; 93005; 93010; 99284-25

== ENCOUNTER 2019-01-08 00:17 | Day surgery (SDC) | payer MEDICARE, OTHER | END 2019-01-08 22:41 | disposition home or self-care (01) | LOC: WOUND | DX: E11.621 Type 2 diabetes mellitus with foot ulcer (principal); E11.622 Type 2 diabetes mellitus with other skin ulcer; L97.511 Non-pressure chronic ulcer of other part of right foot limited to breakdown of skin; L97.521 Non-pressure chronic ulcer of other part of left foot limited to breakdown of skin; L97.821 Non-pressure chronic ulcer of other part of left lower leg limited to breakdown of skin; L97.811 Non-pressure chronic ulcer of other part of right lower leg limited to breakdown of skin; E11.51 Type 2 diabetes mellitus with diabetic peripheral angiopathy without gangrene; I73.9 Peripheral vascular disease, unspecified; I87.2 Venous insufficiency (chronic) (peripheral); I13.0 Hypertensive heart and chronic kidney disease with heart failure and stage 1 through stage 4 chronic kidney disease, or unspecified chronic kidney disease; E11.22 Type 2 diabetes mellitus with diabetic chronic kidney disease; I50.20 Unspecified systolic (congestive) heart failure; N18.2 Chronic kidney disease, stage 2 (mild); I48.91 Unspecified atrial fibrillation; J44.9 Chronic obstructive pulmonary disease, unspecified; G47.33 Obstructive sleep apnea (adult) (pediatric) | CPT/HCPCS: 99152; G0463 ==

== ENCOUNTER 2019-01-10 12:35 | Day surgery (SDC) | payer MEDICARE, OTHER | END 2019-01-10 22:44 | disposition home or self-care (01) | LOC: WOUND 12:35 | DX: E11.621 Type 2 diabetes mellitus with foot ulcer (principal); E11.622 Type 2 diabetes mellitus with other skin ulcer; L97.511 Non-pressure chronic ulcer of other part of right foot limited to breakdown of skin; L97.521 Non-pressure chronic ulcer of other part of left foot limited to breakdown of skin; L97.821 Non-pressure chronic ulcer of other part of left lower leg limited to breakdown of skin; L97.811 Non-pressure chronic ulcer of other part of right lower leg limited to breakdown of skin; E11.51 Type 2 diabetes mellitus with diabetic peripheral angiopathy without gangrene; I73.9 Peripheral vascular disease, unspecified; I87.2 Venous insufficiency (chronic) (peripheral); I13.0 Hypertensive heart and chronic kidney disease with heart failure and stage 1 through stage 4 chronic kidney disease, or unspecified chronic kidney disease; E11.22 Type 2 diabetes mellitus with diabetic chronic kidney disease; I50.20 Unspecified systolic (congestive) heart failure; N18.2 Chronic kidney disease, stage 2 (mild); I48.91 Unspecified atrial fibrillation; J44.9 Chronic obstructive pulmonary disease, unspecified; G47.33 Obstructive sleep apnea (adult) (pediatric) ==

== ENCOUNTER 2019-01-20 13:42 | Emergency (ER) | payer MEDICARE, OTHER ==
[~2019-01-20] VITALS: Ht 185.4 cm; Wt 99.8 kg
[2019-01-20 14:33] LABS: BASOPHILS ABSOLUTE AUTO 0.07 K/mm3 (0.00-0.23); BASOPHILS PERCENT AUTO 1 % (0-2); EOSINOPHILS ABSOLUTE AUTO 0.19 K/mm3 (0.00-0.68); EOSINOPHILS PERCENT AUTO 4 % (0-6); Hematocrit 30.3 % (37.0-53.0); Hemoglobin 9.7 g/dL (13.5-17.5); IMMATURE GRAN ABSOLUTE AUTO 0.04 K/mm3 (0.00-0.10); IMMATURE GRAN PERCENT AUTO 1 % (0-1); LYMPHOCYTES ABSOLUTE AUTO 1.44 K/mm3 (0.84-5.20); LYMPHOCYTES PERCENT AUTO 28 % (21-46); MONOCYTES PERCENT AUTO 13 % (4-13); Mean Corpuscular HGB 25.8 pg (26.0-34.0); Mean Corpuscular Volume 81 fL (80-100); Mean Platelet Volume 9.3 fL (9.1-12.4); NEUTROPHILS PERCENT AUTO 53 % (41-73); Platelet Count 299 K/mm3 (150-400); RDW Coefficient Variation 15.9 % (11.7-14.2); RDW Standard Deviation 46.2 fL (35.1-46.3); Red Blood Cell Count 3.76 M/mm3 (4.30-5.90); White Blood Cell Count 5.24 K/mm3 (4.00-11.30)
[2019-01-20 14:50] LABS: Alanine Aminotransfer (ALT/SGP 11 U/L (12-78); Albumin, Blood 2.9 g/dL (3.4-5.0); Albumin/Globulin Ratio 0.5 (0.8-1.8); Alk Phos 122 U/L (50-136); Anion Gap 7 mmol/L (6-16); Aspartate Aminotrans (AST/SGOT 28 U/L (12-37); Bilirubin, Total 0.8 mg/dL (0.1-1.0); Blood Urea Nitrogen 26 mg/dL (8-24); Bun/Creatinine Ratio 29.2 (12.0-20.0); CO2, Blood 30 mmol/L (21-32); Calcium, Blood 8.8 mg/dL (8.5-10.1); Chloride, Blood 95 mmol/L (98-108); Creatinine, Blood 0.89 mg/dL (0.60-1.20); Globulin, Blood 5.5 g/dL (2.2-4.0); Glomerular Filtration Rate >60 (60-); Glucose, Blood 169 mg/dL (70-99); Potassium, Blood 3.4 mmol/L (3.5-5.5); Sodium, Blood 132 mmol/L (136-145); Total Protein, Blood 8.4 g/dL (6.4-8.2); Troponin I <0.015 ng/mL (0.000-0.040)
[2019-01-20] MEDS ORDERED: LIDO700A20 TOP (18:33)
[2019-01-20] MEDS ORDERED: Roxicodone5 MG PO (18:33)
== END 2019-01-20 19:15 | disposition home or self-care (01) ==
LOC: ER 13:42
PROVIDERS: Internal Medicine
DX: S20.211A Contusion of right front wall of thorax, initial encounter (principal); E87.6 Hypokalemia; W06.XXXA Fall from bed, initial encounter; E11.40 Type 2 diabetes mellitus with diabetic neuropathy, unspecified; I13.0 Hypertensive heart and chronic kidney disease with heart failure and stage 1 through stage 4 chronic kidney disease, or unspecified chronic kidney disease; E11.22 Type 2 diabetes mellitus with diabetic chronic kidney disease; N18.9 Chronic kidney disease, unspecified; I50.9 Heart failure, unspecified; I48.2 Chronic atrial fibrillation; M19.90 Unspecified osteoarthritis, unspecified site; K21.9 Gastro-esophageal reflux disease without esophagitis; F32.9 Major depressive disorder, single episode, unspecified; Z87.891 Personal history of nicotine dependence; Z88.0 Allergy status to penicillin; Z91.018 Allergy to other foods; Z91.048 Other nonmedicinal substance allergy status; Z79.899 Other long term (current) drug therapy; Z79.891 Long term (current) use of opiate analgesic; Z79.4 Long term (current) use of insulin
CPT/HCPCS: 36415; 71046; 80053; 83880; 84484; 85025; 93005; 93010; 99284-25

== ENCOUNTER 2019-01-29 02:53 | Emergency (ER) | payer MEDICARE, OTHER ==
[~2019-01-29] VITALS: Ht 185.4 cm; Wt 99.8 kg
[~2019-01-29 02:53] MED LIST changes: +Roxicodone5 MG PO
[2019-01-29 03:13] LABS: BASOPHILS ABSOLUTE AUTO 0.06 K/mm3 (0.00-0.23); BASOPHILS PERCENT AUTO 1 % (0-2); EOSINOPHILS ABSOLUTE AUTO 0.04 K/mm3 (0.00-0.68); EOSINOPHILS PERCENT AUTO 0 % (0-6); Hematocrit 29.6 % (37.0-53.0); Hemoglobin 9.5 g/dL (13.5-17.5); IMMATURE GRAN ABSOLUTE AUTO 0.06 K/mm3 (0.00-0.10); IMMATURE GRAN PERCENT AUTO 1 % (0-1); LYMPHOCYTES ABSOLUTE AUTO 1.36 K/mm3 (0.84-5.20); LYMPHOCYTES PERCENT AUTO 14 % (21-46); MONOCYTES ABSOLUTE AUTO 1.36 K/mm3 (0.16-1.47); MONOCYTES PERCENT AUTO 14 % (4-13); Mean Corpuscular HGB 25.9 pg (26.0-34.0); Mean Corpuscular HGB Conc 32.1 g/dL (31.5-36.5); Mean Corpuscular Volume 81 fL (80-100); NEUTROPHILS ABSOLUTE AUTO 7.14 K/mm3 (1.96-9.15); NEUTROPHILS PERCENT AUTO 71 % (41-73); Platelet Count 327 K/mm3 (150-400); RDW Coefficient Variation 15.3 % (11.7-14.2); RDW Standard Deviation 44.8 fL (35.1-46.3); Red Blood Cell Count 3.67 M/mm3 (4.30-5.90); White Blood Cell Count 10.02 K/mm3 (4.00-11.30)
[2019-01-29 03:33] LABS: Alanine Aminotransfer (ALT/SGP 11 U/L (12-78); Albumin, Blood 2.7 g/dL (3.4-5.0); Albumin/Globulin Ratio 0.5 (0.8-1.8); Alk Phos 108 U/L (50-136); Anion Gap 9 mmol/L (6-16); Aspartate Aminotrans (AST/SGOT 18 U/L (12-37); Bilirubin, Total 1.6 mg/dL (0.1-1.0); Blood Urea Nitrogen 32 mg/dL (8-24); Bun/Creatinine Ratio 33.1 (12.0-20.0); CO2, Blood 29 mmol/L (21-32); Calcium, Blood 7.9 mg/dL (8.5-10.1); Chloride, Blood 89 mmol/L (98-108); Creatinine, Blood 0.97 mg/dL (0.60-1.20); Globulin, Blood 5.1 g/dL (2.2-4.0); Glomerular Filtration Rate >60 (60-); Glucose, Blood 178 mg/dL (70-99); Potassium, Blood 3.1 mmol/L (3.5-5.5); Sodium, Blood 127 mmol/L (136-145); Total Protein, Blood 7.8 g/dL (6.4-8.2)
[2019-01-29 07:53] LABS: Source, Urine Clean Catch
[2019-01-29 08:05] LABS: Bilirubin, Urine Neg (Neg); Blood, Urine 1+ (Neg); Glucose Qualitative, Urine Neg (Neg); Ketones, Urine Neg (Neg); Leukocyte Esterase, Urine 3+ (Neg); Nitrite, Urine Neg (Neg); Protein, Urine Neg (Neg); Urobilinogen, Urine NORM (Normal)
[2019-01-29 08:13] LABS: Color, Urine Yellow (P-Yellow)
[2019-01-29 08:14] LABS: Appearance, Urine Clear (Clear)
[2019-01-29 08:15] LABS: Red Blood Cells, Urine 0-2 /hpf (0-2); White Blood Cells, Urine 25-50 /hpf (0-5)
[2019-01-29 08:20] LABS: Bacteria Rare /hpf; Squamous Epithelial Cells Not Seen /hpf (Few)
[2019-01-29] MEDS ORDERED: Bactrim Ds Tab1 EACH PO (08:56)
== END 2019-01-29 10:41 | disposition home or self-care (01) ==
LOC: ER 02:53
PROVIDERS: Emergency Medicine
DX: N39.0 Urinary tract infection, site not specified (principal); Z88.0 Allergy status to penicillin; Z91.018 Allergy to other foods; Z79.899 Other long term (current) drug therapy; Z79.4 Long term (current) use of insulin; Z79.891 Long term (current) use of opiate analgesic; E11.9 Type 2 diabetes mellitus without complications; I10 Essential (primary) hypertension; I48.91 Unspecified atrial fibrillation; Z87.891 Personal history of nicotine dependence
CPT/HCPCS: 74176; 76705; 80053; 81001; 83690; 85025; 87077; 87086; 87186; 96361; 96374; 96375; 96376; 99284-25; J1170; J2405; J7030

== ENCOUNTER 2019-02-08 15:00 | Day surgery (SDC) | payer MEDICARE, OTHER ==
[~2019-02-08 15:00] MED LIST changes: +Bactrim Ds Tab1 EACH PO
== END 2019-02-08 23:00 | disposition home or self-care (01) ==
LOC: WOUND
DX: E11.622 Type 2 diabetes mellitus with other skin ulcer (principal); L97.821 Non-pressure chronic ulcer of other part of left lower leg limited to breakdown of skin; L97.811 Non-pressure chronic ulcer of other part of right lower leg limited to breakdown of skin; E11.51 Type 2 diabetes mellitus with diabetic peripheral angiopathy without gangrene; I87.2 Venous insufficiency (chronic) (peripheral); G47.33 Obstructive sleep apnea (adult) (pediatric); I13.0 Hypertensive heart and chronic kidney disease with heart failure and stage 1 through stage 4 chronic kidney disease, or unspecified chronic kidney disease; I50.20 Unspecified systolic (congestive) heart failure; E11.22 Type 2 diabetes mellitus with diabetic chronic kidney disease; N18.2 Chronic kidney disease, stage 2 (mild); J44.9 Chronic obstructive pulmonary disease, unspecified

== ENCOUNTER 2019-02-11 07:21 | Day surgery (SDC) | payer MEDICARE, OTHER | END 2019-02-11 22:40 | disposition home or self-care (01) | LOC: WOUND | DX: E11.622 Type 2 diabetes mellitus with other skin ulcer (principal); L97.821 Non-pressure chronic ulcer of other part of left lower leg limited to breakdown of skin; L97.811 Non-pressure chronic ulcer of other part of right lower leg limited to breakdown of skin; E11.51 Type 2 diabetes mellitus with diabetic peripheral angiopathy without gangrene; I73.9 Peripheral vascular disease, unspecified; I87.2 Venous insufficiency (chronic) (peripheral); I13.0 Hypertensive heart and chronic kidney disease with heart failure and stage 1 through stage 4 chronic kidney disease, or unspecified chronic kidney disease; E11.22 Type 2 diabetes mellitus with diabetic chronic kidney disease; N18.3 Chronic kidney disease, stage 3 (moderate); I50.20 Unspecified systolic (congestive) heart failure; I48.91 Unspecified atrial fibrillation; J44.9 Chronic obstructive pulmonary disease, unspecified ==

== ENCOUNTER 2019-02-18 12:55 | Emergency (ER) | payer MEDICARE, OTHER ==
[~2019-02-18] VITALS: Ht 182.9 cm; Wt 102.1 kg
[2019-02-18 13:48] LABS: BASOPHILS ABSOLUTE AUTO 0.09 K/mm3 (0.00-0.23); BASOPHILS PERCENT AUTO 2 % (0-2); EOSINOPHILS PERCENT AUTO 0 % (0-6); Hemoglobin 9.1 g/dL (13.5-17.5); IMMATURE GRAN ABSOLUTE AUTO 0.03 K/mm3 (0.00-0.10); IMMATURE GRAN PERCENT AUTO 1 % (0-1); LYMPHOCYTES ABSOLUTE AUTO 1.35 K/mm3 (0.84-5.20); LYMPHOCYTES PERCENT AUTO 25 % (21-46); MONOCYTES ABSOLUTE AUTO 0.79 K/mm3 (0.16-1.47); MONOCYTES PERCENT AUTO 15 % (4-13); Mean Corpuscular HGB 24.8 pg (26.0-34.0); Mean Corpuscular HGB Conc 31.4 g/dL (31.5-36.5); Mean Corpuscular Volume 79 fL (80-100); NEUTROPHILS ABSOLUTE AUTO 3.18 K/mm3 (1.96-9.15); NEUTROPHILS PERCENT AUTO 58 % (41-73); Platelet Count 276 K/mm3 (150-400); RDW Coefficient Variation 14.6 % (11.7-14.2); Red Blood Cell Count 3.67 M/mm3 (4.30-5.90); White Blood Cell Count 5.44 K/mm3 (4.00-11.30)
[2019-02-18 14:04] LABS: Alanine Aminotransfer (ALT/SGP 11 U/L (12-78); Albumin, Blood 2.8 g/dL (3.4-5.0); Albumin/Globulin Ratio 0.5 (0.8-1.8); Alk Phos 130 U/L (50-136); Anion Gap 6 mmol/L (6-16); Aspartate Aminotrans (AST/SGOT 20 U/L (12-37); Bilirubin, Total 0.9 mg/dL (0.1-1.0); Blood Urea Nitrogen 33 mg/dL (8-24); Bun/Creatinine Ratio 35.7 (12.0-20.0); CO2, Blood 28 mmol/L (21-32); Calcium, Blood 8.6 mg/dL (8.5-10.1); Chloride, Blood 96 mmol/L (98-108); Creatinine, Blood 0.93 mg/dL (0.60-1.20); Globulin, Blood 5.6 g/dL (2.2-4.0); Glomerular Filtration Rate >60 (60-); Glucose, Blood 146 mg/dL (70-99); Potassium, Blood 3.4 mmol/L (3.5-5.5); Sodium, Blood 130 mmol/L (136-145); Total Protein, Blood 8.4 g/dL (6.4-8.2)
[2019-02-18] MEDS ORDERED: Bactrim Ds Tab1 EACH PO (15:22)
== END 2019-02-18 16:26 | disposition home or self-care (01) ==
LOC: ER 12:55
PROVIDERS: Emergency Medicine
DX: L03.115 Cellulitis of right lower limb (principal); L03.116 Cellulitis of left lower limb; I13.0 Hypertensive heart and chronic kidney disease with heart failure and stage 1 through stage 4 chronic kidney disease, or unspecified chronic kidney disease; E11.22 Type 2 diabetes mellitus with diabetic chronic kidney disease; N18.9 Chronic kidney disease, unspecified; I50.9 Heart failure, unspecified; E11.40 Type 2 diabetes mellitus with diabetic neuropathy, unspecified; Z88.0 Allergy status to penicillin; Z91.018 Allergy to other foods; Z91.048 Other nonmedicinal substance allergy status; Z79.899 Other long term (current) drug therapy; Z79.4 Long term (current) use of insulin; I48.91 Unspecified atrial fibrillation; K21.9 Gastro-esophageal reflux disease without esophagitis; F32.9 Major depressive disorder, single episode, unspecified; Z87.891 Personal history of nicotine dependence
CPT/HCPCS: 36415; 80053; 83605; 85025; 87040; 96374; 96375; 99284-25; J1170; J2405

== ENCOUNTER 2019-02-27 00:33 | Day surgery (SDC) | payer MEDICARE, OTHER | END 2019-02-27 22:55 | disposition home or self-care (01) | LOC: WOUND | DX: E11.622 Type 2 diabetes mellitus with other skin ulcer (principal); L97.821 Non-pressure chronic ulcer of other part of left lower leg limited to breakdown of skin; L97.811 Non-pressure chronic ulcer of other part of right lower leg limited to breakdown of skin; L97.322 Non-pressure chronic ulcer of left ankle with fat layer exposed; E11.621 Type 2 diabetes mellitus with foot ulcer; L97.519 Non-pressure chronic ulcer of other part of right foot with unspecified severity; L97.529 Non-pressure chronic ulcer of other part of left foot with unspecified severity; I87.2 Venous insufficiency (chronic) (peripheral); G47.33 Obstructive sleep apnea (adult) (pediatric); I13.0 Hypertensive heart and chronic kidney disease with heart failure and stage 1 through stage 4 chronic kidney disease, or unspecified chronic kidney disease; I50.20 Unspecified systolic (congestive) heart failure; E11.22 Type 2 diabetes mellitus with diabetic chronic kidney disease; N18.3 Chronic kidney disease, stage 3 (moderate); E66.9 Obesity, unspecified; J44.9 Chronic obstructive pulmonary disease, unspecified; E11.51 Type 2 diabetes mellitus with diabetic peripheral angiopathy without gangrene; M54.9 Dorsalgia, unspecified; G89.29 Other chronic pain; Z68.28 Body mass index [BMI] 28.0-28.9, adult ==

== ENCOUNTER 2019-03-06 00:35 | Day surgery (SDC) | payer MEDICARE, OTHER | END 2019-03-06 22:44 | disposition home or self-care (01) | LOC: WOUND 00:35 | DX: E11.622 Type 2 diabetes mellitus with other skin ulcer (principal); E11.621 Type 2 diabetes mellitus with foot ulcer; L97.821 Non-pressure chronic ulcer of other part of left lower leg limited to breakdown of skin; L97.322 Non-pressure chronic ulcer of left ankle with fat layer exposed; L97.512 Non-pressure chronic ulcer of other part of right foot with fat layer exposed; L97.811 Non-pressure chronic ulcer of other part of right lower leg limited to breakdown of skin; L97.529 Non-pressure chronic ulcer of other part of left foot with unspecified severity; I87.2 Venous insufficiency (chronic) (peripheral); E11.51 Type 2 diabetes mellitus with diabetic peripheral angiopathy without gangrene; I73.9 Peripheral vascular disease, unspecified; I13.0 Hypertensive heart and chronic kidney disease with heart failure and stage 1 through stage 4 chronic kidney disease, or unspecified chronic kidney disease; E11.22 Type 2 diabetes mellitus with diabetic chronic kidney disease; N18.2 Chronic kidney disease, stage 2 (mild); I50.20 Unspecified systolic (congestive) heart failure; G47.33 Obstructive sleep apnea (adult) (pediatric) | CPT/HCPCS: 87071; 87075; 87186; 87205 ==

== ENCOUNTER → 2019-03-07 | Outpatient (CLI) | payer MEDICARE, OTHER ==
[~2019-03-07] MED LIST changes: +Benadryl Itch28.3 G1 TOP; +Vsl#3 Capsule1 EACH PO
== END ==
LOC: LAB SHORT 19:26 → LAB 19:26
DX: N39.0 Urinary tract infection, site not specified (principal)
CPT/HCPCS: 87077; 87086; 87186

== ENCOUNTER 2019-03-13 00:24 | Day surgery (SDC) | payer MEDICARE, OTHER ==
[~2019-03-13 00:24] MED LIST changes: -Benadryl Itch28.3 G1 TOP; -Vsl#3 Capsule1 EACH PO
== END 2019-03-13 22:38 | disposition home or self-care (01) ==
LOC: WOUND 00:24
DX: E11.622 Type 2 diabetes mellitus with other skin ulcer (principal); L97.821 Non-pressure chronic ulcer of other part of left lower leg limited to breakdown of skin; L97.811 Non-pressure chronic ulcer of other part of right lower leg limited to breakdown of skin; E11.51 Type 2 diabetes mellitus with diabetic peripheral angiopathy without gangrene; I73.9 Peripheral vascular disease, unspecified
CPT/HCPCS: G0463

== ENCOUNTER 2019-03-20 00:24 | Day surgery (SDC) | payer MEDICARE, OTHER ==
[2019-03-21] MEDS ORDERED: METF500 PO (11:13)
[2019-03-21] MEDS ORDERED: METO5 PO (11:16)
== END 2019-03-20 23:02 | disposition home or self-care (01) ==
LOC: WOUND 00:24
DX: E11.622 Type 2 diabetes mellitus with other skin ulcer (principal); L97.821 Non-pressure chronic ulcer of other part of left lower leg limited to breakdown of skin; L97.811 Non-pressure chronic ulcer of other part of right lower leg limited to breakdown of skin; L97.812 Non-pressure chronic ulcer of other part of right lower leg with fat layer exposed; I13.0 Hypertensive heart and chronic kidney disease with heart failure and stage 1 through stage 4 chronic kidney disease, or unspecified chronic kidney disease; I50.20 Unspecified systolic (congestive) heart failure; N18.2 Chronic kidney disease, stage 2 (mild); E11.51 Type 2 diabetes mellitus with diabetic peripheral angiopathy without gangrene; M54.9 Dorsalgia, unspecified; G89.29 Other chronic pain; J44.9 Chronic obstructive pulmonary disease, unspecified; E66.9 Obesity, unspecified; G47.33 Obstructive sleep apnea (adult) (pediatric); Z68.28 Body mass index [BMI] 28.0-28.9, adult
CPT/HCPCS: 36415; 80048; 85025; 85610; G0463

== ENCOUNTER 2019-03-21 09:56 | Day surgery (SDC) | payer MEDICARE, OTHER ==
[~2019-03-21] VITALS: Ht 185.4 cm; Wt 102.0 kg
--- NOTE | 2019-03-21 08:08 | NUR ---
SPOKE WITH PATIENT SON REGARDING CRITICAL LAB RESULTS (2.8 k+). PER DR COELHO PT WILL TAKE K-DUR 30MEQ THIS AM AND REPEAT CHEMISTRY WHEN PT ARRIVES FOR HIS PROCEDURE THIS AM (PERIPHERAL). PT HAS BEEN HOLDING HIS K-DUR X 1 DAY (TAKES 30MEQ AM AND 15MEQ PM NORMALLY) DUE TO A DENTAL PROCEDURE YESTERDAY. SON VERBALIZES UNDERSTANDING.
[2019-03-21] MEDS ORDERED: METF500 PO (11:13)
[2019-03-21] MEDS ORDERED: METO5 PO (11:16)
[2019-03-21 11:38] LABS: Anion Gap 8 mmol/L (6-16); Blood Urea Nitrogen 26 mg/dL (8-24); Bun/Creatinine Ratio 26.8 (12.0-20.0); CO2, Blood 32 mmol/L (21-32); Calcium, Blood 9.2 mg/dL (8.5-10.1); Chloride, Blood 93 mmol/L (98-108); Creatinine, Blood 0.97 mg/dL (0.60-1.20); Glomerular Filtration Rate >60 (60-); Glucose, Blood 101 mg/dL (70-99); Potassium, Blood 3.4 mmol/L (3.5-5.5); Sodium, Blood 133 mmol/L (136-145)
--- NOTE | 2019-03-21 17:16 | NUR ---
PT DISCHARGE GONE OVER WITH PT AND FAMILY, BOTH VERBALIZE UNDERSTANDING.PT LEFT FEM SITE WITHOUT HEMATOMA, SWELLING, OR TENDERNESS UPON DISCHARGE. DISCUSSED WITH FAMILY WHAT TO WATCH FOR AND IF BLEEDING SHOULD OCCUR TO HOLD FIRM PRESSURE. PT DISCHARGED PER W/C TO PRIVATE VEHICLE WITH STAFF.
== END 2019-03-21 17:05 | disposition home or self-care (01) ==
LOC: MHTC 09:56
PROVIDERS: Radiology Diagnostic Radiology
DX: I70.238 Atherosclerosis of native arteries of right leg with ulceration of other part of lower leg (principal); L97.818 Non-pressure chronic ulcer of other part of right lower leg with other specified severity; I87.2 Venous insufficiency (chronic) (peripheral); I50.9 Heart failure, unspecified; I48.91 Unspecified atrial fibrillation; N18.3 Chronic kidney disease, stage 3 (moderate); L97.829 Non-pressure chronic ulcer of other part of left lower leg with unspecified severity
CPT/HCPCS: 36415; 37228; 37232; 75625; 75716; 75774; 80048; 85347; 99152; 99153; C1725; C1760; C1769; C1887; C1894; J1644; J2250; J3010; J7030; Q9967

== ENCOUNTER 2019-03-25 00:25 | Day surgery (SDC) | payer MEDICARE, OTHER | END 2019-03-25 22:40 | disposition home or self-care (01) | LOC: WOUND 00:25 | DX: E11.622 Type 2 diabetes mellitus with other skin ulcer (principal); L97.821 Non-pressure chronic ulcer of other part of left lower leg limited to breakdown of skin; L97.811 Non-pressure chronic ulcer of other part of right lower leg limited to breakdown of skin; E11.621 Type 2 diabetes mellitus with foot ulcer; L97.511 Non-pressure chronic ulcer of other part of right foot limited to breakdown of skin; E11.22 Type 2 diabetes mellitus with diabetic chronic kidney disease; I12.9 Hypertensive chronic kidney disease with stage 1 through stage 4 chronic kidney disease, or unspecified chronic kidney disease; N18.2 Chronic kidney disease, stage 2 (mild); M54.9 Dorsalgia, unspecified; G89.29 Other chronic pain; E66.9 Obesity, unspecified; E11.51 Type 2 diabetes mellitus with diabetic peripheral angiopathy without gangrene; J44.9 Chronic obstructive pulmonary disease, unspecified; Z68.28 Body mass index [BMI] 28.0-28.9, adult ==

== ENCOUNTER 2019-03-28 21:34 | Inpatient (IN) | payer MEDICARE, OTHER ==
[~2019-03-28] VITALS: Ht 182.9 cm; Wt 106.5 kg
[2019-03-28 22:21] LABS: BASOPHILS ABSOLUTE AUTO 0.08 K/mm3 (0.00-0.23); BASOPHILS PERCENT AUTO 1 % (0-2); EOSINOPHILS ABSOLUTE AUTO 0.36 K/mm3 (0.00-0.68); EOSINOPHILS PERCENT AUTO 5 % (0-6); Hematocrit 30.2 % (37.0-53.0); Hemoglobin 9.2 g/dL (13.5-17.5); IMMATURE GRAN ABSOLUTE AUTO 0.04 K/mm3 (0.00-0.10); IMMATURE GRAN PERCENT AUTO 1 % (0-1); LYMPHOCYTES ABSOLUTE AUTO 1.21 K/mm3 (0.84-5.20); LYMPHOCYTES PERCENT AUTO 17 % (21-46); MONOCYTES ABSOLUTE AUTO 0.82 K/mm3 (0.16-1.47); MONOCYTES PERCENT AUTO 12 % (4-13); Mean Corpuscular HGB 24.1 pg (26.0-34.0); Mean Corpuscular HGB Conc 30.5 g/dL (31.5-36.5); Mean Corpuscular Volume 79 fL (80-100); Mean Platelet Volume 8.8 fL (9.1-12.4); NEUTROPHILS ABSOLUTE AUTO 4.49 K/mm3 (1.96-9.15); NEUTROPHILS PERCENT AUTO 64 % (41-73); Platelet Count 273 K/mm3 (150-400); RDW Coefficient Variation 15.5 % (11.7-14.2); RDW Standard Deviation 44.7 fL (35.1-46.3); Red Blood Cell Count 3.81 M/mm3 (4.30-5.90)
[2019-03-28 22:32] LABS: Albumin, Blood 2.9 g/dL (3.4-5.0); Albumin/Globulin Ratio 0.5 (0.8-1.8); Bilirubin, Total 0.7 mg/dL (0.1-1.0); Bun/Creatinine Ratio 23.4 (12.0-20.0); Calcium, Blood 8.3 mg/dL (8.5-10.1); Creatinine, Blood 1.28 mg/dL (0.60-1.20); Globulin, Blood 5.9 g/dL (2.2-4.0); Potassium, Blood 3.7 mmol/L (3.5-5.5); Total Protein, Blood 8.8 g/dL (6.4-8.2)
[2019-03-29 03:19] LABS: BASOPHILS PERCENT AUTO 1 % (0-2); EOSINOPHILS ABSOLUTE AUTO 0.43 K/mm3 (0.00-0.68); EOSINOPHILS PERCENT AUTO 5 % (0-6); Hematocrit 28.7 % (37.0-53.0); Hemoglobin 8.8 g/dL (13.5-17.5); IMMATURE GRAN ABSOLUTE AUTO 0.05 K/mm3 (0.00-0.10); IMMATURE GRAN PERCENT AUTO 1 % (0-1); LYMPHOCYTES ABSOLUTE AUTO 1.43 K/mm3 (0.84-5.20); LYMPHOCYTES PERCENT AUTO 18 % (21-46); MONOCYTES ABSOLUTE AUTO 0.87 K/mm3 (0.16-1.47); MONOCYTES PERCENT AUTO 11 % (4-13); Mean Corpuscular HGB 24.2 pg (26.0-34.0); Mean Corpuscular HGB Conc 30.7 g/dL (31.5-36.5); Mean Corpuscular Volume 79 fL (80-100); Mean Platelet Volume 8.3 fL (9.1-12.4); NEUTROPHILS ABSOLUTE AUTO 5.04 K/mm3 (1.96-9.15); NEUTROPHILS PERCENT AUTO 64 % (41-73); Platelet Count 265 K/mm3 (150-400); RDW Coefficient Variation 15.4 % (11.7-14.2); RDW Standard Deviation 44.1 fL (35.1-46.3); Red Blood Cell Count 3.63 M/mm3 (4.30-5.90); White Blood Cell Count 7.92 K/mm3 (4.00-11.30)
[2019-03-29 03:35] LABS: Bun/Creatinine Ratio 23.7 (12.0-20.0); Calcium, Blood 8.2 mg/dL (8.5-10.1); Creatinine, Blood 1.35 mg/dL (0.60-1.20); Potassium, Blood 4.1 mmol/L (3.5-5.5)
--- NOTE | 2019-03-29 04:16 | NUR ---
PATIENT IS A NEW ADMIT FROM THE ED. AXOX 3 AND ONE ASSIST. THREE PERSON TRANSFER FROM [facility] TO BED. CELLULITIS OF BLE. OLD WOUND DRESSINGS REMOVED AND WOUNDS PHOTOGRAPH. PRESSURE ULCER ON COCCYX PHOTOGRAPH AND IN CHART. NEW DRESSING APPLIED TO BLE. PIV REMAINS INTACT. REPORTED PAIN OF BLE AND DILAUDID IV 0.6 MG GIVEN PER EMAR. VSS/AFEBRLE. DENIES SOB AND N/V. LACTIC ACID REDUCED FROM 2.4 TO 1.6. USES URINAL AT BS. PATIENT ORIENT TO ROOM AND CALL LIGHT SYSTEM. PATIENT READY TO SLEEP. CALL LIGHT IN REACH. BED IN LOWEST POSITION. WILL CONTINUE TO MONITOR.
--- NOTE | 2019-03-29 05:28 | NUR ---
CONSULT CALLED TO DR Bosch ANSWERING SERVICE X THREE AND BUSY SIGNAL EACH TIME. WILL PASS ON TO DAY RN IF UNABLE TO GET THROUGH.
--- NOTE | 2019-03-29 10:46 | NUR ---
Spiritual care visit conducted. Patient is lying in bed and resting. Once I engage patient in a conversation I realize that he can't keep his eyes open for mope than a few minutes but is able to listen even with his eyes closed. Patient admits to being very sleepy. I make my visit short. I provide spiritual guidance and prayer. Patient responds well and voices appreciation for the visit. I will continue to remain available to patient and family.
--- NOTE | 2019-03-29 18:34 | NUR ---
SHIFT SUMMARY PATIENT IS PLEASANT. NO ACUTE CONCERNS PER PATIENT. HE IS UP IN THE CHAIR ONE PERSON ASSIST STAND AND PIVOT TO THE CHAIR OR TO THE BED. PATIENT HAS USED THE URINAL AND CALLED APPROPRIATELY. PAIN MEDICATION IS LASTING THE PATIENT AROUND 6 HOURS AT A TIME.
--- NOTE | 2019-03-30 18:28 | NUR ---
SHIFT SUMMARY PATIENT IS VERY TEARFUL ABOUT THE PAIN IN HIS FEET. HE HAS BEEN SWITCHED FROM DILAUDID TO OXYCODONE. HE CAN GET FROM THE BED TO THE CHAIR WITH ONE PERSON ASSIST. HE USES A WALKER AT HOME. TODAY HE HAS BEEN DOING WELL.
--- NOTE | 2019-03-31 05:34 | NUR ---
3D ARTIST SUMMARY PATIENT VERY AGITATED EARLY IN EVENING. UPSET HE WAS NOT ABLE TO CONTINUE WITH HIS DAY PREVIOUS PAIN REGIMEN. ALTERNATIVE METHODS OF PAIN RELIEF OFFERED TO PATIENT SUCH COLD PACK OR WARM BLANKETS, DIVERSION. PATIENT ENJOYED WARM BLANKETS OVER FOOT CRADLE FOR A WHILE. DRESSINGS CHANGED ON FEET AT HS. LOTS OF MACERATED PEELING SKIN REMOVED FROM DORSAL SURFACE OF FEET. ESPECIALLY LEFT FOOT. PATIENT TOLERATED WELL. VASELINE GAUZE PLACED BETWEEN TOES AND ON DORSAL SURFACE OF FEET TO PREVENT STICKING OF ABD OR KERLIX.
--- NOTE | 2019-03-31 12:19 | NUR ---
Pt visit this afternoon. Pt resting in bed and is A&OX4. Pt is known to this selling underwriter from previous visits. Listened as Pt reports being optomistic of his health. He states worse case scenario he will take things one step at a time. Pt reports still living at home with his and daughter. Pt reports his goal is to not have to have an amputation but will take it one step at a time. Discussed the current health and the importance of usp planning. He states he knows there is the possibility of needing to be placed in an assisted living facility sometime in the future but does not want to jump to far ahead. Also discussed AD/POLST with Pt. Pt denies need to complete and states "I want everything done". Pt reports no concerns at this time. Palliative Care will remain available.
--- NOTE | 2019-03-31 17:14 | NUR ---
DRESSINGS CHANGED TO BI LAT LOWER EXTREMITIES. PATIENTS SHINS VERY SCALY AND FLAKEY . PATIENT HAS HAD NO COMPLAINTS OTHER THAN FOR PAIN. MEDICATED PER EMAR. BLOOD SUGARS DC'D THIS SHIFT. CBGS WNL. FAMILY AT BEDSIDE. PT ALERT AND ORIENTED AND ABLE TO EXPRESS ANY NEEDS. CALL LIGHT WITHIN REACH.
--- NOTE | 2019-04-01 07:24 | NUR ---
SHIFT SUMMARY PT IS A 78 Y/O MALE, ADMITTED FOR CELLULITIS. HE IS A&O X 4, AND A 1-2PA TO THE BATHROOM. PT'S WOUND DRESSINGS REMAINED C/D/I DURING THE NIGHT, WITH NO SIGNS OF SEEPING THROUGH THE DRESSING AT ASSESSMENT. PT WAS MEDICATED TWICE FOR PAIN WITH 10 MG OF OXYCODONE. NO COMPLAINTS OF NAUSEA OR SOB. VITAL SIGNS STABLE. NO OTHER ACUTE CHANGES IN PT CONDITION NOTED. REPORT GIVEN TO ONCOMING EZEQUIEL.
[2019-04-01 15:01] LABS: BASOPHILS ABSOLUTE AUTO 0.07 K/mm3 (0.00-0.23); BASOPHILS PERCENT AUTO 1 % (0-2); EOSINOPHILS ABSOLUTE AUTO 0.45 K/mm3 (0.00-0.68); EOSINOPHILS PERCENT AUTO 8 % (0-6); Hematocrit 29.4 % (37.0-53.0); Hemoglobin 9.2 g/dL (13.5-17.5); IMMATURE GRAN ABSOLUTE AUTO 0.04 K/mm3 (0.00-0.10); IMMATURE GRAN PERCENT AUTO 1 % (0-1); LYMPHOCYTES ABSOLUTE AUTO 1.37 K/mm3 (0.84-5.20); LYMPHOCYTES PERCENT AUTO 24 % (21-46); MONOCYTES ABSOLUTE AUTO 0.78 K/mm3 (0.16-1.47); MONOCYTES PERCENT AUTO 13 % (4-13); Mean Corpuscular HGB 24.1 pg (26.0-34.0); Mean Corpuscular HGB Conc 31.3 g/dL (31.5-36.5); Mean Corpuscular Volume 77 fL (80-100); Mean Platelet Volume 9.1 fL (9.1-12.4); NEUTROPHILS ABSOLUTE AUTO 3.11 K/mm3 (1.96-9.15); NEUTROPHILS PERCENT AUTO 54 % (41-73); Platelet Count 279 K/mm3 (150-400); RDW Coefficient Variation 15.6 % (11.7-14.2); Red Blood Cell Count 3.81 M/mm3 (4.30-5.90); White Blood Cell Count 5.82 K/mm3 (4.00-11.30)
[2019-04-01 15:27] LABS: Anion Gap 8 mmol/L (6-16); Blood Urea Nitrogen 31 mg/dL (8-24); Bun/Creatinine Ratio 28.2 (12.0-20.0); CO2, Blood 31 mmol/L (21-32); Calcium, Blood 8.4 mg/dL (8.5-10.1); Chloride, Blood 90 mmol/L (98-108); Glomerular Filtration Rate >60 (60-); Glucose, Blood 117 mg/dL (70-99); Potassium, Blood 3.5 mmol/L (3.5-5.5); Sodium, Blood 129 mmol/L (136-145)
--- NOTE | 2019-04-01 18:24 | NUR ---
SHIFT SUMMARY CALLED IN A CONSULT TO DR. SPENCE FOR LEG WOUNDS. CHANGED DRESSINGS ON BLE. AC CHEMSTICKS WITH NO COVERAGE AVAILABLE. DROPLET CONTACT FOR MRSA IN NARES, THROAT AND SPUTUM. CONSULT FOR DR. COELHO HAS ALSO BEEN CALLED ON A PREVIOUS SHIFT. BENEDRYL ORDERED TODAY FOR ITCHY SKIN. PT STATING HE IS TOO WEAK TO STAND THIS EVENING. REFUSED BEDPAN. OUT OF FEAR HE WOULD ATTEMPT TO GET UP, WE 2 PERSON ASSISTED HIM TO BSC.
--- NOTE | 2019-04-02 06:27 | NUR ---
SHIFT SUMMARY A/O, ABLE TO MAKE NEEDS KNOWN. COOPERATIVE WITH CARE. MULTIPLE REQUESTS OF STAFF T/O NIGHT. C/O PAIN/DISCOMFORT T/O SHIFT; MEDICATED PER EMAR. DRESSING SOAKED, CLEANED AND RE-DRESSED. STATED ITCHING WELL, MEDICATED PER EMAR. UP WITH 1-2P ASSIT /c FWW AND GB. DID NOT APPEAR TO REST MUCH OVERNIGHT. VSS/AFEBRILE. BED REMAINS IN LOWEST POSITION. CALL LIGHT AND BELONGINGS WITHIN REACH. WCTM. REPORT TO ONCOMING RN.
--- NOTE | 2019-04-02 18:26 | NUR ---
PT. SITTING UP IN BED EATING DINNER AND WATCHING TV. OXYCODONE GIVEN FOR REPORT OF PAIN. PT.'S DRESSINGS CHANGED ON BLE. CLEANED AREA WITH SKINTEGRITY PLACED XEROFORM COVERED BY EXUDRY HELD IN PLACE BY CHICKEN SKIN, THEN NETTING. BLE ELEVATED ON PILLOWS. NO OTHER NOTEABLE CHANGES THIS SHIFT.
[2019-04-03 05:19] LABS: BASOPHILS ABSOLUTE AUTO 0.07 K/mm3 (0.00-0.23); BASOPHILS PERCENT AUTO 1 % (0-2); EOSINOPHILS ABSOLUTE AUTO 0.56 K/mm3 (0.00-0.68); EOSINOPHILS PERCENT AUTO 9 % (0-6); Hematocrit 28.9 % (37.0-53.0); IMMATURE GRAN ABSOLUTE AUTO 0.04 K/mm3 (0.00-0.10); IMMATURE GRAN PERCENT AUTO 1 % (0-1); LYMPHOCYTES ABSOLUTE AUTO 1.54 K/mm3 (0.84-5.20); LYMPHOCYTES PERCENT AUTO 23 % (21-46); MONOCYTES ABSOLUTE AUTO 1.04 K/mm3 (0.16-1.47); MONOCYTES PERCENT AUTO 16 % (4-13); Mean Corpuscular HGB 23.6 pg (26.0-34.0); Mean Corpuscular HGB Conc 31.1 g/dL (31.5-36.5); Mean Corpuscular Volume 76 fL (80-100); Mean Platelet Volume 8.9 fL (9.1-12.4); NEUTROPHILS ABSOLUTE AUTO 3.33 K/mm3 (1.96-9.15); NEUTROPHILS PERCENT AUTO 51 % (41-73); Platelet Count 265 K/mm3 (150-400); RDW Coefficient Variation 15.9 % (11.7-14.2); RDW Standard Deviation 42.9 fL (35.1-46.3); Red Blood Cell Count 3.82 M/mm3 (4.30-5.90); White Blood Cell Count 6.58 K/mm3 (4.00-11.30)
--- NOTE | 2019-04-03 05:29 | NUR ---
SHIFT SUMMARY: 78 Y/O MALE, PLEASANT AND COOPERATIVE. COMPLAINED OF PAIN X2 THIS SHIFT, OXYCODONE WAS GIVEN FOR BOTH OCCURANCE, WHICH RELEIVED HIS PAIN TO COMFORTABLE LEVEL. HE COMPLAINED OF ITCHING OF THE SKIN X2 WELL, BENADRYL CREAM WAS APPLIED TO THE SHOULDERS AND UPPER BACK AREA, ALONG WITH ARMS. THIS LASTED HIM A WHILE BEFORE IT HAD TO BE APPLIED AGAIN. HE HAD A COMPLETE BED CHANGE WHEN HE WAS TRANSFERRED TO [facility]. HE HAD A LARGE BM WHICH WAS NOTED. FEET REMAINED ELEVATED, DRESSINGS REMAINED DRY AND INTACT, NO WEEPING NOTED. WILL REPORT TO DAY SHIFT RN.
[2019-04-03 05:38] LABS: Anion Gap 6 mmol/L (6-16); Blood Urea Nitrogen 29 mg/dL (8-24); Bun/Creatinine Ratio 29.2 (12.0-20.0); CO2, Blood 31 mmol/L (21-32); Calcium, Blood 8.6 mg/dL (8.5-10.1); Chloride, Blood 94 mmol/L (98-108); Creatinine, Blood 0.99 mg/dL (0.60-1.20); Glomerular Filtration Rate >60 (60-); Glucose, Blood 101 mg/dL (70-99); Potassium, Blood 3.6 mmol/L (3.5-5.5); Sodium, Blood 131 mmol/L (136-145)
--- NOTE | 2019-04-03 17:00 | NUR ---
CHANGED DRESSING ON BLE. CLEANED AREA WITH SKINTEGRITY, XEROFORM GAUZE PLACED ON OPEN WOUNDS, COVERED WITH OPTIFOAM HELD IN PLACE BY CHICKEN SKIN AND SECURED WITH ZAHRA WRAPS. PT. TOLERATED FAIRLY WELL RLE MORE SWOLLEN AND RED THAN THE LEFT ALSO MORE PAINFUL.
--- NOTE | 2019-04-03 18:25 | NUR ---
PT. LYING QUIETLY EYES CLOSED. NO NOTEABLE CHANGES THIS SHIFT. PT. IS SCHEDULED TO BE DISCHARGED HOME WITH [facility] TOMORROW. MED REC IS IN FRONT OF CHART.
--- NOTE | 2019-04-04 05:27 | NUR ---
SHIFT SUMMARY PT SLEPT OFF AND ON THROUGHOUT THE NIGHT. CONTINUED TO REPORT PAIN TO BLE'S. MEDICATED PER EMAR. BLE'S ELEVATED ON PILLOWS. DRESSINGS TO BLE'S REMAINED CLEAN, DRY, AND INTACT. SCALING TO BLE'S. ABD MODERATELY DISTENDED AND FIRM. PT REPORTS THIS NORMAL. PT REMAINED IN BED THROUGHOUT THE NIGHT. PT COMPLAINED OF ITCHING INTERMITTENTLY. MEDICATED W/ BENADRYL, BOTH PO AND CREAM. NO ACUTE CHANGES THIS SHIFT. VITAL SIGNS STABLE. WILL CONTINUE TO MONITOR.
--- NOTE | 2019-04-04 09:25 | NUR ---
FOLLOW UP PT TO BE DISCHARGED, HE STATES HE WOULD LIKE TO MAKE HIS OWN FOLLOW UP APPOINTMENT, CALLED HIS PCP'S OFFICE TO LET THEM KNOW THE PT WILL BE GOING HOME AND IF THEY DID NOT HEAR FROM HIM TO PLEASE REACH OUT FOR A FOLLOW UP
[2019-04-04] MEDS ORDERED: DOXY100 PO (09:36)
[2019-04-04] MEDS ORDERED: Vsl#3 Capsule1 EACH PO (09:37)
[2019-04-04] MEDS ORDERED: Benadryl Itch28.3 G1 TOP (09:39)
--- NOTE | 2019-04-04 15:16 | NUR ---
CHANGED DRESSINGS ON BLE WITH THE ASSISTANCE OF LUIS ALBERTO NIEVES. XEROFORM PLACED ON OPEN WOUNDS COVERED BY FOAM, THEN WRAPPED WITH CHICKEN SKIN AND ZAHRA BANDAGE. PT TOLERATED WELL WITH SOME PAIN. RIGHT LEG WAS MORE PAINFUL THAN LEFT.
--- NOTE | 2019-04-04 18:08 | NUR ---
Spiritual Care inital note: Mr. Owen was open to visit and prayer. He has a strong mehran that sustains him, as well as, a deep involvement with the [employer] community. No fears or concerns presented. [employer] will remain available.
--- NOTE | 2019-04-04 18:50 | NUR ---
PT DISCHARGED TO HOME WITH FAMILY ON HOME HEALTH. PT 2 PERSON TRANSFER TO WHEELCHAIR AND FROM WHEELCHAIR TO CAR. DISCHARGE INSTRUCTIONS AND MEDICATIONS REVIEWED WITH PT AND DAUGHTER. ALLEN VERBALIZED UNDERSTANDING OF INSTRUCTIONS. PT BELONGINGS WITH PT TO VEHICLE.
== END 2019-04-04 18:18 | disposition home health service (06) | DRG 300 ==
LOC: ER 21:34 → MEDS 03-29 02:16
PROVIDERS: Emergency Medicine; Internal Medicine; Nurse Practitioner Acute Care; ADMIT Internal Medicine
DX: I83.009 Varicose veins of unspecified lower extremity with ulcer of unspecified site (principal); L97.822 Non-pressure chronic ulcer of other part of left lower leg with fat layer exposed; N17.9 Acute kidney failure, unspecified; I50.22 Chronic systolic (congestive) heart failure; E87.1 Hypo-osmolality and hyponatremia; L03.116 Cellulitis of left lower limb; I13.0 Hypertensive heart and chronic kidney disease with heart failure and stage 1 through stage 4 chronic kidney disease, or unspecified chronic kidney disease; J44.9 Chronic obstructive pulmonary disease, unspecified; K21.9 Gastro-esophageal reflux disease without esophagitis; G47.33 Obstructive sleep apnea (adult) (pediatric); I73.9 Peripheral vascular disease, unspecified; L89.326 Pressure-induced deep tissue damage of left buttock; E11.40 Type 2 diabetes mellitus with diabetic neuropathy, unspecified; E11.22 Type 2 diabetes mellitus with diabetic chronic kidney disease; D63.1 Anemia in chronic kidney disease; E78.5 Hyperlipidemia, unspecified; N18.3 Chronic kidney disease, stage 3 (moderate); Z87.891 Personal history of nicotine dependence
CPT/HCPCS: 36415; 80048; 80053; 82947; 83605; 85025; 87040; 94640; 94760; 96365; 96375; 97110; 97116; 97162; 97165; 97530; 99284-25; J0696; J1170; J1644; J2270; J2405; Q0163

== ENCOUNTER 2019-03-30 00:04 | Day surgery (SDC) | payer MEDICARE, OTHER | END 2019-03-30 23:18 | disposition home or self-care (01) | LOC: ATC 00:04 | DX: E11.622 Type 2 diabetes mellitus with other skin ulcer (principal); L97.821 Non-pressure chronic ulcer of other part of left lower leg limited to breakdown of skin; L97.811 Non-pressure chronic ulcer of other part of right lower leg limited to breakdown of skin; E11.51 Type 2 diabetes mellitus with diabetic peripheral angiopathy without gangrene; I13.0 Hypertensive heart and chronic kidney disease with heart failure and stage 1 through stage 4 chronic kidney disease, or unspecified chronic kidney disease; E11.22 Type 2 diabetes mellitus with diabetic chronic kidney disease; N18.2 Chronic kidney disease, stage 2 (mild); I50.20 Unspecified systolic (congestive) heart failure; G47.33 Obstructive sleep apnea (adult) (pediatric); E66.9 Obesity, unspecified; I48.91 Unspecified atrial fibrillation; J44.9 Chronic obstructive pulmonary disease, unspecified; G89.29 Other chronic pain; M54.9 Dorsalgia, unspecified; Z79.899 Other long term (current) drug therapy; Z79.84 Long term (current) use of oral hypoglycemic drugs; Z88.0 Allergy status to penicillin; Z91.018 Allergy to other foods; Z68.28 Body mass index [BMI] 28.0-28.9, adult ==

== ENCOUNTER 2019-03-31 00:19 | Day surgery (SDC) | payer MEDICARE, OTHER | END 2019-03-31 22:41 | disposition home or self-care (01) | LOC: ATC 00:19 | DX: E11.622 Type 2 diabetes mellitus with other skin ulcer (principal); L97.821 Non-pressure chronic ulcer of other part of left lower leg limited to breakdown of skin; L97.811 Non-pressure chronic ulcer of other part of right lower leg limited to breakdown of skin; E11.51 Type 2 diabetes mellitus with diabetic peripheral angiopathy without gangrene; I13.0 Hypertensive heart and chronic kidney disease with heart failure and stage 1 through stage 4 chronic kidney disease, or unspecified chronic kidney disease; E11.22 Type 2 diabetes mellitus with diabetic chronic kidney disease; N18.2 Chronic kidney disease, stage 2 (mild); I50.20 Unspecified systolic (congestive) heart failure; G47.33 Obstructive sleep apnea (adult) (pediatric); E66.9 Obesity, unspecified; I48.91 Unspecified atrial fibrillation; J44.9 Chronic obstructive pulmonary disease, unspecified; G89.29 Other chronic pain; M54.9 Dorsalgia, unspecified; Z79.899 Other long term (current) drug therapy; Z79.84 Long term (current) use of oral hypoglycemic drugs; Z88.0 Allergy status to penicillin; Z91.018 Allergy to other foods ==

== ENCOUNTER 2019-04-10 00:28 | Day surgery (SDC) | payer MEDICARE, OTHER ==
[~2019-04-10 00:28] MED LIST changes: +Benadryl Itch28.3 G1 TOP; +Vsl#3 Capsule1 EACH PO
== END 2019-04-10 22:59 | disposition home or self-care (01) ==
LOC: WOUND 00:28
DX: E11.622 Type 2 diabetes mellitus with other skin ulcer (principal); L97.812 Non-pressure chronic ulcer of other part of right lower leg with fat layer exposed; L97.821 Non-pressure chronic ulcer of other part of left lower leg limited to breakdown of skin; E11.51 Type 2 diabetes mellitus with diabetic peripheral angiopathy without gangrene; I73.9 Peripheral vascular disease, unspecified; I10 Essential (primary) hypertension

== ENCOUNTER 2019-04-18 14:33 | Inpatient (IN) | payer MEDICARE, OTHER ==
[~2019-04-18] VITALS: Ht 182.9 cm; Wt 110.4 kg
[~2019-04-18 14:33] MED LIST changes: -Celexa10 MG PO
[2019-04-18 15:11] LABS: BASOPHILS ABSOLUTE AUTO 0.05 K/mm3 (0.00-0.23); BASOPHILS PERCENT AUTO 1 % (0-2); EOSINOPHILS ABSOLUTE AUTO 0.32 K/mm3 (0.00-0.68); EOSINOPHILS PERCENT AUTO 6 % (0-6); Hematocrit 28.8 % (37.0-53.0); Hemoglobin 8.8 g/dL (13.5-17.5); IMMATURE GRAN ABSOLUTE AUTO 0.05 K/mm3 (0.00-0.10); IMMATURE GRAN PERCENT AUTO 1 % (0-1); LYMPHOCYTES ABSOLUTE AUTO 1.29 K/mm3 (0.84-5.20); LYMPHOCYTES PERCENT AUTO 23 % (21-46); MONOCYTES ABSOLUTE AUTO 0.64 K/mm3 (0.16-1.47); MONOCYTES PERCENT AUTO 12 % (4-13); Mean Corpuscular HGB 24.1 pg (26.0-34.0); Mean Corpuscular HGB Conc 30.6 g/dL (31.5-36.5); Mean Corpuscular Volume 79 fL (80-100); Mean Platelet Volume 8.6 fL (9.1-12.4); NEUTROPHILS ABSOLUTE AUTO 3.21 K/mm3 (1.96-9.15); NEUTROPHILS PERCENT AUTO 58 % (41-73); Platelet Count 275 K/mm3 (150-400); RDW Coefficient Variation 16.2 % (11.7-14.2); RDW Standard Deviation 46.6 fL (35.1-46.3); Red Blood Cell Count 3.65 M/mm3 (4.30-5.90); White Blood Cell Count 5.56 K/mm3 (4.00-11.30)
[2019-04-18 15:20] LABS: Source, Urine Clean Catch
[2019-04-18 15:29] LABS: Bilirubin, Urine Neg (Neg); Blood, Urine Neg (Neg); Glucose Qualitative, Urine Neg (Neg); Ketones, Urine Neg (Neg); Leukocyte Esterase, Urine Neg (Neg); Nitrite, Urine Neg (Neg); Protein, Urine Neg (Neg); Specific Gravity, Urine 1.015 (1.003-1.022); Urobilinogen, Urine NORM (Normal)
[2019-04-18 15:30] LABS: Alanine Aminotransfer (ALT/SGP 8 U/L (12-78); Albumin, Blood 2.6 g/dL (3.4-5.0); Albumin/Globulin Ratio 0.5 (0.8-1.8); Alk Phos 124 U/L (50-136); Anion Gap 7 mmol/L (6-16); Aspartate Aminotrans (AST/SGOT 20 U/L (12-37); Blood Urea Nitrogen 16 mg/dL (8-24); Bun/Creatinine Ratio 18.4 (12.0-20.0); CO2, Blood 23 mmol/L (21-32); Calcium, Blood 7.9 mg/dL (8.5-10.1); Chloride, Blood 106 mmol/L (98-108); Creatinine, Blood 0.87 mg/dL (0.60-1.20); Globulin, Blood 5.3 g/dL (2.2-4.0); Glomerular Filtration Rate >60 (60-); Glucose, Blood 110 mg/dL (70-99); Potassium, Blood 4.1 mmol/L (3.5-5.5); Sodium, Blood 136 mmol/L (136-145); Total Protein, Blood 7.9 g/dL (6.4-8.2)
[2019-04-18] MEDS ORDERED: FURO40 PO (15:42)
[2019-04-18] MEDS ORDERED: GABA300 PO (15:44)
[2019-04-18] MEDS ORDERED: Oxycodone-Apap1 EAC3 PO (15:46)
[2019-04-18] MEDS ORDERED: Amaryl1 MG PO (15:47)
[2019-04-18] MEDS ORDERED: Loratadine10 MG PO (15:48)
[2019-04-18] MEDS ORDERED: Potassium20 MEQ/11 PO (15:50)
[2019-04-18 16:32] LABS: Appearance, Urine Clear (Clear); Color, Urine Yellow (P-Yellow)
[2019-04-18 19:14] LABS: Percent Saturation 6.5 % (20.0-50.0)
[2019-04-18] MEDS ORDERED: CITA20 PO (20:04)
--- NOTE | 2019-04-18 20:59 | NUR ---
transfer report from MILK BOTTLING MACHINE OPERATOREZEQUIEL Smith on PT being admitted from Home after episode of unresponsiveness and lt sided weakness and Lt facial droop that had resolved by the time they reached ER. No current S/SX. Will be in droplet contact isolation for MRSA in nares throat sputum and wounds. Will be on Tele Monitor and planning carotid and echo in AM. Full code. Has multiple wounds and several sacral DCUBS. Await admission
--- NOTE | 2019-04-19 00:41 | NUR ---
DR Martin updated on PT's CO unrelieved LE pain chronic despite percocet and ultram. PT with multiple requests and drank 4 large cups of fluids yelling for more. Fentanyl 25 to 50 mcg Q 4 hrs order recieved. DC scds PT refused due to bilat le pain and chronic wounds on lovenox. Wound care orders recieved. PT goes to wound clinic Q Monday and has home health wound care with bilat le dressing changed by home health. PT refuses le dressings removed currently to photodoc and obtain wound cultures. 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 Cultures sent from nares sputum throat and will culture sacral decub wounds with dressing change and photodoc.
--- NOTE | 2019-04-19 01:41 | NUR ---
pt ADMITTED WITH TIA AND HAS NO DEFICITS APPARENT. COUGHING FREQUENTLY THICK YELLOW DELGADO SPUTUM. EITHER HOLLERING OUT FOR rn OR BANK VAULT ATTENDANT BUENROSTRO WITH MULTIPLE REQUESTS. APPEARS LONELY, IS HOSPITALIZED IN ROOM 12 AND WANTS TO GO VISIT HER. PT IN DROPLET CONTACT TO RULE OUT MRSA IN SPUTUM, NARES, WOUNDS AND THROAT. PT HAD PERCOCET 5/325 MG TAB ONE AND 50 MG ULTRAM AND REPORTS INCREASED PAIN. DISCUSSED UNRELIEVED PAIN WITH DR MARTINEZ AND ALSO PT REQUEST TO HAVE IV DILAUDID PER LAST VISIT 10 DAYS AGO. PT HAD BEEN ON LIMITED FLUIDS BUT HE DECLINED FLUID RESTRICTION. PT SAYS FENTANYL WILL NOT BE EFFECTIVE FOR HIS CHRONIC PAIN THAT HE WANTS IV DILAUDID. WOUND CARE ORDERED PER WOUND CARE CLINIC RECOMMENDATIONS HAS [facility] WHO CHANGED HIS BILAT LE WOUND DRESSING YESTERDAY. PT SIGNED CONSENT TO PHOTODOC BUT REFUSED TO HAVE BILAT LE WOUND DRESSING CHANGED YET. pt SAYS BASELINE HE IS ABLE TO AMBULATE WITH FWW BUT NEEDS ASSIST TO MOVE IN BED. fALL AND DECUBIDUS PRECAUTIONS IN PLACE. cONTINUE TO OBSERVE. TELE SHOWS AFIB CHRONIC RATE 97. PT NOT SLEEPING ANXIOUS AND IRRITABLE NOISY SAYING HE WANT TO RETURN HOME WHERE HE CAN GET GOOD PAIN RELIEF. SUPPORT OFFERED BUT REMINDED PT WE CAN NOT BE IN HIS ROOM CONSTANTLY AND THAT HE IS IN DROPLET CONTACT ISOLATION AND HAS PRODUCTIVE COUGH.
[2019-04-19 05:02] LABS: BASOPHILS ABSOLUTE AUTO 0.05 K/mm3 (0.00-0.23); BASOPHILS PERCENT AUTO 1 % (0-2); EOSINOPHILS ABSOLUTE AUTO 0.35 K/mm3 (0.00-0.68); EOSINOPHILS PERCENT AUTO 4 % (0-6); Hematocrit 27.3 % (37.0-53.0); Hemoglobin 8.3 g/dL (13.5-17.5); IMMATURE GRAN ABSOLUTE AUTO 0.06 K/mm3 (0.00-0.10); IMMATURE GRAN PERCENT AUTO 1 % (0-1); LYMPHOCYTES ABSOLUTE AUTO 1.49 K/mm3 (0.84-5.20); LYMPHOCYTES PERCENT AUTO 16 % (21-46); MONOCYTES ABSOLUTE AUTO 0.94 K/mm3 (0.16-1.47); MONOCYTES PERCENT AUTO 10 % (4-13); Mean Corpuscular HGB 23.7 pg (26.0-34.0); Mean Corpuscular HGB Conc 30.4 g/dL (31.5-36.5); Mean Corpuscular Volume 78 fL (80-100); Mean Platelet Volume 8.7 fL (9.1-12.4); NEUTROPHILS ABSOLUTE AUTO 6.57 K/mm3 (1.96-9.15); NEUTROPHILS PERCENT AUTO 70 % (41-73); Platelet Count 270 K/mm3 (150-400); RDW Coefficient Variation 16.3 % (11.7-14.2); RDW Standard Deviation 45.7 fL (35.1-46.3); White Blood Cell Count 9.46 K/mm3 (4.00-11.30)
--- NOTE | 2019-04-19 05:14 | NUR ---
PT CONTINUES DRUG SEEKING BEHAVIOR FOR CHRONIC LE PAIN. RESEARCH RECRUITER LIGHT CONSTANTLY WITH MUTIPLE REQUESTS FOR CHRONIC MEDICAL CONDITIONS. PT SHOWS NO NEW NEURO DEFICITS. AFIB ON TELE 1 6 BEAT RUN OF VTACH. ON CHRONIC OXYGEN MAEVE REF CPAP. WOND CARE DONE
[2019-04-19 05:21] LABS: Anion Gap 6 mmol/L (6-16); Blood Urea Nitrogen 17 mg/dL (8-24); Bun/Creatinine Ratio 19.5 (12.0-20.0); CHOL/HDL RATIO 2.5; CO2, Blood 25 mmol/L (21-32); Calcium, Blood 8.3 mg/dL (8.5-10.1); Chloride, Blood 102 mmol/L (98-108); Cholesterol 70 mg/dL (50-200); Creatinine, Blood 0.87 mg/dL (0.60-1.20); Glomerular Filtration Rate >60 (60-); Glucose, Blood 75 mg/dL (70-99); HDL Cholesterol 28 mg/dL (>39); LDL/HDL RATIO 1.2; Low Density Lipoprotein Chol 32 mg/dL (0-110); Potassium, Blood 4.5 mmol/L (3.5-5.5); Sodium, Blood 133 mmol/L (136-145); Triglycerides 48 mg/dL (30-160); Very Low Density Lipoprot Chol 9 mg/dL (6-32)
--- NOTE | 2019-04-19 10:12 | NUR ---
Echocardiogram completed.
[2019-04-19 12:39] LABS: Hematocrit 27.5 % (37.0-53.0); Hemoglobin 8.4 g/dL (13.5-17.5)
--- NOTE | 2019-04-19 17:35 | NUR ---
PATIENT IS ALERT AND ORIENTED. NO FACIAL DROOP NOTED. SOME LEFT SIDED WEAKNESS NOTED WITH HIS LUE. PATIENT HAS A COUGH PRODUCING YELLOW, THICK SPUTUM. HE WORKED WITH PT AND OT TODAY. USES THE URINAL IN BED. PATIENT WAS REPORTED TO BE DISRUPTIVE LAST NIGHT BUT HAS BEEN PLEASANT TODAY. HE COMPLAINS OF PAIN IN HIS LOWER EXTREMITIES. HE LIVES AT HOME WITH HIS AND ADULT DAUGHTER. A CONSULT WITH DR. COELHO WAS PLACED. DR. COELHO SAID HE WOULD NOT BE ABLE TO SEE THE PATIENT UNTIL Monday04-22-19. DR. COELHO ALSO SAID HE COULD SEE THE PATIENT AN OUTPATIENT IF DR. WALKER WANTED TO DISCHARGE THE PATIENT. THE PATIENT HAS SLEPT MOST OF THE AFTERNOON. HE'S HAD A FEW VISITORS. WILL CONTINUE TO MONITOR.
--- NOTE | 2019-04-20 05:35 | NUR ---
SHIFT SUMMARY: 78 Y/O MALE ADMITTED FOR TRANSIENT CEREBRAL ISCHEMIC ATTACK. RUBINA HAS REMAINED PLEASANT AND COOPERATIVE ALL NIGHT. HE HAS BEEN MOSTLY SLEEPING THE ENTIRE SHIFT. HAS AWAKENED ONLY A HAND FULL OF TIMES TO USE THE BATHROOM AND ONCE FOR PAIN MEDS. FEET REMAINED ELEVATED, DRESSINGS REMAINED CLEANSED AND DRY. NO BM NOTED THIS SHIFT. WEAKNESS IS STILL PRESENT ON THE LEFT SIDE, HE TENDS TO LEAN THAT WAY, AND CONSTRUCTION MANAGER ARE WEAKER THEN THE RIGHT. COUGH HAS BEEN PRODUCTIVE WITH THICK YELLOW BROWN SPUTUM. MEDS WERE GIVEN PER EMAR. VITALS REMAINED WNL, BS NO COVERAGE INDICATED. NO OTHER CHANGES TO REPORT WILL REPORT TO DAY SHIFT RN.
--- NOTE | 2019-04-20 17:06 | NUR ---
SHIFT SUMMARY: PT HAS BEEN A/O X 4 THIS SHIFT WITH ONGOING C/O CHRONIC PAIN. PAIN MEDS HAVE BEEN GIVEN THROUGHOUT THE SHIFT ORDERED BUT HE CONTINUES TO C/O PAIN TO HIS LEGS. PT DISPLAYS GENERALIZED WEAKNESS BUT IT IS NOT FOCUSED ON ONE SIDE. HE CANNOT RE-POSITION HIMSELF IN BED BUT CAN USE THE WALKER TO STAND [place] [facility]. PT CONTINUES ON 2 LPM OF O2 VIA N.C. PT HAS A PRESSURE ULCER TO SACRUM/BUTTOCK AND THE DRESSING WAS CHANGED AND IS C.D.I. DRESSINGS TO BLE WERE CHANGED ORDERED. PT IS ABLE TO MAKE HIS NEEDS KNOWN BUT CALLS OUT FOR HELP IN ADDITION TO USING THE CALL LIGHT. PT CONTINUES ON TELE AND RENEWALS MANAGER REPORTS A RHYTHM OF A-FIB @ 85 AND PT IS ASYMPTOMATIC. PT IS RESTING IN BED WITH HIS CALL LIGHT IN REACH.
--- NOTE | 2019-04-21 06:25 | NUR ---
SHIFT SUMMARY PT A/O C/O PAIN IN LEGS AND MEDICATED PER EMAR. WORE 2L O2 NC C/O ITCHINESS IN LEGS AND GOT ORDER FOR BENADRYL. 1-2 SBA C GAIT BELT AND WALKER TO BSC BUT HE WAS UNABLE TO HAVE BM. USING URINAL C ASSISTANCE FOR SEVERE PENILE SWELLING. ELEVATED LEGS ON PILLOW. HE DOZED ON AND OFF T/O NIGHT. CALL LIGHT IN REACH.
--- NOTE | 2019-04-22 06:10 | NUR ---
SHIFT SUMMARY PT A/O C/O PAIN IN LEGS AND MEDICATED PER EMAR. INCONT AT TIMES BUT MOSTLY CONT WITH URINAL USE ASSISTANCE. WORE 2L O2 NC WHILE SLEEPING. HE WAS ABLE TO SLEEP THROUGH MOST OF NIGHT. CALL LIGHT IN REACH.
--- NOTE | 2019-04-22 16:43 | NUR ---
SHIFT SUMMARY: PT HAS BEEN A/O X 4 TODAY WITH ONGOING C/O CHRONIC PAIN TO BLE. PAIN MEDS HAVE BEEN GIVEN THROUGHOUT SHIFT ORDERED. PT CONTINUES ON [address] BOWMAN OFFICE WAS CALLED TODAY ABOUT THE CONSULT AND THEY STATED THAT HE WOULD BE IN TO SEE THE PT THIS MARIA M, PT WAS NOTIFIED. DR WALKER ORDERED A CTA OF THE NECK AND A NEW IV WAS STARTED WITH CHARGE NURSE FOR THE CT. WOUND DRESSINGS WERE CHANGED TO BLE AND COCCYX. PT MAKES HIS NEEDS KNOWN BY CALLING OUT AND NEEDS REMINDERS TO USE THE CALL LIGHT FOR HELP. PT WORKED WITH THERAPY AND IS ABLE TO TRANSFER X 1 ASSIST WITH FWW. HE IS RESTING IN BED VISITING WITH HIS FRIEND.
--- NOTE | 2019-04-22 18:27 | NUR ---
PT WAS ASSISTED UP TO W/C FOR CTA AND UPON ARRIVAL TO CT THE PT REFUSED THE TEST STATING HE WAS UNABLE TO LAY FLAT FOR THE EXAM. DR WALKER WAS NOTIFIED AND GAVE ORDERS FOR A PALLIATIVE CARE CONSULT. WILL LEAVE WORD FOR DR COELHO WITH THE ONCOMING RN IF HE DOESNT COME BEFORE THE END OF THE SHIFT.
--- NOTE | 2019-04-22 19:54 | NUR ---
1919: ASSUMED CARE OF PATIENT. PT RESTING IN BED QUIETLY. BED LOW AND LOCKED. CALL BUENROSTRO WITHIN REACH
--- NOTE | 2019-04-23 11:32 | NUR ---
Pt is resting in bed upon arrival. Pt's daughter Sara is at bedside. Engaged in therapeutic discussion regarding goals of care. Educated on disease process and hospice as an option. Educated on hospice philosophy. Discussed risk factors and daughter would like to know if Pt is a candidate to have occlusions revearsed with his comorbidities. Deferred this question to hospitalist and or Dr Pearson. Pt reports he would like to have the CTA with the help of Ativan to get him through the testing. Pt reports no other concerns at this time. Daughter continues discussion outside of Pt's room. Listened as daughter reports significant decline in Pt's health. Reenforced education on disease process including trajectory. Daughter reports family is no longer able to care for Pt and he will need a higher level of care. No other concerns reported at this time. Spoke with bedside nurse Osei and discussed case. Palliative Care will remain available.
--- NOTE | 2019-04-23 17:05 | NUR ---
SHIFT SUMMARY: PT IS A/O X 4 WITH CONSTANT C/O CHROINIC PAIN. PT CALLS VERY FREQUENTLY FOR VARIES NEEDS INCLUDING ALL ADLS. DAUGHTER HAS BEEN AT BEDSIDE MOST OF THE DAY. PALLIATIVE CARE RN MET WITH PT TODAY, PER RN PT WISHES TO CONTINUE WITH CURRENT CODE STATUS AND GO AHEAD WITH CURRENT PLAN OF CARE, HE IS ALSO REFUSING SNF AND WISHES TO GO HOME WITH CAREGIVERS. DR BANKS PUT ORDERS IN TO RE ATTEMPT THE CTA TODAY AND VALIUM WAS GIVEN ORDERED, PT WAS TRANPORTED DOWN TO IMAGING WHERE THEY FOUND HIS IV HAD INFILTRATED. PT WAS BROUGHT BACK TO ROOM AND AFTER MULTIPLE ATTEMPTS THE CHARGE NURSE WAS ABLE TO START A NEW PERIPHERAL LINE IN HIS RIGHT UPPER ARM. PT WAS TRANSPORTED FOR A SECOND TIME AND CTA OF THE HEAD AND NECK WAS COMPLETED. PT HAS BEEN RESTING IN BED. AND HAS HIS CALL LIGHT IN REACH.
[2019-04-24 04:50] LABS: BASOPHILS ABSOLUTE AUTO 0.06 K/mm3 (0.00-0.23); BASOPHILS PERCENT AUTO 1 % (0-2); EOSINOPHILS ABSOLUTE AUTO 0.41 K/mm3 (0.00-0.68); EOSINOPHILS PERCENT AUTO 8 % (0-6); Hematocrit 28.1 % (37.0-53.0); Hemoglobin 8.5 g/dL (13.5-17.5); IMMATURE GRAN ABSOLUTE AUTO 0.04 K/mm3 (0.00-0.10); IMMATURE GRAN PERCENT AUTO 1 % (0-1); LYMPHOCYTES ABSOLUTE AUTO 1.45 K/mm3 (0.84-5.20); LYMPHOCYTES PERCENT AUTO 28 % (21-46); MONOCYTES ABSOLUTE AUTO 0.82 K/mm3 (0.16-1.47); MONOCYTES PERCENT AUTO 16 % (4-13); Mean Corpuscular HGB 23.4 pg (26.0-34.0); Mean Corpuscular HGB Conc 30.2 g/dL (31.5-36.5); Mean Corpuscular Volume 77 fL (80-100); Mean Platelet Volume 9.1 fL (9.1-12.4); NEUTROPHILS ABSOLUTE AUTO 2.44 K/mm3 (1.96-9.15); NEUTROPHILS PERCENT AUTO 47 % (41-73); Platelet Count 228 K/mm3 (150-400); RDW Coefficient Variation 16.5 % (11.7-14.2); RDW Standard Deviation 46.3 fL (35.1-46.3); Red Blood Cell Count 3.63 M/mm3 (4.30-5.90); White Blood Cell Count 5.22 K/mm3 (4.00-11.30)
[2019-04-24 05:12] LABS: Alanine Aminotransfer (ALT/SGP 11 U/L (12-78); Albumin, Blood 2.5 g/dL (3.4-5.0); Albumin/Globulin Ratio 0.5 (0.8-1.8); Alk Phos 113 U/L (50-136); Anion Gap 5 mmol/L (6-16); Aspartate Aminotrans (AST/SGOT 20 U/L (12-37); Blood Urea Nitrogen 16 mg/dL (8-24); Bun/Creatinine Ratio 17.9 (12.0-20.0); CO2, Blood 30 mmol/L (21-32); Calcium, Blood 8.4 mg/dL (8.5-10.1); Chloride, Blood 100 mmol/L (98-108); Creatinine, Blood 0.89 mg/dL (0.60-1.20); Glomerular Filtration Rate >60 (60-); Glucose, Blood 102 mg/dL (70-99); Magnesium, Blood 1.8 mg/dL (1.6-2.4); Potassium, Blood 4.1 mmol/L (3.5-5.5); Sodium, Blood 135 mmol/L (136-145); Total Protein, Blood 7.5 g/dL (6.4-8.2)
[2019-04-24 05:44] LABS: Stool Occult Blood Guaiac 1 Pos (Neg)
--- NOTE | 2019-04-24 06:05 | NUR ---
SHIFT SUMMARY PT IS A 78 Y/O MALE, ADMITTED FOR A TRANSIENT CVA. HE IS A&O X 4, AND A 1PA UP. PT HAS CHRONIC PAIN THAT IS NOT WELL CONTROLLED. PT FREQUENTLY ASKED FOR PAIN MEDS, AND WAS ALSO MEDICATED ONCE FOR ITCHING WITH PRN BENEDRYL. NO COMPLAINTS OF NAUSEA OR SOB. VITAL SIGNS STABLE. NO OTHER ACUTE CHANGES IN PT CONDITION NOTED DURING THE NIGHT. WILL CONTINUE TO MONITOR AND TREAT PER EMAR UNTIL HAND OFF TO DAY SHIFT RN.
--- NOTE | 2019-04-24 10:00 | NUR ---
PT SOME TESTY, IRRITABLE. FORGETS WE TREATED RECENTLY FOR PAIN. CALLS REGULARLY. FORGETS WHAT WANTS ON OCCATION. A/O X3. H/R IRREG, NO MURMER NOTED. PER TELE AFIB IN 96. LUNGS CLEAR, BUT DIM T/O. RESP EASY UNLABORED. ON 2L O2. BT X4 LAST BM YEST. VOIDS URINAL. 1-2 ASST TO CHAIR FWW AND GAIT BELT. LEGS WRAPPED PER DR ORDERS. WILL REVIEW DURING SHIFT. [facility] CALL LITE IN REACH, CALLS APPROP. BED ALARM ON FOR SAFETY
--- NOTE | 2019-04-24 19:30 | NUR ---
PT VP BUSINESS DEVELOPMENT LITE MULTIPLE TIMES FOR REPEAT QUESTIONS. REQUESTING PAIN MEDS NUMEROUS TIMES RIGHT AFTER RECEIVING MED. NEED REMINDING THAT HAS JUST HAD MEDS. APPEARS TO BE A/O X3 JUST DEMANDING OR FORGETFUL. DR VEGA GLADE TO DO INTERVENTION TOMORROW AM. PT NPO MIDNITE. LEGS REWRAPPED BY HEAD GREENSKEEPER THIS AFT. NO OTHER CONCERNS AT THIS TIME. BED IN LOW POSITION, CALL LITE IN REACH, CALLS APPROP.
--- NOTE | 2019-04-25 00:30 | NUR ---
0030: PT MADE NPO STATUS FOR ANGIOGRAM LATER THIS DAY; GIVEN ORAL SWABS AND VERBALIZES UNDERSTANDING NOT TO DRINK WATER. CALL LIGHT IN REACH.
--- NOTE | 2019-04-25 14:19 | NUR ---
Spiritual care visit conducted. Patient is lying in bed and awaiting surgery. Patient tells me about his deep shinto roots and the healings that Arnel does in his body and his soul. Patient is amazingly upbeat considering all that his body going through. Patient asks if he could see Father Dar (I went down to Father's office after the visit and asked him to visit the patient) which I tell patient that I can arrange. I listen empathically and provide spiritual guidabce and prayer. I also reinforce helpful attitudes and practices. Patient responds well and shows signs of an elevated mood.
--- NOTE | 2019-04-25 19:19 | NUR ---
SHIFT SUMMARY. A&OX4, PT ON BEDREST, AWARE OF LIMITATIONS, NO SAFETY CONCERNS. PT WITH CHRONIC PAIN TO FEET AND ANKLES MANAGED WELL WITH CURRENT ORDERS. PT DENIES SOB, N/V. RECIEVED CALL FROM HEART INVERNESS THAT DR. COELHO WAS UNABLE TO PERFORM PROCEDURE TODAY AND PT IS TO CALL FOR APPOINTMENT FOR OUTPATIENT ON MANDAY. FAMILY IN ROOM AT TIME OF DISCUSSION. DINNER TRAY ORDERED FOR PT. DRESSINGS TO BLE CLEANSED AND CHANGED. NO NEW CHANGES OR CONCERNS.
--- NOTE | 2019-04-26 05:19 | NUR ---
FILLING AND STAPLING MACHINE OPERATOR SUMMARY NO ACUTE CHANGES THIS SHIFT. PT AAOX4 AND PLEASANT. CONTINUES TO REQUIRE IV FENTANYL Q4H FOR PAIN OF HIS BLE. DENIES OTHER PAIN MEDS. PT HAS BEEN ABLE TO AMBULATE TO THE BSC WITH ASSIST TONIGHT, HAD A LARGE BM. VSS, WILL CONTINUE TO MONITOR.
[2019-04-26] MEDS ORDERED: Aspir 8181 MG PO (15:11)
[2019-04-26] MEDS ORDERED: FURO20 PO (15:15)
[2019-04-26] MEDS ORDERED: Potassium20 MEQ/11 PO (15:16)
--- NOTE | 2019-04-26 17:12 | NUR ---
LATE ENTRY. 1330 NOTIFIED OF PT'S D/C ORDERS. 1430 NOTIFIED THAT PT W/C TRANSPORT WOULD ARIVE AT 1600. FAMILY REPORTS CALLING LEAH TO CONFIRM VISIT ON MONDAY. NOTIFED TO CALL DR. COELHO'S OFFICE MONDAY TO SET UP APPOINTMENT COMPARISON SHOPPER WAS NOT IN THE OFFICE WHEN THIS RN CALLED. NEW RX FAXED TO [facility]. 1500 WOUND CARE PERFORMED TO BILATERAL LE AND MEPILEX CHANGED TO COCCYX BY SN. NO OPEN WOUNDS TO COCCYX OR SACRUM. PHOTO DOCUMENTATION COMPLETED. IV REMOVED. 1613 PT DISCHARGED HOME VIA W/C TRANSPORT. PT 1 ASSIST TO W/C. PT DRESSED IN HOSPITAL GOWN AND PANTS BY OT PRIOR TO D/C. NO NEW CHANGES OR CONCERNS.
--- NOTE | 2019-04-26 17:26 | NUR ---
DRSGS TO BILATERAL LOWER EXTREMITY WOUNDS CHANGED. SCANT SEROUS DRAINAGE ON PREVIOUS DRSGS. NO ODOR. NO OBSERVABLE COMPLICATIONS TO CHRONIC WOUNDS. WOUNDS CLEANED W/WOUND CLENSER, PAT DRIED, XEROFORM GAUZE APPLIED TO OPEN AREAS, COVERED W/ABD, WRAPPED IN KERLIX, AND LOOSELY SECURED W/ZAHRA WRAP TO PRESERVE DRSG DURING TRANSPORT. PEDAL PULSES +2 BILATERALLY. FLAKEY DRY SKIN FROM KNEES TO TOES. PICTURES TAKEN. COCCYX/BUTTOCKS MEPILEX DRSG REMOVED. BLANCHING PINK WITHOUT OPEN AREAS. AREA CLEANED, AND NEW MEPILEX APPLIED FOR PROTECTION. PICTURE TAKEN.
--- NOTE | 2019-04-26 18:44 | NUR ---
Clinical Visit: Family phone call Contacted by Karen, pt's granddaughter. She feels as though the family has been given conflicting information about the pt's care and prognosis. Visited with pt. Permission to speak to Karen obtained from the pt. Reviewed current pt's problems. She is confused that pt needs a procedure, however, he is to be discharged today. Reviewed this: Pt will see Dr. Pearson as outpatient early next week. Reviewed procedure and purpose. She has also been told that pt either has 3 weeks or 3 months to live and is asking questions about hospice care. Instructed that the family should speak to the pt's PCP doc and also consult the home health agency. She reports that he will have a wound care nurse following him. Instructed that the family can ask the home health agency to do a consult on the pt to see if he qualifies for hospice care. She verbalizes understanding. She also asks for a return call from the palliative nurseFilipe. Will pass on message to palliative nurse to return call.
== END 2019-04-26 16:13 | disposition home health service (06) | DRG 68 ==
LOC: ER 14:33 → MEDS 14:34
PROVIDERS: Emergency Medicine; Internal Medicine; ADMIT Family Medicine
DX: I65.21 Occlusion and stenosis of right carotid artery (principal); L97.929 Non-pressure chronic ulcer of unspecified part of left lower leg with unspecified severity; L97.919 Non-pressure chronic ulcer of unspecified part of right lower leg with unspecified severity; I48.20 Chronic atrial fibrillation, unspecified; I10 Essential (primary) hypertension; I65.22 Occlusion and stenosis of left carotid artery; J44.9 Chronic obstructive pulmonary disease, unspecified; I48.91 Unspecified atrial fibrillation
CPT/HCPCS: 36415; 70450; 70496; 70498; 80048; 80053; 80061; 81003; 82272; 82607; 82728; 82746; 82947; 83540; 83550; 83735; 84484; 85014; 85018; 85025; 87070; 87081; 87205; 90686; 93005; 93010; 93308; 93321; 93880; 94640; 94760; 96374; 96376; 97110; 97116; 97140; 97162; 97166; 97530; 97535; 99285-25; A9270; A9270-GY; G0008; G0378; J1650; J1815; J3010; Q0163; Q9967

== ENCOUNTER 2019-05-18 18:35 | Observation (INO) | payer MEDICARE, OTHER ==
[~2019-05-18] VITALS: Ht 182.9 cm; Wt 106.1 kg
[~2019-05-18 18:35] MED LIST changes: +Amaryl1 MG PO; +Aspir 8181 MG PO; +CITA20 PO; +Loratadine10 MG PO; +Oxycodone-Apap1 EAC3 PO; +Potassium20 MEQ/11 PO
[2019-05-18] MEDS ORDERED: ELIQUIS5 M3 PO (19:01)
[2019-05-18 19:16] LABS: BASOPHILS ABSOLUTE AUTO 0.09 K/mm3 (0.00-0.23); BASOPHILS PERCENT AUTO 1 % (0-2); EOSINOPHILS ABSOLUTE AUTO 0.45 K/mm3 (0.00-0.68); EOSINOPHILS PERCENT AUTO 6 % (0-6); Hematocrit 23.9 % (37.0-53.0); Hemoglobin 6.9 g/dL (13.5-17.5); IMMATURE GRAN ABSOLUTE AUTO 0.06 K/mm3 (0.00-0.10); IMMATURE GRAN PERCENT AUTO 1 % (0-1); LYMPHOCYTES ABSOLUTE AUTO 1.57 K/mm3 (0.84-5.20); LYMPHOCYTES PERCENT AUTO 21 % (21-46); MONOCYTES ABSOLUTE AUTO 0.98 K/mm3 (0.16-1.47); MONOCYTES PERCENT AUTO 13 % (4-13); Mean Corpuscular HGB 22.8 pg (26.0-34.0); Mean Corpuscular HGB Conc 28.9 g/dL (31.5-36.5); Mean Corpuscular Volume 79 fL (80-100); Mean Platelet Volume 8.6 fL (9.1-12.4); NEUTROPHILS ABSOLUTE AUTO 4.17 K/mm3 (1.96-9.15); NEUTROPHILS PERCENT AUTO 57 % (41-73); NRBC ABSOLUTE 0.02 K/mm3 (0.00-0.02); NRBC Auto 0.3 /100 WBC (0.0-0.2); Platelet Count 272 K/mm3 (150-400); RDW Coefficient Variation 16.3 % (11.7-14.2); RDW Standard Deviation 46.9 fL (35.1-46.3); Red Blood Cell Count 3.02 M/mm3 (4.30-5.90); White Blood Cell Count 7.32 K/mm3 (4.00-11.30)
[2019-05-18 19:39] LABS: Troponin I <0.015 ng/mL (0.000-0.040)
[2019-05-18 19:41] LABS: Alanine Aminotransfer (ALT/SGP 9 U/L (12-78); Albumin, Blood 2.4 g/dL (3.4-5.0); Albumin/Globulin Ratio 0.5 (0.8-1.8); Alk Phos 128 U/L (50-136); Anion Gap 6 mmol/L (6-16); Aspartate Aminotrans (AST/SGOT 20 U/L (12-37); Bilirubin, Total 0.8 mg/dL (0.1-1.0); Blood Urea Nitrogen 19 mg/dL (8-24); Bun/Creatinine Ratio 21.7 (12.0-20.0); CO2, Blood 28 mmol/L (21-32); Calcium, Blood 7.9 mg/dL (8.5-10.1); Chloride, Blood 100 mmol/L (98-108); Creatinine, Blood 0.88 mg/dL (0.60-1.20); Globulin, Blood 5.2 g/dL (2.2-4.0); Glomerular Filtration Rate >60 (60-); Glucose, Blood 117 mg/dL (70-99); Potassium, Blood 4.7 mmol/L (3.5-5.5); Sodium, Blood 134 mmol/L (136-145); Total Protein, Blood 7.6 g/dL (6.4-8.2)
[2019-05-18 21:45] LABS: Source, Urine Clean Catch
[2019-05-18 21:50] LABS: Bilirubin, Urine Neg (Neg); Blood, Urine Neg (Neg); Glucose Qualitative, Urine Neg (Neg); Ketones, Urine Neg (Neg); Leukocyte Esterase, Urine Neg (Neg); Nitrite, Urine Neg (Neg); Protein, Urine Neg (Neg); Urobilinogen, Urine NORM (Normal)
[2019-05-18 21:56] LABS: Appearance, Urine Clear (Clear); Color, Urine Yellow (P-Yellow)
--- NOTE | 2019-05-19 00:30 | NUR ---
RECEIVED HAND OFF FROM Arun JEAN RN USING SBAR. TRANSPORTED TO ROOM PCU 4 VIA STRETCHER AT 2320HRS. TRANSFERED TO BED WITH FULL STAFF ASSISTANCE, TOLERATED WELL. AAO X3, MONTOYA, FOLLOWS ALL COMMANDS. ORIENTED TO ROOM, CALL SYSTEM, AND POC, VOICES UNDERSTANDING. RESPIRATIONS EVEN BUT LABORED ON O2 AT 2L/NC, VSS OTHERWISE STABLE. UNIT 1 OF 1 PRBC'S INFUSING AT THIS TIME AFTER HAVING BEEN STARTED IN ER. CONTINUING DOCUMENTATION VIA UNIT ISSUE REPORT. PAIN REPORTED OF 7/10 TO BACK AND BLE, ADMINSTERED PAIN MED PER EMAR. WOUND CARE PROVIDED TO BLE, PICS TO CHART. ADMISSION ASSESSMENT IN PROGRESS. NEEDS AND WANTS TO BE ASSISTED PRN. SAFETY MEASURES IN PLACE. WILL CONTINUE TO MONITOR.
[2019-05-19] MEDS ORDERED: SILVER SULFADIA50 G1 TOP (02:51)
[2019-05-19] MEDS ORDERED: Pedi-Dri 100,0060 GM TOP (02:53)
[2019-05-19 04:06] LABS: BASOPHILS ABSOLUTE AUTO 0.11 K/mm3 (0.00-0.23); BASOPHILS PERCENT AUTO 1 % (0-2); EOSINOPHILS ABSOLUTE AUTO 0.47 K/mm3 (0.00-0.68); EOSINOPHILS PERCENT AUTO 6 % (0-6); Hematocrit 25.2 % (37.0-53.0); Hemoglobin 7.5 g/dL (13.5-17.5); IMMATURE GRAN ABSOLUTE AUTO 0.09 K/mm3 (0.00-0.10); IMMATURE GRAN PERCENT AUTO 1 % (0-1); LYMPHOCYTES ABSOLUTE AUTO 1.47 K/mm3 (0.84-5.20); LYMPHOCYTES PERCENT AUTO 19 % (21-46); MONOCYTES ABSOLUTE AUTO 1.22 K/mm3 (0.16-1.47); MONOCYTES PERCENT AUTO 15 % (4-13); Mean Corpuscular HGB 23.7 pg (26.0-34.0); Mean Corpuscular HGB Conc 29.8 g/dL (31.5-36.5); Mean Corpuscular Volume 80 fL (80-100); Mean Platelet Volume 8.7 fL (9.1-12.4); NEUTROPHILS ABSOLUTE AUTO 4.55 K/mm3 (1.96-9.15); NEUTROPHILS PERCENT AUTO 58 % (41-73); Platelet Count 276 K/mm3 (150-400); RDW Coefficient Variation 16.2 % (11.7-14.2); Red Blood Cell Count 3.17 M/mm3 (4.30-5.90); White Blood Cell Count 7.91 K/mm3 (4.00-11.30)
[2019-05-19 04:31] LABS: Anion Gap 7 mmol/L (6-16); Blood Urea Nitrogen 19 mg/dL (8-24); Bun/Creatinine Ratio 22.2 (12.0-20.0); CO2, Blood 27 mmol/L (21-32); Calcium, Blood 8.1 mg/dL (8.5-10.1); Chloride, Blood 101 mmol/L (98-108); Creatinine, Blood 0.85 mg/dL (0.60-1.20); Glomerular Filtration Rate >60 (60-); Glucose, Blood 83 mg/dL (70-99); Potassium, Blood 4.7 mmol/L (3.5-5.5); Sodium, Blood 135 mmol/L (136-145)
--- NOTE | 2019-05-19 05:58 | NUR ---
SHIFT SUMMARY LYING IN SEMI FOWLERS WITH EYES CLOSED. HAS BEEN AWAKE AND ACTIVE SINCE ADMISSION. WILL ADDRESS FURTHER NEEDS THEY ARISE. SAFETY MEASURES IN PLACE. WILL GIVE HAND OFF TO ONCOMING SHIFT USING SBAR.
--- NOTE | 2019-05-19 06:10 | NUR ---
PT REQUESTED SLEEPING MEDS TO HELP HIM SLEEP. WHEN NURSING EXPLAINED THAT SLEEPING MEDS WERE NOT PROVIDED FOR DAY TIME DUE TO MD ROUNDING AND DIAGNOSTIC TESTING. PT BEGAN WHIMPERING AND STATING THE HE WAS JUST VERY TIRED. NURSING REITERATED SMALL NAPS MAY HER RE ENERGISE HIM. HE THEN BEGAN ASKING ABOUT WHEN HIS NEXT PAIN MED WAS AVAILABLE. NURSING INFORMED HIM THAT 20 MINUTES WAS THE EARLIEST THAT PAIN MEDS WOULD BE AVAILABLE. VERBALIZED UNDERSTANDING. SAFETY MEASURES IN PLACE. WILL CONTINUE TO MONITOR.
[2019-05-19 08:45] LABS: Hemoglobin 7.6 g/dL (13.5-17.5)
--- NOTE | 2019-05-19 18:59 | NUR ---
SHIFT SUMMARY PT RECEIVED 1 UNIT PRBC ON MY SHIFT AND A TOTAL OF 2 UNITS PRBC SINCE ADMIT. PT TOLERATED TRANSFUSION WELL. PT HAS REMAINED IN A-FIB CONTROLED RATE THROUGHOUT SHIFT. FAMILY REPORTED THAT PT HAD DARK COLORED BM'S AT HOME AND WERE CONCERNED FOR A GI BLEED. PASSED THIS INFO ON TO DR. SOTO AND ORDERS TO STOP ELIQUIS RECEIVED. REPEAT H/H ORDERED FOR 1929.
[2019-05-19 20:36] LABS: BASOPHILS ABSOLUTE AUTO 0.13 K/mm3 (0.00-0.23); BASOPHILS PERCENT AUTO 2 % (0-2); EOSINOPHILS ABSOLUTE AUTO 0.53 K/mm3 (0.00-0.68); EOSINOPHILS PERCENT AUTO 7 % (0-6); Hemoglobin 8.3 g/dL (13.5-17.5); IMMATURE GRAN ABSOLUTE AUTO 0.07 K/mm3 (0.00-0.10); IMMATURE GRAN PERCENT AUTO 1 % (0-1); LYMPHOCYTES ABSOLUTE AUTO 1.41 K/mm3 (0.84-5.20); LYMPHOCYTES PERCENT AUTO 18 % (21-46); MONOCYTES ABSOLUTE AUTO 1.45 K/mm3 (0.16-1.47); MONOCYTES PERCENT AUTO 18 % (4-13); Mean Corpuscular HGB 24.3 pg (26.0-34.0); Mean Corpuscular HGB Conc 29.6 g/dL (31.5-36.5); Mean Corpuscular Volume 82 fL (80-100); Mean Platelet Volume 8.5 fL (9.1-12.4); NEUTROPHILS PERCENT AUTO 55 % (41-73); Platelet Count 268 K/mm3 (150-400); RDW Coefficient Variation 16.7 % (11.7-14.2); RDW Standard Deviation 49.8 fL (35.1-46.3); Red Blood Cell Count 3.42 M/mm3 (4.30-5.90); White Blood Cell Count 7.99 K/mm3 (4.00-11.30)
--- NOTE | 2019-05-19 22:16 | NUR ---
START OF SHIFT: REPORT FROM ELVIRA NIEVES. INTRODUCED SELF TO PT. PT A+O X4, VSS. PT C/O SEVERE PAIN PARTICULARLY IN RIGHT FOOT. PT REPOSITIONED FOR COMFORT AND RIGHT FOOT ELEVATED OFF OF BED WITH NO RELIEF. BILAT FEET HAVE KURLIX DRESSINGS IN PLACE C/ SEROUS DRAINAGE T/O. WILL CHANGE DRESSINGS THIS SHIFT. HOSPITLIST NOTIFIED: NEW ORDER FOR FENTANYL (SEE ORDER), PT HAS BEEN RESTING QUIETLY SINCE INITIAL DOSE OF FENTANYL. SATS REMAINING 100%. PT'S SPOUSED CALLED FOR UPDATE. WILL CONTINUE TO MONITOR.
--- NOTE | 2019-05-19 23:14 | NUR ---
WOUND CARE AND DRESSING CHANGE TO BILAT FEET. ABSORBING DRESSING UNDER BILAT LOWER EXT. PT TURNED TO RIGHT SIDE. PT USED URINAL. CALL LIGHT WITHIN REACH.
[2019-05-20 04:05] LABS: BASOPHILS ABSOLUTE AUTO 0.13 K/mm3 (0.00-0.23); BASOPHILS PERCENT AUTO 2 % (0-2); EOSINOPHILS ABSOLUTE AUTO 0.58 K/mm3 (0.00-0.68); EOSINOPHILS PERCENT AUTO 8 % (0-6); Hematocrit 28.5 % (37.0-53.0); Hemoglobin 8.3 g/dL (13.5-17.5); IMMATURE GRAN ABSOLUTE AUTO 0.06 K/mm3 (0.00-0.10); IMMATURE GRAN PERCENT AUTO 1 % (0-1); LYMPHOCYTES ABSOLUTE AUTO 1.24 K/mm3 (0.84-5.20); LYMPHOCYTES PERCENT AUTO 16 % (21-46); MONOCYTES ABSOLUTE AUTO 1.13 K/mm3 (0.16-1.47); MONOCYTES PERCENT AUTO 15 % (4-13); Mean Corpuscular HGB 23.8 pg (26.0-34.0); Mean Corpuscular HGB Conc 29.1 g/dL (31.5-36.5); Mean Corpuscular Volume 82 fL (80-100); Mean Platelet Volume 8.7 fL (9.1-12.4); NEUTROPHILS ABSOLUTE AUTO 4.53 K/mm3 (1.96-9.15); NEUTROPHILS PERCENT AUTO 59 % (41-73); Platelet Count 268 K/mm3 (150-400); RDW Coefficient Variation 16.8 % (11.7-14.2); RDW Standard Deviation 49.7 fL (35.1-46.3); Red Blood Cell Count 3.49 M/mm3 (4.30-5.90); White Blood Cell Count 7.67 K/mm3 (4.00-11.30)
--- NOTE | 2019-05-20 06:05 | NUR ---
UPDATE: PT C/O INTENSE ITCHING AND PAIN TO RIGHT LOWER LEG THIS AM. PT'S LEG FURTHER ELEVATED, LOTION APPLIED, BENEADRYL GIVEN, PERCOCET, ALL WITH NO RELIEF. AFTER SEVERAL LEG REPOSITIONINGS, RUBS, AND ATTEMPTS TO RELIEVE PT OF THE INTENSE, "PAINFUL ITCH", PT GIVEN FENTANYL WITHIN THE ALLOWED 30 MIN OF DUE TIME. PT CURRENTLY RESTING QUIETLY, SATS REMAINING >95%. WILL CONTINUE TO MONITOR.
--- NOTE | 2019-05-20 07:25 | NUR ---
PT PEDIATRIC DIETICIAN LIGHT EVERY 2-5 MINUTES REQUESTING PAIN MEDICATIONS, THIS RN TO ROOM NUMEROUS TIMES TO REMIND PT THAT HE WAS RECENTLY MEDICATED, WHILE THIS RN EDUCATING PT PT NOTED TO BE DROWSY AND NODDING OFF WHILE TALKING TO HIM
--- NOTE | 2019-05-20 08:50 | NUR ---
DR SOTO MADE AWARE OF CBG OF 59, ORDER TO GIVE OJ
--- NOTE | 2019-05-20 19:05 | NUR ---
PT' FAMILY STATED THEY WOULD PICK HIM UP AT 4PM, SON-IN-LAW ARRIVED JUST AFTER 5PM. DISCHARGE INSTRUCTIONS DISCUSSED WITH SON-IN-LAW. PT PREPED FOR DC, BELONGINGS GATHERED. PT TAKEN TO VEHICLE VIA WC WITH BOTH PCT'S TO ASSIST. PT DC'D HOME IN STABLE CONDITION AT 1735.
== END 2019-05-20 17:29 | disposition home or self-care (01) ==
LOC: ER 18:35 → PCU 18:36 → ER 21:39 → PCU 21:39
PROVIDERS: Emergency Medicine; Hospitalist; ADMIT Internal Medicine
PROC: 30243N1 Transfusion of Nonautologous Red Blood Cells into Central Vein, Percutaneous Approach (ICD-10-PCS; principal; 2019-05-18)
DX: D50.9 Iron deficiency anemia, unspecified (principal); I13.0 Hypertensive heart and chronic kidney disease with heart failure and stage 1 through stage 4 chronic kidney disease, or unspecified chronic kidney disease; E11.22 Type 2 diabetes mellitus with diabetic chronic kidney disease; N18.2 Chronic kidney disease, stage 2 (mild); I50.22 Chronic systolic (congestive) heart failure; I48.91 Unspecified atrial fibrillation; E11.51 Type 2 diabetes mellitus with diabetic peripheral angiopathy without gangrene; G47.30 Sleep apnea, unspecified; K21.9 Gastro-esophageal reflux disease without esophagitis; E11.40 Type 2 diabetes mellitus with diabetic neuropathy, unspecified; J43.9 Emphysema, unspecified; E66.01 Morbid (severe) obesity due to excess calories; Z68.31 Body mass index [BMI] 31.0-31.9, adult; Z88.0 Allergy status to penicillin; Z91.018 Allergy to other foods; Z79.84 Long term (current) use of oral hypoglycemic drugs; Z79.82 Long term (current) use of aspirin; Z79.01 Long term (current) use of anticoagulants; Z79.51 Long term (current) use of inhaled steroids; Z79.899 Other long term (current) drug therapy; Z91.19 Patient's noncompliance with other medical treatment and regimen; Z99.81 Dependence on supplemental oxygen; Z86.73 Personal history of transient ischemic attack (TIA), and cerebral infarction without residual deficits; Z87.891 Personal history of nicotine dependence
CPT/HCPCS: 36415; 36430; 71046; 80048; 80053; 81003; 82947; 83735; 84443; 84484; 85014; 85018; 85025; 86850; 86900; 86901; 86923; 87081; 93005; 93010; 94762; 96361; 96374; 96375; 96376; 97110; 97116; 97161; 99285-25; C9113; G0378; J2270; J2405; J2916; J3010; J7030; P9016; Q0163

== ENCOUNTER 2019-05-22 13:35 | Day surgery (SDC) | payer MEDICARE, OTHER ==
[~2019-05-22 13:35] MED LIST changes: +ELIQUIS5 M3 PO
== END 2019-05-22 22:58 | disposition home or self-care (01) ==
LOC: WOUND 13:35
DX: E11.622 Type 2 diabetes mellitus with other skin ulcer (principal); L97.512 Non-pressure chronic ulcer of other part of right foot with fat layer exposed; L97.521 Non-pressure chronic ulcer of other part of left foot limited to breakdown of skin; L97.812 Non-pressure chronic ulcer of other part of right lower leg with fat layer exposed; L97.822 Non-pressure chronic ulcer of other part of left lower leg with fat layer exposed; E11.52 Type 2 diabetes mellitus with diabetic peripheral angiopathy with gangrene; I96 Gangrene, not elsewhere classified; G47.33 Obstructive sleep apnea (adult) (pediatric); I48.91 Unspecified atrial fibrillation; J44.9 Chronic obstructive pulmonary disease, unspecified; I13.0 Hypertensive heart and chronic kidney disease with heart failure and stage 1 through stage 4 chronic kidney disease, or unspecified chronic kidney disease; E11.22 Type 2 diabetes mellitus with diabetic chronic kidney disease; N18.2 Chronic kidney disease, stage 2 (mild); I50.20 Unspecified systolic (congestive) heart failure; G89.29 Other chronic pain; M54.9 Dorsalgia, unspecified; E11.36 Type 2 diabetes mellitus with diabetic cataract; H26.9 Unspecified cataract; M10.9 Gout, unspecified; K21.9 Gastro-esophageal reflux disease without esophagitis; I87.2 Venous insufficiency (chronic) (peripheral); E66.9 Obesity, unspecified; Z68.30 Body mass index [BMI] 30.0-30.9, adult; Z91.018 Allergy to other foods; Z88.0 Allergy status to penicillin; Z79.82 Long term (current) use of aspirin; Z79.51 Long term (current) use of inhaled steroids; Z79.01 Long term (current) use of anticoagulants; Z79.899 Other long term (current) drug therapy; Z87.891 Personal history of nicotine dependence
CPT/HCPCS: G0463

== ENCOUNTER 2019-05-25 22:47 | Emergency (ER) | payer MEDICARE, OTHER ==
[~2019-05-25] VITALS: Ht 182.9 cm; Wt 111.1 kg
[2019-05-25 23:23] LABS: BASOPHILS ABSOLUTE AUTO 0.07 K/mm3 (0.00-0.23); BASOPHILS PERCENT AUTO 1 % (0-2); EOSINOPHILS ABSOLUTE AUTO 0.36 K/mm3 (0.00-0.68); EOSINOPHILS PERCENT AUTO 6 % (0-6); Hematocrit 27.2 % (37.0-53.0); IMMATURE GRAN ABSOLUTE AUTO 0.07 K/mm3 (0.00-0.10); IMMATURE GRAN PERCENT AUTO 1 % (0-1); LYMPHOCYTES ABSOLUTE AUTO 1.43 K/mm3 (0.84-5.20); LYMPHOCYTES PERCENT AUTO 23 % (21-46); MONOCYTES ABSOLUTE AUTO 0.93 K/mm3 (0.16-1.47); MONOCYTES PERCENT AUTO 15 % (4-13); Mean Corpuscular HGB 24.5 pg (26.0-34.0); Mean Corpuscular HGB Conc 29.4 g/dL (31.5-36.5); Mean Corpuscular Volume 83 fL (80-100); Mean Platelet Volume 8.6 fL (9.1-12.4); NEUTROPHILS ABSOLUTE AUTO 3.24 K/mm3 (1.96-9.15); NEUTROPHILS PERCENT AUTO 53 % (41-73); Platelet Count 211 K/mm3 (150-400); RDW Coefficient Variation 20.4 % (11.7-14.2); RDW Standard Deviation 58.7 fL (35.1-46.3); Red Blood Cell Count 3.27 M/mm3 (4.30-5.90)
[2019-05-25 23:37] LABS: Alanine Aminotransfer (ALT/SGP 9 U/L (12-78); Albumin, Blood 2.5 g/dL (3.4-5.0); Albumin/Globulin Ratio 0.5 (0.8-1.8); Alk Phos 148 U/L (50-136); Anion Gap 6 mmol/L (6-16); Aspartate Aminotrans (AST/SGOT 23 U/L (12-37); Bilirubin, Total 0.9 mg/dL (0.1-1.0); Blood Urea Nitrogen 20 mg/dL (8-24); CO2, Blood 27 mmol/L (21-32); Calcium, Blood 7.9 mg/dL (8.5-10.1); Chloride, Blood 100 mmol/L (98-108); Creatinine, Blood 0.87 mg/dL (0.60-1.20); Globulin, Blood 4.9 g/dL (2.2-4.0); Glomerular Filtration Rate >60 (60-); Glucose, Blood 74 mg/dL (70-99); Potassium, Blood 4.3 mmol/L (3.5-5.5); Sodium, Blood 133 mmol/L (136-145); Total Protein, Blood 7.4 g/dL (6.4-8.2); Troponin I <0.015 ng/mL (0.000-0.040)
== END 2019-05-26 00:55 | disposition home or self-care (01) ==
LOC: ER 22:47
PROVIDERS: Physician Assistant
DX: I11.0 Hypertensive heart disease with heart failure (principal); I50.9 Heart failure, unspecified; E11.9 Type 2 diabetes mellitus without complications; I48.91 Unspecified atrial fibrillation; Z88.0 Allergy status to penicillin; Z91.018 Allergy to other foods; Z79.899 Other long term (current) drug therapy; Z79.84 Long term (current) use of oral hypoglycemic drugs; Z79.82 Long term (current) use of aspirin; Z79.01 Long term (current) use of anticoagulants; Z99.81 Dependence on supplemental oxygen; Z87.891 Personal history of nicotine dependence
CPT/HCPCS: 71045; 80053; 83880; 84484; 85025; 96374; 96375; 99284-25; J1940; J3010

== ENCOUNTER 2019-06-01 18:34 | Emergency (ER) | payer MEDICARE, OTHER ==
[~2019-06-01] VITALS: Ht 182.9 cm; Wt 108.9 kg
[2019-06-01 19:05] LABS: BASOPHILS ABSOLUTE AUTO 0.08 K/mm3 (0.00-0.23); BASOPHILS PERCENT AUTO 1 % (0-2); EOSINOPHILS ABSOLUTE AUTO 0.26 K/mm3 (0.00-0.68); EOSINOPHILS PERCENT AUTO 3 % (0-6); Hematocrit 26.4 % (37.0-53.0); Hemoglobin 7.8 g/dL (13.5-17.5); IMMATURE GRAN ABSOLUTE AUTO 0.05 K/mm3 (0.00-0.10); IMMATURE GRAN PERCENT AUTO 1 % (0-1); LYMPHOCYTES ABSOLUTE AUTO 1.33 K/mm3 (0.84-5.20); LYMPHOCYTES PERCENT AUTO 16 % (21-46); MONOCYTES ABSOLUTE AUTO 1.19 K/mm3 (0.16-1.47); MONOCYTES PERCENT AUTO 14 % (4-13); Mean Corpuscular HGB 24.2 pg (26.0-34.0); Mean Corpuscular HGB Conc 29.5 g/dL (31.5-36.5); Mean Corpuscular Volume 82 fL (80-100); Mean Platelet Volume 8.8 fL (9.1-12.4); NEUTROPHILS ABSOLUTE AUTO 5.45 K/mm3 (1.96-9.15); NEUTROPHILS PERCENT AUTO 65 % (41-73); Platelet Count 226 K/mm3 (150-400); RDW Coefficient Variation 19.4 % (11.7-14.2); RDW Standard Deviation 57.8 fL (35.1-46.3); Red Blood Cell Count 3.22 M/mm3 (4.30-5.90); White Blood Cell Count 8.36 K/mm3 (4.00-11.30)
[2019-06-01 19:39] LABS: Alanine Aminotransfer (ALT/SGP 9 U/L (12-78); Albumin, Blood 2.4 g/dL (3.4-5.0); Albumin/Globulin Ratio 0.5 (0.8-1.8); Alk Phos 141 U/L (50-136); Anion Gap 7 mmol/L (6-16); Aspartate Aminotrans (AST/SGOT 23 U/L (12-37); Blood Urea Nitrogen 22 mg/dL (8-24); Bun/Creatinine Ratio 20.4 (12.0-20.0); CO2, Blood 26 mmol/L (21-32); Calcium, Blood 7.7 mg/dL (8.5-10.1); Chloride, Blood 97 mmol/L (98-108); Creatinine, Blood 1.08 mg/dL (0.60-1.20); Glomerular Filtration Rate >60 (60-); Glucose, Blood 109 mg/dL (70-99); Potassium, Blood 4.3 mmol/L (3.5-5.5); Sodium, Blood 130 mmol/L (136-145); Total Protein, Blood 7.4 g/dL (6.4-8.2); Troponin I <0.015 ng/mL (0.000-0.040)
[2019-06-01] MEDS ORDERED: Zithromax250 MG PO (20:56)
== END 2019-06-01 21:39 | disposition home or self-care (01) ==
LOC: ER 18:34
PROVIDERS: Emergency Medicine
DX: J18.9 Pneumonia, unspecified organism (principal); I13.0 Hypertensive heart and chronic kidney disease with heart failure and stage 1 through stage 4 chronic kidney disease, or unspecified chronic kidney disease; E11.22 Type 2 diabetes mellitus with diabetic chronic kidney disease; I50.9 Heart failure, unspecified; N18.9 Chronic kidney disease, unspecified; D63.1 Anemia in chronic kidney disease; E11.40 Type 2 diabetes mellitus with diabetic neuropathy, unspecified; I48.20 Chronic atrial fibrillation, unspecified; K21.9 Gastro-esophageal reflux disease without esophagitis; E78.5 Hyperlipidemia, unspecified; G47.30 Sleep apnea, unspecified; F32.9 Major depressive disorder, single episode, unspecified; Z88.0 Allergy status to penicillin; Z91.018 Allergy to other foods; Z79.899 Other long term (current) drug therapy; Z79.84 Long term (current) use of oral hypoglycemic drugs; Z79.82 Long term (current) use of aspirin; Z79.01 Long term (current) use of anticoagulants
CPT/HCPCS: 71046; 80053; 83880; 84484; 85025; 93005; 93010; 94640; 96374; 99285-25; J3010

== ENCOUNTER 2019-06-05 13:34 | Day surgery (SDC) | payer MEDICARE, OTHER ==
[~2019-06-05 13:34] MED LIST changes: +Zithromax250 MG PO
[2019-06-05] MEDS ORDERED: MONT10T PO (17:27)
== END 2019-06-05 22:45 | disposition home or self-care (01) ==
LOC: WOUND
DX: E11.621 Type 2 diabetes mellitus with foot ulcer (principal); L97.512 Non-pressure chronic ulcer of other part of right foot with fat layer exposed; L97.822 Non-pressure chronic ulcer of other part of left lower leg with fat layer exposed; E11.52 Type 2 diabetes mellitus with diabetic peripheral angiopathy with gangrene; I96 Gangrene, not elsewhere classified; E11.36 Type 2 diabetes mellitus with diabetic cataract; H26.9 Unspecified cataract; I87.2 Venous insufficiency (chronic) (peripheral); J44.9 Chronic obstructive pulmonary disease, unspecified; G47.30 Sleep apnea, unspecified; M10.9 Gout, unspecified; Z79.82 Long term (current) use of aspirin; Z79.84 Long term (current) use of oral hypoglycemic drugs; Z79.01 Long term (current) use of anticoagulants; Z79.899 Other long term (current) drug therapy; Z88.0 Allergy status to penicillin; Z88.1 Allergy status to other antibiotic agents; Z91.018 Allergy to other foods
CPT/HCPCS: 87070; 87205; G0463

== ENCOUNTER 2019-06-05 15:30 | Inpatient (IN) | payer MEDICARE, OTHER ==
[~2019-06-05] VITALS: Ht 182.9 cm; Wt 107.9 kg
[2019-06-05 16:04] LABS: Influenza A Negative (NEGATIVE); Influenza B Negative (NEGATIVE)
[2019-06-05 16:08] LABS: BASOPHILS ABSOLUTE AUTO 0.07 K/mm3 (0.00-0.23); BASOPHILS PERCENT AUTO 1 % (0-2); EOSINOPHILS ABSOLUTE AUTO 0.45 K/mm3 (0.00-0.68); EOSINOPHILS PERCENT AUTO 6 % (0-6); Hematocrit 29.3 % (37.0-53.0); Hemoglobin 8.6 g/dL (13.5-17.5); IMMATURE GRAN ABSOLUTE AUTO 0.06 K/mm3 (0.00-0.10); IMMATURE GRAN PERCENT AUTO 1 % (0-1); LYMPHOCYTES ABSOLUTE AUTO 1.08 K/mm3 (0.84-5.20); LYMPHOCYTES PERCENT AUTO 14 % (21-46); MONOCYTES ABSOLUTE AUTO 1.09 K/mm3 (0.16-1.47); MONOCYTES PERCENT AUTO 14 % (4-13); Mean Corpuscular HGB Conc 29.4 g/dL (31.5-36.5); Mean Corpuscular Volume 82 fL (80-100); Mean Platelet Volume 8.9 fL (9.1-12.4); NEUTROPHILS ABSOLUTE AUTO 5.21 K/mm3 (1.96-9.15); NEUTROPHILS PERCENT AUTO 65 % (41-73); Platelet Count 312 K/mm3 (150-400); RDW Coefficient Variation 19.1 % (11.7-14.2); RDW Standard Deviation 56.7 fL (35.1-46.3); Red Blood Cell Count 3.58 M/mm3 (4.30-5.90); White Blood Cell Count 7.96 K/mm3 (4.00-11.30)
[2019-06-05 16:29] LABS: Troponin I <0.015 ng/mL (0.000-0.040)
[2019-06-05 16:39] LABS: Alanine Aminotransfer (ALT/SGP 11 U/L (12-78); Albumin, Blood 2.5 g/dL (3.4-5.0); Albumin/Globulin Ratio 0.5 (0.8-1.8); Alk Phos 130 U/L (50-136); Anion Gap 6 mmol/L (6-16); Aspartate Aminotrans (AST/SGOT 30 U/L (12-37); Blood Urea Nitrogen 30 mg/dL (8-24); Bun/Creatinine Ratio 24.2 (12.0-20.0); CO2, Blood 25 mmol/L (21-32); Calcium, Blood 8.1 mg/dL (8.5-10.1); Chloride, Blood 95 mmol/L (98-108); Creatinine, Blood 1.24 mg/dL (0.60-1.20); Globulin, Blood 5.3 g/dL (2.2-4.0); Glomerular Filtration Rate 60 (60-); Potassium, Blood 5.7 mmol/L (3.5-5.5); Sodium, Blood 126 mmol/L (136-145); Total Protein, Blood 7.8 g/dL (6.4-8.2)
[2019-06-05 16:40] LABS: Glucose, Blood 34 mg/dL (70-99)
[2019-06-05] MEDS ORDERED: MONT10T PO (17:27)
[2019-06-05 17:31] LABS: International Normalized Ratio 1.7; Prothrombin Time Results 17.2 Sec (9.7-11.5)
[2019-06-05 19:03] LABS: Magnesium, Blood 2.2 mg/dL (1.6-2.4); Phosphorus, Blood 4.2 mg/dL (2.5-4.9)
[2019-06-05 22:38] LABS: Anion Gap 9 mmol/L (6-16); Blood Urea Nitrogen 31 mg/dL (8-24); Bun/Creatinine Ratio 25.8 (12.0-20.0); CO2, Blood 23 mmol/L (21-32); Chloride, Blood 96 mmol/L (98-108); Glomerular Filtration Rate >60 (60-); Glucose, Blood 74 mg/dL (70-99); Potassium, Blood 5.7 mmol/L (3.5-5.5); Sodium, Blood 128 mmol/L (136-145)
[2019-06-06 03:47] LABS: BASOPHILS ABSOLUTE AUTO 0.09 K/mm3 (0.00-0.23); BASOPHILS PERCENT AUTO 1 % (0-2); EOSINOPHILS ABSOLUTE AUTO 0.49 K/mm3 (0.00-0.68); EOSINOPHILS PERCENT AUTO 6 % (0-6); Hematocrit 28.1 % (37.0-53.0); Hemoglobin 8.1 g/dL (13.5-17.5); IMMATURE GRAN ABSOLUTE AUTO 0.05 K/mm3 (0.00-0.10); IMMATURE GRAN PERCENT AUTO 1 % (0-1); LYMPHOCYTES ABSOLUTE AUTO 1.04 K/mm3 (0.84-5.20); LYMPHOCYTES PERCENT AUTO 13 % (21-46); MONOCYTES ABSOLUTE AUTO 1.74 K/mm3 (0.16-1.47); MONOCYTES PERCENT AUTO 21 % (4-13); Mean Corpuscular HGB 23.5 pg (26.0-34.0); Mean Corpuscular HGB Conc 28.8 g/dL (31.5-36.5); Mean Corpuscular Volume 82 fL (80-100); Mean Platelet Volume 8.9 fL (9.1-12.4); NEUTROPHILS ABSOLUTE AUTO 4.89 K/mm3 (1.96-9.15); NEUTROPHILS PERCENT AUTO 59 % (41-73); Platelet Count 313 K/mm3 (150-400); RDW Coefficient Variation 18.9 % (11.7-14.2); RDW Standard Deviation 55.4 fL (35.1-46.3); Red Blood Cell Count 3.44 M/mm3 (4.30-5.90)
[2019-06-06 04:02] LABS: Anion Gap 7 mmol/L (6-16); Blood Urea Nitrogen 31 mg/dL (8-24); Bun/Creatinine Ratio 25.4 (12.0-20.0); CO2, Blood 24 mmol/L (21-32); Calcium, Blood 7.8 mg/dL (8.5-10.1); Chloride, Blood 97 mmol/L (98-108); Creatinine, Blood 1.22 mg/dL (0.60-1.20); Glomerular Filtration Rate >60 (60-); Glucose, Blood 66 mg/dL (70-99); Potassium, Blood 5.8 mmol/L (3.5-5.5); Sodium, Blood 128 mmol/L (136-145)
--- NOTE | 2019-06-06 05:33 | NUR ---
SHIFT SUMMARY PT SLEEPING IN ROOM COMFORTABLY AT THIS TIME. PT HAS HAD HYPOGLYCEMIA SINCE ARRIVAL TO UNIT. LOWEST CBG NOTED IN ED WAS 34. PT IS Q1HR CBG AND HAS REQUIRED TWO DOSES OF 25MG OF DEXTROSE 50% TO MAINTAIN BLOOD SUGARS. PT CONTINUES TO HAVE LOW BLOOD SUAGRS AND HOSPITALIST WAS NOTIFIED. PT NOW ON D5% 1/2 NS GTT AT 75ML/HR. PT IS AOX4 WHEN ASSESSED, AND REPORTS HE THINKS HES SEEING HIS DAUGHTERS IN THE ROOM AT TIMES. RESP OCCASIONALY UNEVEN AND LABORED ON 4.5L NC W/ SATS >92%. PT DENIED CP, AND ONLY REPORTS SOB W/ EXERTION OR WHEN LYING FLAT. WOUNDS WERE NOTED TO LYNNE MCCARTY. PT CAME TO ED FROM WOUND CLINIC TODAY AND WOUNDS HAS JUST BEEN DRESSED AND TREATED PRIOR TO ARRIVAL. AFTER DISCUSSION W/ DIGITAL SALES MANAGER DRESSINGS LEFT ON AT THIS TIME TO BE EVALUATED BY MORNING HOSPITALIST. PT ALSO HAD SMALL WOUND ON BUTTOCKS, MEPILEX PLACED. PICTURE TAKEN FOR CHART. PT REQUIRING PAIN MEDICATION Q2HRS FOR PAIN TO LEG WOUNDS. CALL LIGHT IN REACH.
--- NOTE | 2019-06-06 10:00 | NUR ---
Assumed care Pt appears lethargic but able to become more alert with interaction. Pt breathing tachypneic; audible coarse lung sounds and wheezing upon entering pt room. Pt with oxygen saturations 97-100% on 3L. Pt denies SOB or difficulty breathing. CBG obtained q1 hour per orders. MD Jordan in this AM with pt, per MD change to D10 NS gtt at 50ml/hr. Pt able to make needs known with call light, needs assistance with voiding and feeding. Pt's called this RN this AM, update given. See shift assessment for detailed systems assessment.
--- NOTE | 2019-06-06 13:16 | NUR ---
Granddaughter in with pt at this time; concerns expressed regarding pt's history of aspiration PNA. Pt with continued coarse LS throughout. MD Jordan called and notified of pt hx, of pt's weak effort and involvement in care. Chest xray ordered and ST eval and treat ordered per Dr. Jordan. Cxr tech in with pt now.
--- NOTE | 2019-06-06 13:23 | NUR ---
NPO at this time per protocol until ST can evaluate pt. Pt aware.
--- NOTE | 2019-06-06 14:11 | NUR ---
Pt sleeping at this time; just spoke with pt's daughter and update on pt condition given. Pt's daughter expressing concerns to this RN about "my dad's carotid arteries. they have clots. Can we take the clots out?" Pt's daughter educated on eliquis. Affirmed pt's daughter in concerns and will bring concerns to care team.
--- NOTE | 2019-06-06 14:52 | NUR ---
Pt with increased wheezes t/o; RT at bedside with neub tx. Will continue to monitor.
--- NOTE | 2019-06-06 15:08 | NUR ---
PROVIDER CALLED Pt with increased lethargy since lunch time. Pt appears pale in the face, abd remains firm. Provider called and made aware. Hbg+Hct ordered. VSS. Pt breathing even and unlabored. Pt has recieved fentanyl and Percocet given per orders this shift. Will continue to monitor.
--- NOTE | 2019-06-06 15:18 | NUR ---
Dr Jordan at bedside. Concerns addressed and orders for VBG recieved.
[2019-06-06 15:47] LABS: Base Excess Venous 0.1 mmol/L; Bicarbonate Venous 24.3 mmol/L (24.0-30.0); PCO2 Venous 40.9 mmHg (38-42); pH Blood Venous 7.39 (7.34-7.37)
[2019-06-06 16:05] LABS: Hematocrit 25.9 % (37.0-53.0); Hemoglobin 7.7 g/dL (13.5-17.5)
--- NOTE | 2019-06-06 16:10 | NUR ---
DR. Jordan made aware of HBG of 7.7; no new orders recieved at this time. Will continue to [facility]. VSS.
--- NOTE | 2019-06-06 22:58 | NUR ---
INCORRECT CBG NOTED HIGH CBG NOTED. SAMPLE WAS DRAWN OFF OF IV THAT HAD BEEN RUNNING DEXTROSE. NEW CBG OBTAINED AND RESULT WAS 60.
--- NOTE | 2019-06-07 00:30 | NUR ---
PT UPDATE PT AGGITATED AT STAFF AT THIS TIME YELLING AT STAFF "I KNOW MY RIGHTS I CAN HAVE WATER IF I WANT IT" PT AGAIN EDUCATED THAT HE WAS AN ASPIRATION RISK D/T ATTEMPTS EARLIER IN THE DAY TO DRINK WATER RESULTING IN PT COUGHING AND BEING UNABLE TO SWALLOW SMALL SIPS OF WATER SAFELY. PT REMAINS ANGRY AND REPORTS "I'LL WAKE UP THIS WHOLE [facility] GIVE ME WATER NOW! IT'S MY RIGHT IF I WANT TO KILL MYSELF WITH WATER". PT AGAIN ADVISED THAT IT WAS NOT SAFE D/T ASPIRATION RISK AND WAS OFFERED ORAL SWABS, MOUTH MOISTIORIZER AND LEMON GLYCERIN SWABS TO HELP W/ DRY MOUTH. PT AGAIN DEMANDING WATER AT THIS TIME. AND OFFERED ORAL MOUTH SWABS. PT EVENTUALLY ACCEPTING ORAL SWAB AND ORAL CARE. NOW REQUESTING FENTANYL FOR PAIN. ACCOUNT SUPPORT REP UPDATED ABOUT PT STATUS AND COMMENTS MADE.
--- NOTE | 2019-06-07 00:30 | NUR ---
PT UPDATE THIS RN TO ROOM TO MEDICATED PT AND CHECK CBG. THIS RN NOTES BLOOD AND PURULENT DRAINAGE FROM PT'S LEG WOUNDS ON SHEETS. OFFERED TO PERFORM LINEN CHANGE FOR PT. PT IRRITABLE WITH STAFF AT THIS TIME AND REFUSING BED CHANGE. PT EDUCATED THAT DIRTY LINIEN IS A CAUSE OF MORE BACTERIA TO GROW, PT AGAIN REFUSING BED CHANGE. WILL ATEMPT LATER.
--- NOTE | 2019-06-07 05:09 | NUR ---
SHIFT SUMMARY PT SLEEPING IN ROOM COMFORTBYL AT THIS TIME. PT HAS BEEN VERY AGGITATED WITH STAFF TONIGHT ABOUT NPO STATUS. PT HAD BEEN EDUCATED ABOUT ASPIRATION RISK AND THE NEED FOR PT TO BE EVALAUTED BY SPEECH THERAPY IN THE AM. SEE PREVIOOUS NOTES. RESP EVEN UNLABORED WITH VERY COARSE COUGH SATS >92% ON 2L NC. PT DENIES CP. MEDICATED FOR PAIN PER EMAR MULTIPLE TIMES T/O NIGHT. DRESSINGS ON LEG WOUNDS REINFORCED WITH KERLEX AND ABD PAD D/T WEEPING OF WOUNDS. PT CONSENTED TO LINEN CHANGE AFTER EXPLANATION THAT THE BLOOD AND PURULENT FLUID FROM WOUNDS ON CURRENT LINEN COULD CAUSE MORE BACERTIA IN THE WOUNDS. NO OTHER CHANGES IN STATUS. PT CGB LEVEL CONTINUES TO FLUCTUATE T/O NIGHT. PT WAS MEDICATED ONCE WITH 1AMP D50 PER EMAR. CBG HAVE SINCE RANGED FROM 142-91. D10% INFUSING IN PIV. CALL LIGHT IN REACH.
--- NOTE | 2019-06-07 08:10 | NUR ---
CARE ASSUMED CARE AND REPORT ASSUMED FROM BARTOLOME NIEVES. PT SITTING UPRIGHT IN BED WATCHING TV. C/O PAIN TO LEGS, 01/26. PERCOCET PO AND NEURONTIN GIVEN FOR PAIN. BLE ELEVATED AND DRESSINGS DRY AT THIS TIME; WILL CHANGE THIS AFTERNOON. PT ABLE TO TAKE PILLS WITH SMALL AMOUNT OF WATER; DOES COUGH SOME AFTER SWALLOWING. LUNG SOUNDS COARSE AND WHEEZY THROUGHOUT. SPO2 94% ON 3L NC. SPEECH EVAL AT BEDSIDE CURRENTLY FOR REEVAL. D10 INFUSING AT 50 ML/HR PER ORDER; BLOOD SUGAR 91. HR 70-110; AFIB. WILL MONITOR BLOOD SUGAR AND CONTINUE TO MONITOR PT. BREAKFAST HELD.
[2019-06-07 08:55] LABS: Hematocrit 25.9 % (37.0-53.0); Hemoglobin 7.7 g/dL (13.5-17.5); Mean Corpuscular HGB 23.5 pg (26.0-34.0); Mean Corpuscular HGB Conc 29.7 g/dL (31.5-36.5); Mean Platelet Volume 8.5 fL (9.1-12.4); Platelet Count 291 K/mm3 (150-400); RDW Coefficient Variation 19.1 % (11.7-14.2); RDW Standard Deviation 53.9 fL (35.1-46.3); Red Blood Cell Count 3.28 M/mm3 (4.30-5.90)
[2019-06-07 08:58] LABS: Mean Corpuscular Volume 79 fL (80-100)
[2019-06-07 09:10] LABS: Anion Gap 7 mmol/L (6-16); Blood Urea Nitrogen 30 mg/dL (8-24); Bun/Creatinine Ratio 27.8 (12.0-20.0); CO2, Blood 26 mmol/L (21-32); Chloride, Blood 96 mmol/L (98-108); Creatinine, Blood 1.08 mg/dL (0.60-1.20); Glomerular Filtration Rate >60 (60-); Glucose, Blood 89 mg/dL (70-99); Potassium, Blood 4.8 mmol/L (3.5-5.5); Sodium, Blood 129 mmol/L (136-145)
--- NOTE | 2019-06-07 12:27 | NUR ---
REASSESSMENT PT SLEEPING IN BED BUT EASILY AWAKENS. RECIEVED COMPLETE BEDBATH, LINEN CHANGE, AND LEG DRESSING CHANGES THIS AM. FOLLOWING THE DRESSING CHANGE, PT WAS GIVEN FENTANYL IVP FOR PAIN RELIEF. VSS. AFBEBRILE. OT TO WORK WITH PT. WILL CONTINUE TO MONITOR.
--- NOTE | 2019-06-07 15:41 | NUR ---
REASSESSMENT/HANDOFF PT REMAINS IN BED. HOB ELEVATED AND PT TURNED. VSS. AFEBRILE. PT REMAINS COARSE AND WHEEZY THROUGHOUT ALL LUNG HERNANDEZ. HAS HAD SMALL AMOUNT OF BLOOD FROM MOUTH; NO OPEN WOUND VISUALIZED OR SOURCE OF BLEEDING. LIPS CLEANED, ORAL CARE COMPLETED, AND MOISTURIZER APPLIED. PT HAS SUCTION YONKER IN HAND. MD SAMUEL AWARE OF MOUTH BLEEDING. LEGS ELEVATED. HANDOFF REPORT GIVEN TO JUSTEN NIEVES.
--- NOTE | 2019-06-07 15:53 | NUR ---
RECEIVED REPORT FROM KEREN HUA RN, ASSUMED CARE, PATIENT IS RESTING COMFORTABLY AT THIS TIME, CALL LIGHT IN REACH, WILL CONTINUE TO MONITOR.
--- NOTE | 2019-06-07 17:07 | NUR ---
PATIENT CONTINUES TO BLEED FROM ORAL CAVITY, EXTENSIVE MOUTH CARE PROVIDED, PATIENT TOOK MEDS WITH APPLESAUCE AND ALSO RECEIVED LASIX IV, PATIENT WAS SITTING UP AT A 90 DEGREE ANGLE AND ASPIRATED ON MEDICATIONS, SUCTIONED AND LEFT SITTING AT A 90 DEGREE ANGLE, DR. SAMUEL AWARE OF CONTINUED ORAL BLEEDING, CALL LIGHT IN REACH, WILL CONTINUE TO MONITOR.
--- NOTE | 2019-06-07 17:34 | NUR ---
SHIFT SUMMARY NOTE: NO ACUTE EVENTS DURING THIS SHIFT, VSS, AFEBRILE, PATIENT RECEIVED FENTANYL 25 MCG IV ONCE AFTER THIS RN TOOK OVER PATIETN CARE, PATIENT WAS CHANEGD D/T INCONTINENCE AND LASIX ADMINISTRATION, BILATERAL LOWER EXTREMITIES WRAPPED AND SLIGHTLY OOZING, SKIN IS MACERATED, ALSO PATIENT HAS ORAL BLEEDING, DR. SAMUEL AWARE, NO ORDERS RECEIVED, FOR DETAILS SEE SHIFT ASSESSMENT AND NURSES NOTES, CALL LIGHT IN REACH, WILL CONTINUE TO MONITOR, AND GIVE REPORT TO ONCOMING PRODUCT SAFETY TECHNICAL ASSISTANT.
--- NOTE | 2019-06-08 03:00 | NUR ---
PERMISSION TO UPDATE PT PROVIDED VERBAL CONSENT TO UPDATE DAUGHTERCHANELLE, ON CURRENT CONDITION ON THE TELEPHONE. SPOKE WITH DAUGHTER ON PHONE ABOUT CURRENT ILLNESS AND PROGNOSIS. EXPRESSED TO FAMILY THE SEVERITY OF ILLNESS AND COMORBIDITIES, EXPLAINED THE IMPORTANCE OF PALLIATIVE CARE CONSULTATION AND FAMILY BEING PRESENT TO ENSURE THAT PATIENT AND FAMILY ARE ON BOARD WITH PLAN OF CARE MOVING FORWARD. FAMILY VERY PLEASANT AND AGREEABLE TO WHATEVER PLAN OF CARE PATIENT AGREES TO FOLLOW PER PHYSICIAN RECOMMENDATIONS.
[2019-06-08 03:29] LABS: Hematocrit 26.7 % (37.0-53.0); Hemoglobin 7.8 g/dL (13.5-17.5); Mean Corpuscular HGB 23.7 pg (26.0-34.0); Mean Corpuscular HGB Conc 29.2 g/dL (31.5-36.5); Mean Corpuscular Volume 81 fL (80-100); Mean Platelet Volume 8.7 fL (9.1-12.4); Platelet Count 245 K/mm3 (150-400); RDW Coefficient Variation 19.1 % (11.7-14.2); RDW Standard Deviation 56.4 fL (35.1-46.3); Red Blood Cell Count 3.29 M/mm3 (4.30-5.90); White Blood Cell Count 6.94 K/mm3 (4.00-11.30)
[2019-06-08 03:46] LABS: Anion Gap 8 mmol/L (6-16); Blood Urea Nitrogen 27 mg/dL (8-24); Bun/Creatinine Ratio 26.5 (12.0-20.0); CO2, Blood 25 mmol/L (21-32); Calcium, Blood 7.9 mg/dL (8.5-10.1); Chloride, Blood 96 mmol/L (98-108); Creatinine, Blood 1.02 mg/dL (0.60-1.20); Glomerular Filtration Rate >60 (60-); Glucose, Blood 108 mg/dL (70-99); Potassium, Blood 4.2 mmol/L (3.5-5.5); Sodium, Blood 129 mmol/L (136-145)
--- NOTE | 2019-06-08 06:38 | NUR ---
SHIFT SUMMARY PT WITH MENTATION THAT HAS BEEN SOMEWHAT LABILE THROUHGOUT THE NIGHT. AT START OF SHIFT, PT WAS LETHARGIC, BUT ROUSABLE TO VERBAL STIMULI. SHIFT WENT ON, PT WOULD WAS ALERT AND UTILIZING CALL LIGHT FOR ASSISTANCE WITH CARE. VSS. MOSTLY PLEASANT AND COOPERATIVE WITH CARE. PT BECAME IRRITABLE AT ONE POINT WHEN WANTING FOOD AND WATER. PT EDUCATED EXTENSIVELY ON RATIONALE FOR NPO STATUS WITH EXCEPTION OF MEDS CRUSHED IN APPLESAUCE- PT VERBALIZED UNDERSTANDING, BUT REMAINS FRUSTRATED. ORAL CAVITY CONTINUES TO HAVE BLEEDING FROM WHAT APPEARS TO BE CHEEKS AND LIPS- PROVIDER AWARE . EXTENSIVE ORAL CARE PROVIDED WITH SUCTION SWABS AND MOUTH MOISTERIZER. PT TOLERATED CRUSHED MEDS IN APPLESAUCE WELL WHEN SITTING UPRIGHT AND INSTRUCTED TO UTILIZE CHIN-TUCK TECHNIQUE; PT DID NOT COUGH OR CHOKE AFTER SWALLOWING. O2 SATS HAVE REMAINED >90% ON 1.5L VIA NASAL CANNULA. NO OTHER CHANGES NOTED FROM INITIAL ASSESSMENT. WILL CONTINUE TO MONITOR AND REPORT TO ONCOMING SHIFT RN. BED IN LOW POSITION, CALL LIGHT IN REACH. BED ALARM SET FOR SAFETY.
--- NOTE | 2019-06-08 08:12 | NUR ---
DR SAMUEL ROUNDS DR SAMUEL ROUNDED, UPDATED ON PT STATUS. PLAN TO CHANGE CBG TO Q6H AND LASIX DOSE TO BE INCREASED TO 60MG. PER DR SAMUEL, CONSIDERING NUTRITIONAL OPTIONS PT REMAINS NPO D/T ASPIRATION RISK, MAY ADD D50 OR PPN. PLAN TO HAVE PALLIATIVE CARE SEE PT AND TALK WITH FAMILY. WILL CONT TO MONITOR PT.
--- NOTE | 2019-06-08 08:59 | NUR ---
PHYSICAL THERAPY AND SPEECH THERAPY PHYSICAL THERAPY WORKED WITH PT. PT PREMEDICATED WITH FENTANYL. PER PT THE FENTANYL HELPED WITH THE 8/10 PAIN, BRINGING IT DOWN TO 5, THEN AFTER WORKING WITH PHYSICAL THERAPY IT RETURNED TO 8. PT NOW WITH SPEECH THERAPY AT BEDSIDE.
--- NOTE | 2019-06-08 11:35 | NUR ---
DRESSING CHANGE DONE BEDBATH DONE. PT REPOSITIONED FOR COMFORT. REFUSED REPOSITIONING TO ONE SIDE OR OTHER AT THIS TIME. DRESSING CHANGE TO BLE DONE. EXTREMITIES ELEVATED ON PILLOWS. PT REPORTING PAIN AND ASKING FOR FENTANYL. PLAN TO ADMINISTER FENTANYL PER ORDERS TO ASSIST MANAGEMENT OF PAIN. CALL LIGHT IN REACH. WILL CONT TO MONITOR PT.
--- NOTE | 2019-06-08 14:20 | NUR ---
CALL TO PALLIATIVE CARE PALLIATIVE CARE CALLED TO COME SPEAK TO PT WHILE FAMILY PRESENT. ABDOUL PALLIATIVE CARE RN TO COME SEE PT THIS SHIFT.
--- NOTE | 2019-06-08 16:10 | NUR ---
PALLIATIVE CARE ABDOUL, PALLIATIVE CARE RN MET WITH PT TO DISCUSS PLAN GOING FORWARD. ACCORDING TO ABDOUL PT WISHES TO CONTINUE COURSE WITH FULL CODE AND DOES NOT WANT TO DISCUSS ROLE OF HOSPICE. ABDOUL TO CALL AND SPEAK WITH PT'S DAUGHTER WHO IS ALSO MEDICAL POA KIRSTY AND REEVALUATE PT TOMORROW.
--- NOTE | 2019-06-08 16:13 | NUR ---
Initial Visit: Pt is admitted for CHF related issues and has multiple comorbidities. He is known to palliative care. PC has counseled both pt and his family during past admissions. Pt has a full code status POLST form on file. He has been very adamant about keeping full code, even with his continued chronic problems and continued decline. Pt is alert, oriented. He reports that he is painful in his legs and his feet, 8/10 pain level. He reports that he watches the time and it is time for his next dose of fentanyl. He reports that Percocet was "a disaster" as it caused itching. He states that the dose he is getting brings his pain down to about a 5/10 level. Pt is chronically ill-appearing and has had multiple ER visits and admissions to the hospital. He has not followed up as suggested with GI as outpatient. Nurse states that he wants staff to perform tasks that he would likely be able to perform himself. Will attempt to call his family tomorrow, or catch them while they are visiting to go over advance care planning. A candid discussion with physician may be helpful, with palliative care follow up to answer questions. Pt does not seem to have realistic view of his multiple, chronic comorbidities. When asked if he has made planning for if he does not get better and continues to get worse, he states that he is "thinking about it." He confirms full code and states that he is not interested in changing it to something more appropriate. He is "fine" with CPR and intubation if necessary. He is nearing hospice level, end of life stage. Suggest evaluation by hospice, this was mentioned last palliative care visit with the pt during his last admission. None of the family or the pt was interested in this, and suggestion that Home Health agency should request hospice consult with the pt and family to determine if he was at end of life stage. It is likely that the pt will continue to decline, appears to be hospice appropriate at this time.
--- NOTE | 2019-06-08 18:22 | NUR ---
SHIFT SUMMARY PT RESTING IN BED WITH EXTREMITIES ELEVATED, CONTINUES TO REFUSE ANY REPOSITIONING FROM SIDE TO SIDE STATING "WHAT GOOD WOULD THAT DO". BEDBATH DONE WITH DRESSING CHANGES TO BLE AND FEET. PT BASKET TURNER LIGHT FREQUENTLY FOR "THE SHOT" IN REFERENCE TO FENTANYL FOR PAIN. ATTEMPTED PERCOCET THIS MORNING BETWEEN FENTANYL DOSES BUT PT REPORTED IT MADE HIM "ITCHY" AND "DIDN'T HELP". "ITCHY" FEELING WENT AWAY, PT DENIES ANY FURTHER "ITCHY" FEELING. PT REPORTS PAIN TO BE 8/10, VERBALIZES THAT LOWEST PAIN EVER REACHED WAS A 7/10 HOWEVER THIS RN WOULD ENTER THE ROOM TO FIND PT SLEEPING REGULARLY AFTER A REQUEST FOR MORE OF "THE SHOT". CALLED PALLIATIVE CARE TO SPEAK WITH PT ABOUT PRISON PLAN OF CARE TO WHICH PT WAS NOT RECEPTIVE, HOWEVER WHEN ROUNDING AFTER PALLIATIVE CARE RN LEFT PT HAD QUESTIONS ABOUT HOSPICE - "WOULD THEY GIVE ME PAIN MEDICINE". I ENCOURAGED PT TO ASK THE PALLIATIVE CARE RN WHATEVER QUESTIONS HE MAY HAVE ABOUT HOSPICE AND INFORMED HIM THAT IF HE WERE TO ELECT TO GO ON HOSPICE THAT DIDN'T MEAN HE COULD NEVER COME OFF HOSPICE IF HE IMPROVED. PT VERBALIZED INTEREST IN READDRESSING THIS TOPIC. PHYSICAL THERAPY WORKED WITH PT THIS MORNING AND WAS ABLE TO DANGLE PT AT BEDSIDE. SPEECH THERAPY REEVALUATED PT AND UPGRADED HIS DIET TO PUREE, FEEDER. PT TOLERATING PO INTAKE WELL WITH NO S/SX ASPIRATION WHILE SITTING HIGH QURESHI. ORAL CARE DONE. PT CONTINUES TO HAVE PRODUCTIVE COUGH, SUCTIONING SELF WITH YONKER. LS REMAIN COARSE T/O WITH EXPIRATORY WHEEZES. SPO2 99-100% ON 1.5LPM VIA NC. VSS, SEE FLOWSHEET. CBG STABLE. CLINIMIX RUNNING AT 50ML/HR PER ORDERS. NO ACUTE CHANGES T/O SHIFT. WILL CONT TO MONITOR PT.
[2019-06-09 03:42] LABS: Hematocrit 25.8 % (37.0-53.0); Hemoglobin 7.8 g/dL (13.5-17.5); Mean Corpuscular HGB Conc 30.2 g/dL (31.5-36.5); Mean Corpuscular Volume 79 fL (80-100); Mean Platelet Volume 8.6 fL (9.1-12.4); Platelet Count 257 K/mm3 (150-400); RDW Coefficient Variation 18.9 % (11.7-14.2); RDW Standard Deviation 54.4 fL (35.1-46.3); Red Blood Cell Count 3.25 M/mm3 (4.30-5.90)
[2019-06-09 04:08] LABS: Anion Gap 8 mmol/L (6-16); Blood Urea Nitrogen 26 mg/dL (8-24); Bun/Creatinine Ratio 27.9 (12.0-20.0); CO2, Blood 27 mmol/L (21-32); Calcium, Blood 7.9 mg/dL (8.5-10.1); Chloride, Blood 96 mmol/L (98-108); Creatinine, Blood 0.93 mg/dL (0.60-1.20); Glomerular Filtration Rate >60 (60-); Glucose, Blood 104 mg/dL (70-99); Sodium, Blood 131 mmol/L (136-145)
--- NOTE | 2019-06-09 06:44 | NUR ---
SHIFT SUMMARY PT HAS REMAINED AOX4 THROUGHOUT SHIFT WITH NO EPISODES OF LETHARGY NOTED. VSS. MOSTLY COOPERATIVE WITH CARE. PT HAS REMAINED ON BEDREST THORUGHOUT THE NIGHT AND HAS BEEN SEMI COOPERATIVE WITH TURNING, ALLOWING TO BE TURNED OFF OF BACKSIDE A FEW TIMES THROUGHOUT THE NIGHT, BUT REFUSING TO TURN Q2. MEDICATED SEVERAL TIMES THROUGHOUT SHIFT FOR PAIN THAT DECREASED SLIGHTLY WITH ORDERED MEDICATIONS- PT REPORTS THAT THE "LOWEST HIS PAIN HAS GOTTEN WAWS A 6" WITH THE "PAIN SHOT". PT REPORTS THAT HE USES OXYCODONE AT HOME FOR PAIN CONTROL, BUT THAT IT MAKES HIM ITCHY. O2 SATS HAVE REMAINED 98-99% ON 1L VIA NASAL CANNULA. BLOOD SUGARS HAVE REMAINED >100 THROUGHOUT THE NIGHT. PT HAS TOLERATED PO INTAKE AND MEDS CRUSHED WITH APPLESAUCE WELL WITH INSTRUCTION ON USING CHIN-TUCK TECHNIQUE. LEGS REMAIN ELEVATED AND PT TOLERATES WELL. NO OTHER CHANGES NOTED FROM INITIAL ASSESSMENT. WILL CONTINUE TO MONITOR AND REPORT TO ONCOMING SHIFT RN. BED IN LOW POSITION, CALL LIGHT IN REACH. BED ALARM SET FOR SAFETY.
--- NOTE | 2019-06-09 07:35 | NUR ---
ASSUMED CARE: PT RESTING IN BED AT THIS TIME. STAFF AT BEDSIDE REPOSITIONING
--- NOTE | 2019-06-09 10:26 | NUR ---
Clinical Visit: Reviewed with nursing. Sushma reports that pt is requesting increasing pain medications, very frequently. One of the nurses has talked with the pt about comfort care/hospice plan. He was advised that comfort plan would include increased pain managment, as goals of care would be changed. Apparently, he responded with interest to this. PHOTOGRAMMETRIC TECH reports that pt is a full assist with meals, he is not able to feed himself. Pt is alert, oriented, anxious. He reports high pain levels, IV fentanyl is the only thing that is adequately covering his pain. He was given tablets for pain and states that "they just don't work for me." He is requesting IV pain medications now. Reviewed comfort care/hospice plan with him. He does not want this plan and his goal is to get better. He reports that he stood up three times today and is working really hard toward his goals. Reviewed better pain control with a new comfort plan. He is not interested. Recommend fentanyl patch to address pain. Pt is not able to use IV at home. He would be better managed on a patch. Pt feels that he would be able to "do more things" if his pain was managed regularly and adequately. Pt is feeling more painful in his legs and his feet. He self suctions frequently. No other concerns at this time. Will follow up with pt if family arrives. At this time, he is making his own decisions and is remaining full code with no changes to goals of care.
--- NOTE | 2019-06-09 14:40 | NUR ---
DISCUSSED PT'S STATUS WITH DR SAMUEL. AWARE OF PT'S NEED FOR PAIN MEDICATION AND HIS ATTEMPT TO DECLINE ORAL PAIN MEDS VS IV PAIN EMDS. ASKED ABOUT STATUS CHANGE AND STATES HE WISHES TO KEEP PCU STATUS AT THIS TIME. WAS ON PHONE WITH PT'S FAMILY MEMBER I ENTER ROOM
--- NOTE | 2019-06-09 15:36 | NUR ---
PT C/O ITCHING. STATED HE FELT THAT IT WAS BECAUSE OF THE PERCOCET THAT HE HAS BEEN RECEIVING. DR. SAMUEL CALLED TO DISCUSS PAIN MANAGEMENT OPTIONS AND ABNL SODIUM LEVEL. NO NEW ORDERS AT THIS TIME, STATED THAT HE PUT IN THE ORDER FOR CLARITIN FOR C/O ITCHING AND THAT SODIUM LEVEL IS TRENDING IN EXPECTED DIRECTION.
--- NOTE | 2019-06-09 18:53 | NUR ---
PT RESTING IN BED COMFORTABLY AT THIS TIME IN NO ACUTE DISTRESS. WAS MONITORED EVERY 1-2 HOURS WITH NEEDS MET. DENIES ANY NEEDS AT THIS TIME. CALL LIGHT AND POSSESSIONS IN REACH, FAMILY AT THE BEDSIDE.
--- NOTE | 2019-06-09 19:15 | NUR ---
PT RESTING IN BED COMFORTABLY, IN NO ACUTE DISTRESS. WAS MONITORED EVERY 1-2 HOURS WITH NEEDS MET. DENIES ANY NEEDS AT THIS TIME. CALL LIGHT AND POSSESSIONS IN REACH. WATCHING TV AT THIS TIME.
--- NOTE | 2019-06-09 22:38 | NUR ---
HELPED USE URINAL, HAVE TO HOLD FOR PT, REQUEST PAIN MED WHEN AWAKE, CALL LIGHT IN REACH AND USED FREQUENTLY ALONG WITH SUCTION
[2019-06-10 03:42] LABS: Hematocrit 25.5 % (37.0-53.0); Hemoglobin 7.6 g/dL (13.5-17.5); Mean Corpuscular HGB 23.7 pg (26.0-34.0); Mean Corpuscular HGB Conc 29.8 g/dL (31.5-36.5); Mean Corpuscular Volume 79 fL (80-100); Mean Platelet Volume 8.5 fL (9.1-12.4); Platelet Count 225 K/mm3 (150-400); RDW Coefficient Variation 18.7 % (11.7-14.2); RDW Standard Deviation 54.4 fL (35.1-46.3); Red Blood Cell Count 3.21 M/mm3 (4.30-5.90); White Blood Cell Count 6.33 K/mm3 (4.00-11.30)
[2019-06-10 04:00] LABS: Anion Gap 6 mmol/L (6-16); Blood Urea Nitrogen 24 mg/dL (8-24); Bun/Creatinine Ratio 25.5 (12.0-20.0); CO2, Blood 29 mmol/L (21-32); Calcium, Blood 7.7 mg/dL (8.5-10.1); Chloride, Blood 97 mmol/L (98-108); Creatinine, Blood 0.94 mg/dL (0.60-1.20); Glomerular Filtration Rate >60 (60-); Glucose, Blood 109 mg/dL (70-99); Potassium, Blood 3.9 mmol/L (3.5-5.5); Sodium, Blood 132 mmol/L (136-145)
--- NOTE | 2019-06-10 06:26 | NUR ---
still confused and disorintated, easily redirectable but requests assistance for adls able to do himself, encourage him to be as self reliant as possible, will discuss with day staff need to reduce medication prescribed, saline locked, rm air, bed in low position, call light in reach, will continue to monitor and treat until share bsr with day staff and pt
--- NOTE | 2019-06-10 16:10 | NUR ---
Pt is alert, oriented. He reports pain 8/10. He is requesting more IV fentanyl. He reports increased anxiety. There is a long time friend present in the room; further conversation regarding plan of care is not appropriate at this time. Called and spoke to Jammie, pt's . She states that they will come to visit him later on tonight. She has talked to him on the phone today, and he reported to her that he is feeling really bad now. She is upset because he has told her that when he calls on the call light to get help with bathroom needs, nobody is coming to help him and he ended up peeing in bed instead. She is very concerned about this and is telling me that he is "quite helpless and needs help right now." Review of notes and spoke to RUBY. She states that pt is able to do many things for himself, he uses his call light to excess. She has been rounding frequently on him and staff has encouraged him to do as much as he can for himself. If he is reminded that he can use the buttons on his bed to lower it, he reaches over and does do this for himself. Will follow up with family if they arrive tonight. Pt appears to be worsening. Nursing reports that he is refusing some aspects of care today. Notes from doctors indicate that pt has very poor prognosis.
--- NOTE | 2019-06-10 18:16 | NUR ---
SHIFT SUMMARY NO ACUTE CAHNGES THROUGH THE DAY. PT CONTINUES TO DECLINE PALLIATIVE CARE AND DIFFERENT PAIN MEDICATION OPTIONS. PT REFUSES PO PAIN MEDICATION AND STATES IT "MAKES HIM ITCH & DOES NOT WORK". PAIN HAS BEEN MEDICATED WITH 25 MCG IV FENTANYL PER EMAR. PT REMAINS A&O, O2 99% ON 1 L VIA NC, IV SL, VSS. PT IS ON BED REST BUT DID COMPLY WITH THERAPY TODAY & ATTEMPTED SOME EXCERCISES. DRSG'S WERE CHANGED TO BLE, LEGS ELEVATED ON PILLOWS. PT REMAINS ON A PUREE/NECTAR THICK DIET, HE HAS BEEN NON COMPLIANT WITH MOUTH SWABS, PT EDUCATION WAS PROVIDED, SWABS WERE TAKEN AWAY FROM THE BEDSIDE. PT HAS BEEN CALLING OUT FOR ASSISTANCE MULTIPLE TIMES DESPITE FREQUENT REMINDERS OF PT ROUNDING ROUTINE AND INCREASED ROUNDING. CALL LIGHT REMAINS IN REACH, WCTM & REPORT TO NOC EZEQUIEL
--- NOTE | 2019-06-10 18:30 | NUR ---
FAMILY AT THE BEDSIDE ASKING QUESTIONS REGARDING PALLIATIVE CARE VS REHAB. EDUCATION WAS PROVIDED. FAMILY WAS ENC TO WRITE A LIST OF CONCERNS FOR THE PHYSICIAN WELL A LIST OF EXPECTATIONS IF THE PT CHOOSES TO CONTINUE TO RESIST PALLIATIVE/HOSPICE CARE AND FIGHT FOR REHAB. FAMILY WAS ENC TO CALL TO SET UP A FAMILY MEETING WITH THE PHYSICIAN AND PALLIATIVE CARE TO SPEAK ABOUT OPTIONS.
[2019-06-11 03:59] LABS: Hemoglobin 7.7 g/dL (13.5-17.5); Mean Corpuscular HGB 23.3 pg (26.0-34.0); Mean Corpuscular HGB Conc 29.6 g/dL (31.5-36.5); Mean Corpuscular Volume 79 fL (80-100); Mean Platelet Volume 8.6 fL (9.1-12.4); Platelet Count 213 K/mm3 (150-400); White Blood Cell Count 5.88 K/mm3 (4.00-11.30)
[2019-06-11 04:26] LABS: Anion Gap 6 mmol/L (6-16); Blood Urea Nitrogen 24 mg/dL (8-24); Bun/Creatinine Ratio 25.5 (12.0-20.0); CO2, Blood 30 mmol/L (21-32); Calcium, Blood 7.8 mg/dL (8.5-10.1); Chloride, Blood 96 mmol/L (98-108); Creatinine, Blood 0.94 mg/dL (0.60-1.20); Glomerular Filtration Rate >60 (60-); Glucose, Blood 110 mg/dL (70-99); Potassium, Blood 3.7 mmol/L (3.5-5.5); Sodium, Blood 132 mmol/L (136-145)
--- NOTE | 2019-06-11 07:34 | NUR ---
SHIFT SUMMARY PT HAS REMAINED AOX4 THROUGHOUT SHIFT. VSS. SEMI COOPERATIVE WITH CARE. PT CONTINUES TO CALL OUT INTO THE HALLWAY FOR HELP, DESPITE BEING REMINDED FREQUENTLY TO UTILIZE CALL LIGHT AND ABOUT HOURLY CARE ROUNDING. O2 SATS HAVE REMAINED >90% ON 1L VIA NASAL CANNULA. PT MEDICATED MANY TIMES FOR PAIN THROUGHOUT THE NIGHT THAT DECREASES SLIGHLTY WITH ORDERED IV PAIN MEDICATIONS ONLY. PT REFUSING PO MEDICATIONS, STATING THAT THEY MAKE HIM ITCH. PT INFORMED THAT ORDERED CLARITON FOR ITCHING SYMPTOMS, BUT PT IS STILL REFUSING PO MEDICATIONS. EXTENSIVE EDUCATION PROVIDED ON PAIN CONTROL AT HOME AND UTILIZATION FOR ALTERNATE PAIN MANAGEMENT METHODS WELL PO MEDICATION. PT IS UNRECEPTIVE TO THIS INFORMATION AT THIS TIME. DAUGHTER, CHANELLE, UPDATED THIS AM ON PT CONDITION. NO OTHER CHANGES NOTED FROM INITIAL ASSESSMENT. WILL CONTINUE TO MONITOR AND REPORT TO ONCOMING SHIFT RN. BED IN LOW POSITION, CALL LIGHT IN REACH. BED ALARM SET FOR SAFETY.
--- NOTE | 2019-06-11 09:51 | NUR ---
UPDATE PT ALERT AND ORIENTED. VS STABLE. O2 SATS REMAIN ABOVE 90% ON 1L NC. BP STABLE. HR AFIB RATE 90'S, BUT TELEMETRY IS TO BE DISCONTINUED. DISCUSSION WITH THE PT THIS AM ABOUT PAIN MANAGEMENT AND TRYING ORAL MEDICATION INSTEAD OF IV FENTANYL. PT WOULD LIKE TO TRY HYDROCODONE. AWAITING NEW ORDERS. PT TO BE TRANSFERRED TO MEDICAL FLOOR. REPORT CALLED TO MEDICAL FLOOR RN. WILL TAKE PT UP BY BED.
--- NOTE | 2019-06-11 10:15 | NUR ---
PT ARRIVED TO ROOM 301 FROM PCU 3 VIA BED, PT TRANSFERRED TO NEW BED USING SLIDER SHEET AND REPOSITIONED FOR COMFORT. ORIENTED TO ROOM AND CALL SYSTEM. CALL BUENROSTRO IN REACH. 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 PT ASKING FOR PAIN MEDICATIONS, WILL CHECK EMAR AND MEDICATE ORDERED.
--- NOTE | 2019-06-11 11:43 | NUR ---
Spiritual care visit conducted. Patient is lying in bed and moaning loudly. I help patient push the RN button on his remote. Patient asks for more pain meds and water. I then provide prayer. Patient is very appreciative. I will continue to remain avialable to patient and family.
--- NOTE | 2019-06-11 13:10 | NUR ---
PT RECEIVING ONE UNIT PRBC AT THIS TIME. TOLERATING WELL, NO SOB, CP, FEVER OR RASH. WILL CONTINUE TO MONITOR
--- NOTE | 2019-06-11 16:00 | NUR ---
BLOOD TRANSFUSION COMPLETE, PT TOLERATED WELL, NO S/S OF REACTION. 20 MG IV LASIX GIVEN S/P PRBC ORDERED. WILL CONTINUE TO MONITOR.
--- NOTE | 2019-06-11 18:30 | NUR ---
PT RECEIVED 1 UNIT PRBC THIS AFTERNOON AND TOLERATED WELL. B/L LEGS WITH ULCERS AND PT EXPRESSES HIGH PAIN OFTEN. MEDICATED FREQ PER EMAR WITH SHORT TERM EFFECT. HE CALLS WITH CALL LIGHT FREQUENTLY WITH SMALL WANTS, REQUESTS AND QUESTIONS. NO ACUTE CHANGES NOTED SINCE ARRIVAL TO ROOM 301. WILL CONTINUE TO MONIOR AND REPORT TO ONCOMING RN
--- NOTE | 2019-06-12 00:43 | NUR ---
CBG 43 cL ON Q6 CHECK. DEXTROSE 50 1/2 SYRINGE, 25 mL GIVEN PER EMAR FOR HYPOGLYCEMIA. WILL RECHECK CBG IN THIRTY MINUTES PER MILL MACHINIST.
--- NOTE | 2019-06-12 01:06 | NUR ---
PATIENT AXOX 3 BEDFAST. SLEEPING BUT AROUSABLE. WILL CONTINUE TO MONITOR.
--- NOTE | 2019-06-12 01:27 | NUR ---
CBG RECHECK AT 113. PATIENT AXOX 3 AND HOLDING CONVERSATION. UP FROM 43 cL. WILL CONTINUE TO MONITOR.
--- NOTE | 2019-06-12 04:20 | NUR ---
SHIFT SUMMARY PATIENT CBG 43 cL WITH Q6 CHECK. D 50 1/2 SYRINGE GIVEN PER EMAR AND RECHECKED AT CBG 113. PATIENT AXOX 3 AND BEDFAST. TAKES MEDICATION CRUSHED IN APPLE SAUCE. ON 1.5 L O2 NC. VSS/AFEBRILE. DENIES SOB AND N/V. REPORTED FEET/ANKLE PAIN AND FENTANYL IV 25 MCG GIVEN PER EMAR. DROPLET PRECAUTIONS. COOPERATIVE WITH CARE. CALL LIGHT IN REACH. BED IN LOWEST POSITION. WILL CONTINUE TO MONITOR UNTIL DAY SHIFT NURSE ASSUMES CARE.
[2019-06-12 04:28] LABS: Hematocrit 27.8 % (37.0-53.0); Hemoglobin 8.5 g/dL (13.5-17.5); Mean Corpuscular HGB Conc 30.6 g/dL (31.5-36.5); Mean Corpuscular Volume 79 fL (80-100); Mean Platelet Volume 8.4 fL (9.1-12.4); Platelet Count 214 K/mm3 (150-400); RDW Coefficient Variation 18.6 % (11.7-14.2); RDW Standard Deviation 53.2 fL (35.1-46.3); Red Blood Cell Count 3.54 M/mm3 (4.30-5.90); White Blood Cell Count 6.63 K/mm3 (4.00-11.30)
[2019-06-12 04:44] LABS: Anion Gap 6 mmol/L (6-16); Blood Urea Nitrogen 26 mg/dL (8-24); Bun/Creatinine Ratio 30.6 (12.0-20.0); CO2, Blood 29 mmol/L (21-32); Calcium, Blood 7.7 mg/dL (8.5-10.1); Chloride, Blood 98 mmol/L (98-108); Creatinine, Blood 0.85 mg/dL (0.60-1.20); Glomerular Filtration Rate >60 (60-); Glucose, Blood 85 mg/dL (70-99); Potassium, Blood 3.9 mmol/L (3.5-5.5); Sodium, Blood 133 mmol/L (136-145)
--- NOTE | 2019-06-12 06:19 | NUR ---
Q6 CBG 97.
--- NOTE | 2019-06-12 17:19 | NUR ---
SHIFT SUMMARY- PT IS VERY PAINFUL IN HIS LEGS, MEDICATED PER MAR. PREFORMED WOUND CARE TO BILATERAL LOWER EXTREMITITE. PT HAS CORSE LUNG SOUNDS AND PRODUCTIVE COUGH. PT IS USING SUCTION TO REMOVE EXCESS SECREATIONS. PT WORKED WITH PHYSICAL THERAPY THIS AFTERNOON. SAT UP AT THE EDGE OF THE BED FOR A LITTLE BIT.
--- NOTE | 2019-06-13 03:12 | NUR ---
78 year old [employer] , Retired Microelectronics Engineer with chronic disability continues in contact droplet isolation for MRSA in sputum and wounds. PT has vasostatic wound bilat le and chronic pain related to. Dcubs and chronic wounds. PT has chronic pain with poor pain control on short acting IV fentanyl 25 mcg and 1 norco prn. PT has anxiety and makes multiple requests. Puree diet with nectar thick liqiuds. PT appears much older than actual age and has spent a large amt of 2019 hospitalized. Acute on chronic kidney disease. with adult Children. DTR calls and discussing prognosis. Support and discussion on other options with Pallative care and Dc planning needed.
[2019-06-13 04:44] LABS: Hematocrit 27.2 % (37.0-53.0); Mean Corpuscular HGB 23.4 pg (26.0-34.0); Mean Corpuscular HGB Conc 29.4 g/dL (31.5-36.5); Mean Corpuscular Volume 80 fL (80-100); Mean Platelet Volume 8.7 fL (9.1-12.4); Platelet Count 196 K/mm3 (150-400); RDW Coefficient Variation 18.9 % (11.7-14.2); RDW Standard Deviation 54.3 fL (35.1-46.3); Red Blood Cell Count 3.42 M/mm3 (4.30-5.90); White Blood Cell Count 5.63 K/mm3 (4.00-11.30)
[2019-06-13 05:05] LABS: Anion Gap 6 mmol/L (6-16); Blood Urea Nitrogen 25 mg/dL (8-24); Bun/Creatinine Ratio 27.8 (12.0-20.0); CO2, Blood 32 mmol/L (21-32); Calcium, Blood 7.5 mg/dL (8.5-10.1); Chloride, Blood 95 mmol/L (98-108); Glomerular Filtration Rate >60 (60-); Glucose, Blood 92 mg/dL (70-99); Potassium, Blood 3.8 mmol/L (3.5-5.5); Sodium, Blood 133 mmol/L (136-145)
--- NOTE | 2019-06-13 16:25 | NUR ---
SHIFT SUMMARY PT A&O x4. PT HAS CHRONIC PAIN AND IS TRANSITIONING TO ORAL PAIN MEDS AND PAIN PATCH TO PREPARE FOR D/C. DRESSING CHANGED AND TOLORATED WELL. PT WAS PLACED IN THE CHAIR BY PT AND TOLORATED WELL. PT SCRATCHING AT SELF CAUSING ABRATIONS ON BILATERAL KNEES.
--- NOTE | 2019-06-13 21:28 | NUR ---
BEGINNING SHIFT NURSE ASSUMED CARE OF PT AT 1900. PT WAS LYING IN BED WATCHING TV WITH FAMILY. FAMILY IS VERY INVOLVED WITH CARE. PT IS LETHARGIC BUT EASILY AWOKEN, A/O X4. HEART SOUNDS IRREGULAR, EXPIRATORY WHEEZING HEARD ON AUSCALTATION. PT LEG WOUNDS DRESSED. PT IS CURRENTLY SLEEPING, CALL LIGHT IN REACH, BED IN LOWEST POSTION, WILL CONTINUE TO MONITOR.
--- NOTE | 2019-06-14 04:02 | NUR ---
END SHIFT SUMMARY PT WAS CONTINENT DURING THE NIGHT. PT DID NOT C/O PAIN. DRESSING REENFORCED AND LEGS ELEVATED DUE TO WEEPING. PT BIT THEIR TONGUE, ORAL CARE GIVEN. CALL LIGHT IN REACH, BED IN LOWEST POSITION, WILL CONTINUE TO MONITOR UNTIL DAYSHIFT NURSE ARRIVES.
[2019-06-14 04:59] LABS: BASOPHILS ABSOLUTE AUTO 0.07 K/mm3 (0.00-0.23); BASOPHILS PERCENT AUTO 1 % (0-2); EOSINOPHILS ABSOLUTE AUTO 0.58 K/mm3 (0.00-0.68); EOSINOPHILS PERCENT AUTO 9 % (0-6); Hematocrit 28.6 % (37.0-53.0); Hemoglobin 8.5 g/dL (13.5-17.5); IMMATURE GRAN ABSOLUTE AUTO 0.05 K/mm3 (0.00-0.10); IMMATURE GRAN PERCENT AUTO 1 % (0-1); LYMPHOCYTES ABSOLUTE AUTO 1.06 K/mm3 (0.84-5.20); LYMPHOCYTES PERCENT AUTO 17 % (21-46); MONOCYTES ABSOLUTE AUTO 1.09 K/mm3 (0.16-1.47); MONOCYTES PERCENT AUTO 18 % (4-13); Mean Corpuscular HGB 23.9 pg (26.0-34.0); Mean Corpuscular HGB Conc 29.7 g/dL (31.5-36.5); Mean Corpuscular Volume 80 fL (80-100); Mean Platelet Volume 8.8 fL (9.1-12.4); NEUTROPHILS ABSOLUTE AUTO 3.35 K/mm3 (1.96-9.15); NEUTROPHILS PERCENT AUTO 54 % (41-73); Platelet Count 218 K/mm3 (150-400); RDW Standard Deviation 55.4 fL (35.1-46.3); Red Blood Cell Count 3.56 M/mm3 (4.30-5.90)
[2019-06-14 05:37] LABS: Anion Gap 5 mmol/L (6-16); Blood Urea Nitrogen 26 mg/dL (8-24); Bun/Creatinine Ratio 29.5 (12.0-20.0); CO2, Blood 33 mmol/L (21-32); Calcium, Blood 7.9 mg/dL (8.5-10.1); Chloride, Blood 95 mmol/L (98-108); Creatinine, Blood 0.88 mg/dL (0.60-1.20); Glomerular Filtration Rate >60 (60-); Glucose, Blood 90 mg/dL (70-99); Potassium, Blood 4.3 mmol/L (3.5-5.5); Sodium, Blood 133 mmol/L (136-145)
[2019-06-14] MEDS ORDERED: DILT120 PO (08:35)
[2019-06-14] MEDS ORDERED: DOXY100 PO (08:37)
[2019-06-14] MEDS ORDERED: Fentanyl1 EACH TOP (08:37)
[2019-06-14] MEDS ORDERED: GUAI200 PO (08:38)
[2019-06-14] MEDS ORDERED: Norco 10-325 T1 EACH PO (08:39)
[2019-06-14] MEDS ORDERED: HUMALOG KW200 UNIT/1 (08:40)
[2019-06-14] MEDS ORDERED: SPIR25 PO (08:41)
[2019-06-14] MEDS ORDERED: Vsl#3 Capsule1 EACH PO (08:41)
[2019-06-14] MEDS ORDERED: Loratadine10 MG PO (08:41)
--- NOTE | 2019-06-14 12:35 | NUR ---
TRANSFER SUMMARY PT STABLE AND REPORT CALLED TO ALKA NIEVES AT [facility]. PT TRANSPORTED BY [facility] VIA W/C. FEYNTANAL PATCH INTACT ON LEFT OUTER FORE ARM. HARD SCRIPTS SENT WITH PT IN D/C FOLDER FOR FEYNTANAL PATCH AND NORCO. PT ON 2L NC
== END 2019-06-14 12:59 | DRG 291 ==
LOC: ER 15:30 → PCU 18:43 → MEDS 06-11 10:10 → ENPENDDIS 06-14 09:00 → MEDS 06-14 12:59
PROVIDERS: Emergency Medicine; Internal Medicine; Nurse Practitioner Acute Care; Physician Assistant; ADMIT Internal Medicine
DX: I13.0 Hypertensive heart and chronic kidney disease with heart failure and stage 1 through stage 4 chronic kidney disease, or unspecified chronic kidney disease (principal); I50.33 Acute on chronic diastolic (congestive) heart failure; E87.1 Hypo-osmolality and hyponatremia; N17.9 Acute kidney failure, unspecified; E11.649 Type 2 diabetes mellitus with hypoglycemia without coma; E11.22 Type 2 diabetes mellitus with diabetic chronic kidney disease; Z87.891 Personal history of nicotine dependence; T38.3X5A Adverse effect of insulin and oral hypoglycemic [antidiabetic] drugs, initial encounter; Y92.9 Unspecified place or not applicable; J44.9 Chronic obstructive pulmonary disease, unspecified; R62.7 Adult failure to thrive; E11.51 Type 2 diabetes mellitus with diabetic peripheral angiopathy without gangrene; K21.9 Gastro-esophageal reflux disease without esophagitis; E11.40 Type 2 diabetes mellitus with diabetic neuropathy, unspecified; Z79.82 Long term (current) use of aspirin; Z79.4 Long term (current) use of insulin; Z68.32 Body mass index [BMI] 32.0-32.9, adult
CPT/HCPCS: 36415; 36430; 71045; 71046; 80048; 80053; 82803; 82947; 83605; 83735; 83880; 84100; 84145; 84484; 85014; 85018; 85025; 85027; 85610; 86850; 86900; 86901; 86923; 87804; 92526; 92610; 93005; 93010; 94640; 94760; 94762; 96374; 96375; 96376; 97110; 97162; 97166; 97530; 97535; 99285-25; J0610; J1940; J3010; J7042; J7050; J7799; P9016

== ENCOUNTER 2019-07-20 10:31 | Emergency (ER) | payer MEDICARE, OTHER ==
[~2019-07-20] VITALS: Ht 182.9 cm; Wt 104.3 kg
[~2019-07-20 10:31] MED LIST changes: +DILT120 PO; +Fentanyl1 EACH TOP; +GUAI200 PO; +HUMALOG KW200 UNIT/1; +SPIR25 PO
== END 2019-07-20 14:26 | disposition home or self-care (01) ==
LOC: ER 10:31
DX: R04.0 Epistaxis (principal); E11.9 Type 2 diabetes mellitus without complications; I11.9 Hypertensive heart disease without heart failure; J44.9 Chronic obstructive pulmonary disease, unspecified; I48.91 Unspecified atrial fibrillation; Z86.73 Personal history of transient ischemic attack (TIA), and cerebral infarction without residual deficits; Z87.891 Personal history of nicotine dependence; Z88.0 Allergy status to penicillin; Z91.018 Allergy to other foods; Z79.82 Long term (current) use of aspirin; Z79.899 Other long term (current) drug therapy; Z79.2 Long term (current) use of antibiotics
CPT/HCPCS: 30905; 99283-25